=== PATIENT | male | born 1935 | race Caucasian/White ===

== ENCOUNTER 2017-04-09 22:53 | Inpatient (IN) | payer MEDICARE, OTHER ==
[~2017-04-09] VITALS: Ht 175.3 cm; Wt 108.0 kg
[~2017-04-09 22:53] MED LIST: ASPI81CH43 PO; ATOR10TA52 PO; CLOT1CRE56 TOP; DOCU-94 PO; FAMO-12 PO; FURO20TA3 PO; LACT10SO3 PO; MET25T PO; NYSTATIN CREAM TOP; POTA20TA53 PO
[2017-04-10] MEDS ORDERED: DILTIAZEM HCL 25 MG/5 ML VIAL IV ONE ×2 (00:45→01:00)
[2017-04-10 00:47] LABS: Hematocrit 36.4 % (41.0-53.0); Hemoglobin 12.2 g/dL (13.5-17.5); Mean Corpuscular Hemoglobin 27.4 pg (28.0-32.0); Mean Corpuscular Hgb Conc. 33.5 g/dL (32.0-36.0); Mean Corpuscular Volume 81.8 fL (80.0-100.0); Mean Platelet Volume 10.4 fL (7.4-10.4); Platelet Count (auto) 110 10^3/uL (140-450); Red Cell Distribution Width 16.5 % (11.6-16.0); SUSPECT VIEW TRANSMISSION; White Blood Cell 6.2 10^3/uL (4.4-10.8)
[2017-04-10 00:54] LABS: Metamyelocytes % 0; Myelocytes % 0; Promyelocytes % 0; Reactive Lymphocytes 0
[2017-04-10 00:56] LABS: Partial Thromboplastin Time 39.3 sec (22.64-33.71)
[2017-04-10 00:59] LABS: INR 1.9 (0.9-1.15); Prothrombin Time 20.8 sec (9.37-12.3)
[2017-04-10 01:13] LABS: Albumin 3.2 g/dL (3.4-5.0); BUN/Creatinine Ratio 12.1; Calcium 8.5 mg/dL (8.5-10.1); Magnesium 2.2 mg/dL (1.6-2.6); Platelet Estimate Decreased; Potassium 3.8 mmol/L (3.5-5.1)
[2017-04-10 01:14] LABS: RBC Morphology Normal
[2017-04-10 01:21] LABS: Bilirubin, Total 0.5 mg/dL (0.2-1.0)
[2017-04-10] MEDS ORDERED: MORPHINE SULF INJ 2 MG/ML SYRINGE 1ML IV PRN (02:15)
[2017-04-10] MEDS ORDERED: HYDROcodone-ACET 5/325MG TAB PO PRN (02:15)
[2017-04-10] MEDS ORDERED: METOPROLOL TARTRATE 25 MG TAB PO ONE (02:15)
[2017-04-10] MEDS ORDERED: NITROGLYCERIN 0.4 MG SL TAB SL PRN (02:15)
[2017-04-10] MEDS ORDERED: ACETAMINOPHEN 325 MG TAB PO PRN (02:15)
[2017-04-10] MEDS ORDERED: DOCUSATE SOD 100 MG CAP PO PRN (02:15)
[2017-04-10] MEDS ORDERED: ONDANSETRON HCL 4 MG/2 ML VIAL IV PRN (02:15)
[2017-04-10] MEDS ORDERED: ALBUTEROL SULF 2.5 MG/0.5ML(0.5%) NEB SOLN NEB PRN (02:15)
[2017-04-10] MEDS ORDERED: TEMAZEPAM 15 MG CAP PO PRN (02:15)
[2017-04-10 02:43] LABS: Temperature: 21.4 C (20.0-25.0)
[2017-04-10] MEDS ORDERED: METOPROLOL TARTRATE 50 MG TAB PO ONE (03:15)
[2017-04-10 04:11] VITALS: BP 148/77
[2017-04-10 08:31] LABS: Partial Thromboplastin Time 40.5 sec (22.64-33.71)
[2017-04-10 08:37] LABS: INR 1.84 (0.9-1.15); Prothrombin Time 20.2 sec (9.37-12.3)
[2017-04-10] MEDS ORDERED: DIGOXIN (250MCG/ML) 2 ML AMPULE IV ONE (08:45)
[2017-04-10] MEDS ORDERED: FUROSEMIDE 40 MG/4 ML VIAL IV ONE (08:45)
[2017-04-10 09:00] VITALS: BP 131/81
[2017-04-10] MEDS ORDERED: FUROSEMIDE 20 MG TAB PO SCH (10:00)
[2017-04-10] MEDS ORDERED: METOPROLOL TARTRATE 25 MG TAB PO SCH (10:00)
[2017-04-10] MEDS ORDERED: LEVOFLOXACIN 500 MG TAB PO ONE (11:00)
[2017-04-10] MEDS: FERROUS SULFATE 325 MG TAB PO SCH ×2 (11:24→17:40)
[2017-04-10] MEDS: predniSONE 20 MG TAB PO SCH (11:25)
[2017-04-10] MEDS: FAMOTIDINE 20 MG TAB PO SCH ×2 (11:25→21:25)
[2017-04-10] MEDS: ASPirin 81 mg TAB PO SCH (11:25)
[2017-04-10] MEDS: CLOPIDOGREL BISULFATE 75 MG TAB PO SCH (11:25)
[2017-04-10] MEDS ORDERED: DIGOXIN 0.25 MG TAB PO ONE (11:45)
[2017-04-10 12:43] VITALS: BP 126/77
[2017-04-10] MEDS ORDERED: SENN-58 PO (12:53)
[2017-04-10] MEDS ORDERED: LEVO500T21 PO (12:53)
[2017-04-10] MEDS ORDERED: METO-158 PO (12:53)
[2017-04-10 16:37] VITALS: BP 115/71
[2017-04-10] MEDS ORDERED: WARFARIN SODIUM 5 MG TAB PO ONE (17:00)
[2017-04-10 20:00] VITALS: BP 100/69
[2017-04-10 20:10] LABS: Urine Bilirubin Negative (Negative); Urine Blood Negative /uL (Negative); Urine Color Yellow (Yellow); Urine Glucose Normal (Normal); Urine Ketone Negative (Negative); Urine Mucus FEW (None Seen); Urine Nitrite Negative (Negative); Urine RBC <1 /hpf (0 - 3); Urine Urobilinogen Normal (Negative); Urine pH 5.5 (5.0-8.0)
[2017-04-10 21:39] VITALS: BP 100/69
[2017-04-10] MEDS ORDERED: ATORVASTATIN 20 MG TAB PO SCH (22:00)
[2017-04-10] MEDS ORDERED: PATIENTS OWN MEDICATION (simvastatin 40 MG) PO SCH ×2 (22:00)
[2017-04-11] MEDS ORDERED: METOPROLOL TARTRATE 25 MG TAB ONE (03:51)
[2017-04-11] MEDS ORDERED: METOPROLOL TARTRATE 25 MG TAB PO ONE (04:00)
[2017-04-11 04:39] VITALS: BP 128/79
[2017-04-11 07:41] LABS: Hematocrit 38.5 % (41.0-53.0); Hemoglobin 12.8 g/dL (13.5-17.5); Mean Corpuscular Hemoglobin 27.3 pg (28.0-32.0); Mean Corpuscular Hgb Conc. 33.3 g/dL (32.0-36.0); Mean Corpuscular Volume 82.1 fL (80.0-100.0); Platelet Count (auto) 120 10^3/uL (140-450); Red Cell Distribution Width 16.3 % (11.6-16.0); SUSPECT VIEW TRANSMISSION; White Blood Cell 7.7 10^3/uL (4.4-10.8)
[2017-04-11 07:47] LABS: Myelocytes % 0; Promyelocytes % 0; Reactive Lymphocytes 0
[2017-04-11 07:55] LABS: Partial Thromboplastin Time 38.5 sec (22.64-33.71)
[2017-04-11 07:57] LABS: INR 1.84 (0.9-1.15); Prothrombin Time 20.2 sec (9.37-12.3)
[2017-04-11 08:10] LABS: BUN/Creatinine Ratio 12.6; Calcium 8.7 mg/dL (8.5-10.1); Potassium 3.9 mmol/L (3.5-5.1)
[2017-04-11 08:22] LABS: Large Platelets FEW; Metamyelocytes % 1; Platelet Estimate Decrea; RBC Morphology Normal
[2017-04-11] MEDS: FERROUS SULFATE 325 MG TAB PO SCH (08:36)
[2017-04-11 09:00] VITALS: BP 126/75
[2017-04-11] MEDS ORDERED: DIGOXIN 0.25 MG TAB PO SCH (10:00)
[2017-04-11] MEDS ORDERED: FUROSEMIDE 20 MG TAB PO SCH (10:00)
[2017-04-11] MEDS ORDERED: LEVOFLOXACIN 500 MG TAB PO SCH (10:00)
[2017-04-11] MEDS ORDERED: METOPROLOL TARTRATE 50 MG TAB PO SCH (10:00)
[2017-04-11] MEDS ORDERED: METOPROLOL TARTRATE 25 MG TAB PO SCH (10:00)
[2017-04-11] MEDS: predniSONE 20 MG TAB PO SCH (10:11)
[2017-04-11] MEDS: CLOPIDOGREL BISULFATE 75 MG TAB PO SCH (10:11)
[2017-04-11] MEDS: ASPirin 81 mg TAB PO SCH (10:11)
[2017-04-11] MEDS: FAMOTIDINE 20 MG TAB PO SCH (10:11)
[2017-04-11 11:37] VITALS: BP 126/75
[2017-04-11 13:00] VITALS: BP 133/81
[2017-04-11] MEDS ORDERED: WARFARIN SODIUM 5 MG TAB PO ONE (17:00)
== END 2017-04-11 15:35 | disposition home health service (06) | DRG 308 ==
LOC: ER 22:54 → TELE 22:55 → TELE-WESTW 04-10 08:48
PROVIDERS: ADMIT Internal Medicine; ATTEND Family Medicine
DX: I48.91 Unspecified atrial fibrillation (principal); I50.33 Acute on chronic diastolic (congestive) heart failure; D68.59 Other primary thrombophilia; N39.0 Urinary tract infection, site not specified; E66.01 Morbid (severe) obesity due to excess calories; E83.51 Hypocalcemia; E83.52 Hypercalcemia; I11.0 Hypertensive heart disease with heart failure; I42.9 Cardiomyopathy, unspecified; J44.9 Chronic obstructive pulmonary disease, unspecified; Z86.73 Personal history of transient ischemic attack (TIA), and cerebral infarction without residual deficits; Z80.7 Family history of other malignant neoplasms of lymphoid, hematopoietic and related tissues; Z82.49 Family history of ischemic heart disease and other diseases of the circulatory system; Z83.3 Family history of diabetes mellitus; Z87.440 Personal history of urinary (tract) infections; Z95.5 Presence of coronary angioplasty implant and graft; Z90.89 Acquired absence of other organs; I25.2 Old myocardial infarction; Z88.6 Allergy status to analgesic agent; Z88.1 Allergy status to other antibiotic agents; Z88.8 Allergy status to other drugs, medicaments and biological substances; Z79.4 Long term (current) use of insulin; Z79.899 Other long term (current) drug therapy; Z86.711 Personal history of pulmonary embolism; Z68.35 Body mass index [BMI] 35.0-35.9, adult
CPT/HCPCS: 36415; 71010; 80048; 80053; 80162; 81001; 83735; 83880; 84484; 85007; 85027; 85610; 85730; 87086; 93005; 93306; 96374

== ENCOUNTER 2017-05-10 13:25 | Emergency (ER) | payer MEDICARE ==
[~2017-05-10] VITALS: Ht 175.3 cm; Wt 116.1 kg
[~2017-05-10 13:25] MED LIST changes: +LEVO500T21 PO; +METO-158 PO; +SENN-58 PO
[2017-05-10 14:16] LABS: Basophils # (auto) 0 uL; Basophils % (auto) 0.6 % (0.0-2.0); CONDITION Y; Eosinophils # (auto) 0 uL; Hematocrit 36.3 % (41.0-53.0); Hemoglobin 12.1 g/dL (13.5-17.5); Lymphocytes # (auto) 0.8 uL; Lymphocytes % (auto) 18.6 % (10.0-50.0); Mean Corpuscular Hemoglobin 27.4 pg (28.0-32.0); Mean Corpuscular Hgb Conc. 33.3 g/dL (32.0-36.0); Mean Corpuscular Volume 82.2 fL (80.0-100.0); Mean Platelet Volume 9.9 fL (7.4-10.4); Monocytes # (auto) 0.7 uL; Monocytes % (auto) 16.9 % (0.0-12.0); Neutrophils # (auto) 2.6 uL; Neutrophils % (auto) 62.9 % (37.0-80.0); Platelet Count (auto) 90 10^3/uL (140-450); Red Cell Distribution Width 16.7 % (11.6-16.0); SUSPECT SEE PRINTOUT; White Blood Cell 4.1 10^3/uL (4.4-10.8)
[2017-05-10 14:27] LABS: INR 2.72 (0.9-1.15)
[2017-05-10 14:37] LABS: Albumin 3.4 g/dL (3.4-5.0); BUN/Creatinine Ratio 6.5; Bilirubin, Total 0.4 mg/dL (0.2-1.0); Calcium 8.4 mg/dL (8.5-10.1); Potassium 4.1 mmol/L (3.5-5.1); Total Protein 6.6 g/dL (6.4-8.2)
[2017-05-10 16:13] VITALS: BP 124/78
== END 2017-05-10 17:35 | disposition home or self-care (01) ==
LOC: EDBD 13:25 → ER 13:25
DX: R04.0 Epistaxis (principal); I48.91 Unspecified atrial fibrillation; J44.9 Chronic obstructive pulmonary disease, unspecified; K21.9 Gastro-esophageal reflux disease without esophagitis; E78.5 Hyperlipidemia, unspecified; I25.2 Old myocardial infarction; I11.0 Hypertensive heart disease with heart failure; I50.9 Heart failure, unspecified; I25.119 Atherosclerotic heart disease of native coronary artery with unspecified angina pectoris; Z90.89 Acquired absence of other organs; Z79.899 Other long term (current) drug therapy; Z88.1 Allergy status to other antibiotic agents; Z88.6 Allergy status to analgesic agent
CPT/HCPCS: 36415; 80053; 85025; 85610

== ENCOUNTER 2017-09-29 07:26 | Inpatient (IN) | payer MEDICARE ==
[2017-09-29] VITALS (12 sets, daily range): BP systolic 94–121; BP diastolic 60–77
[~2017-09-29] VITALS: Ht 175.3 cm; Wt 94.5 kg
[2017-09-29] MEDS: ALBUTEROL SULF 2.5 MG/0.5ML(0.5%) NEB SOLN NEB SCH ×2 (00:02→11:53)
[2017-09-29] MEDS: IPRATROPIUM BROM 0.5 MG/2.5ML INH SOL NEB SCH ×2 (00:02→11:52)
[~2017-09-29 07:26] MED LIST changes: -ASPI81CH43 PO; -ATOR10TA52 PO; +ATOR20TA50 PO; +CHOL20007 PO; +CLOP75TA28 PO; +DIG0125T PO; -FAMO-12 PO; -LEVO500T21 PO; +LEVO750T64 PO; -METO-158 PO; -NYSTATIN CREAM TOP; +OMEP20CA74 PO; +SIMV40TA96 PO; +WARF6TAB21 PO
[2017-09-29] MEDS ORDERED: SODIUM CHLORIDE 0.9% 1,000 ML IV ONE (07:35)
[2017-09-29] MEDS ORDERED: SUCCINYLCHOLINE CHLORIDE 20 MG/ML 10ML VIAL IV ONE (07:43)
[2017-09-29] MEDS ORDERED: ETOMIDATE (2MG/ML) 20ML VIAL IV ONE ×2 (07:43→08:15)
[2017-09-29] MEDS ORDERED: MIDAZOLAM DRIP 50 mg/50mL 50 ML IV ONE (07:45)
[2017-09-29] MEDS ORDERED: cefTRIAXone 1GM/50ML D5W 50 ML IV ONE (07:45)
[2017-09-29] MEDS ORDERED: IPRATROPIUM BROM 0.5 MG/2.5ML INH SOL NEB ONE (07:45)
[2017-09-29] MEDS ORDERED: methylPREDNISolone SOD SUCC 125 MG/2 ML VL IV ONE (07:45)
[2017-09-29] MEDS ORDERED: LORazepam 2MG/ML-1ML VIAL IV ONE (07:45)
[2017-09-29] MEDS ORDERED: ALBUTEROL SULF 2.5 MG/0.5ML(0.5%) NEB SOLN NEB ONE (07:45)
[2017-09-29] MEDS ORDERED: PROPOFOL 100 ML IV ONE (08:00)
[2017-09-29 08:01] LABS: White Blood Cell 9.2 10^3/uL (4.4-10.8)
[2017-09-29 08:02] LABS: Hematocrit 38.4 % (41.0-53.0); Hemoglobin 12.5 g/dL (13.5-17.5); Mean Corpuscular Hemoglobin 26.5 pg (28.0-32.0); Mean Corpuscular Hgb Conc. 32.5 g/dL (32.0-36.0); Mean Corpuscular Volume 81.6 fL (80.0-100.0); Mean Platelet Volume 9.3 fL (6.9-10.8); Platelet Count (auto) 120 10^3/uL (140-450); Red Cell Distribution Width 15.9 % (11.8-14.3)
[2017-09-29 08:08] LABS: Metamyelocytes % 0; Myelocytes % 0; Promyelocytes % 0; Reactive Lymphocytes 0
[2017-09-29] MEDS: PROPOFOL 100 ML IV SCH ×2 (08:12→20:45)
[2017-09-29 08:25] LABS: Albumin 3.9 g/dL (3.4-5.0); BUN/Creatinine Ratio 8.4; Bilirubin, Total 0.7 mg/dL (0.2-1.0); Calcium 8.5 mg/dL (8.5-10.1); Potassium 3.9 mmol/L (3.5-5.1)
[2017-09-29 08:26] LABS: Platelet Estimate Decreased
[2017-09-29 08:30] LABS: Large Platelets FEW; Stomatocytes Few
[2017-09-29 08:38] LABS: Temperature: 21.4 C (20.0-25.0)
[2017-09-29] MEDS ORDERED: IOHEXOL 300 MG/ML 100ML BOTTLE IJ ONE (08:42)
[2017-09-29] MEDS ORDERED: IOHEXOL 350 MG/ML 100ML IJ ONE (08:43)
[2017-09-29] MEDS ORDERED: METOPROLOL TARTRATE 50 MG TAB PO ONE (08:45)
[2017-09-29] MEDS ORDERED: FUROSEMIDE 40 MG/4 ML VIAL IV ONE (08:45)
[2017-09-29 08:53] LABS: INR 1.57 (0.9-1.15); Partial Thromboplastin Time 33.4 sec (22.64-33.71); Prothrombin Time 17.2 sec (9.37-12.3)
[2017-09-29 08:53] LABS: Urine Bilirubin Negative (Negative); Urine Blood Negative /uL (Negative); Urine Color Yellow (Yellow); Urine Glucose Normal (Normal); Urine Ketone Negative (Negative); Urine Mucus FEW (None Seen); Urine Nitrite Negative (Negative); Urine RBC 1 /hpf (0 - 3); Urine Squamous Epithelial Cell FEW /hpf (<5); Urine Urobilinogen Normal (Negative); Urine pH 6.5 (5.0-8.0)
[2017-09-29] MEDS ORDERED: NITROGLYCERIN 0.4 MG SL TAB SL PRN (09:30)
[2017-09-29] MEDS ORDERED: LACTULOSE 20Gm/30ML SOLN NG PRN (09:30)
[2017-09-29] MEDS ORDERED: PROMETHAZINE HCL 25 MG/ML 1ML IV PRN (09:30)
[2017-09-29] MEDS ORDERED: MORPHINE SULF INJ 2 MG/ML SYRINGE 1ML IV PRN ×3 (09:30)
[2017-09-29] MEDS ORDERED: PATIENTS OWN MEDICATION (Lactulose 15 ML) PO PRN (09:30)
[2017-09-29] MEDS ORDERED: DEXTROSE (50%) 50ML SYRG IV PRN (09:30)
[2017-09-29] MEDS ORDERED: ENALAPRIL MALEATE 2.5 MG TAB NG SCH (10:00)
[2017-09-29] MEDS ORDERED: POTASSIUM CHL 20 Meq TABLET PO SCH (10:00)
[2017-09-29 11:10] LABS: Allen Test Yes; Base Excess 2.2 mmol/L (-2.0-2.0); Blood COHb 0.3 % (0.5-1.5); Blood MetHb 0.3 % (0.0-1.5); HCO3 27.5 mmol/L (22-26.0); MODE VENT - A/C; O2Hb 96.4 % (94.0-97.0); PCO2 45.9 mmHg (35.0-45.0); PCO2(T) 45.9 mmHg (35.0-45.0); PIP 17; PO2 99.9 mmHg (80.0-100.0); PO2(T) 99.9 mmHg (80.0-100.0); Room 1035-ERT; Sample Type Arterial; Spont Vt 497; pH 7.396 (7.350-7.450)
[2017-09-29] MEDS: SODIUM CHLOR 0.9% PF (SALINE LOCK) 10ML VIAL IV SCH ×2 (11:20→22:00)
[2017-09-29] MEDS: FUROSEMIDE 40 MG/4 ML VIAL IV SCH ×2 (11:57→18:33)
[2017-09-29] MEDS: LEVOFLOXACIN 500MG 100 ML IV SCH (11:57)
[2017-09-29] MEDS: CARVEDILOL 3.125 MG TAB NG SCH ×2 (11:57→22:00)
[2017-09-29] MEDS: CLOPIDOGREL BISULFATE 75 MG TAB PO SCH (11:58)
[2017-09-29] MEDS: methylPREDNISolone SOD SUCC 40 MG/ML VL IV SCH ×2 (11:58→17:45)
[2017-09-29] MEDS: NITROGLYCERIN 0.2MG/HR TOPICAL PATCH TD SCH (11:58)
[2017-09-29] MEDS: DIGOXIN 0.125 MG TAB PO SCH (11:58)
[2017-09-29] MEDS: InsuLIN REG 1unit/0.01ml Soln (100units/ml) SC SCH ×2 (12:00→18:55)
[2017-09-29] MEDS: ACCU-CHEK COMFORT CURVE STRIP VI SCH ×2 (12:39→18:34)
[2017-09-29] MEDS: CLINDAMYCIN 600MG IV 50 ML IV SCH ×2 (12:46→21:29)
[2017-09-29] MEDS ORDERED: WARFARIN SODIUM 2 MG TAB PO ONE (17:00)
[2017-09-29] MEDS ORDERED: NOREPINEPHRINE 8 MG/250ML KIT 250 ML IV SCH (17:00)
[2017-09-29] MEDS: ATORVASTATIN 20 MG TAB PO SCH (22:00)
[2017-09-30] VITALS (91 sets, daily range): BP systolic 89–146; BP diastolic 38–100
[2017-09-30] MEDS: ALBUTEROL SULF 2.5 MG/0.5ML(0.5%) NEB SOLN NEB SCH ×4 (00:02→18:25)
[2017-09-30] MEDS: IPRATROPIUM BROM 0.5 MG/2.5ML INH SOL NEB SCH ×4 (00:02→18:25)
[2017-09-30] MEDS ORDERED: AMIODARONE HCL 150 MG in D5W 5% 100 ML IV ONE (03:45)
[2017-09-30] MEDS ORDERED: AMIODARONE HCL 900 MG in DEXTROSE 500 ML IV SCH ×2 (03:48→09:48)
[2017-09-30] MEDS ORDERED: AMIODARONE HCL (50 MG/ ML) 3 ML VIAL IV ONE (03:54)
[2017-09-30] MEDS ORDERED: AMIODARONE HCL 900 MG IV ONE (03:55)
[2017-09-30] MEDS: CLINDAMYCIN 600MG IV 50 ML IV SCH ×2 (04:13→11:46)
[2017-09-30 04:50] LABS: Basophils # (auto) 0 uL; Eosinophils # (auto) 0 uL; Hemoglobin 11.3 g/dL (13.5-17.5); Lymphocytes # (auto) 0.5 uL; Mean Corpuscular Hgb Conc. 33.7 g/dL (32.0-36.0); Monocytes # (auto) 0.6 uL; Nucleated Red Blood Cells % 0.1 %; Red Cell Distribution Width 16.5 % (11.8-14.3); White Blood Cell 10.9 10^3/uL (4.4-10.8)
[2017-09-30 04:53] LABS: Basophils % (auto) 0.1 % (0.0-2.0); Hematocrit 33.6 % (41.0-53.0); Lymphocytes % (auto) 4.7 % (10.0-50.0); Mean Corpuscular Hemoglobin 26.6 pg (28.0-32.0); Mean Platelet Volume 9.2 fL (6.9-10.8); Monocytes % (auto) 5.1 % (0.0-12.0); Neutrophils # (auto) 9.9 uL; Neutrophils % (auto) 90.1 % (37.0-80.0); Platelet Count (auto) 143 10^3/uL (140-450)
[2017-09-30 05:05] LABS: INR 1.8 (0.9-1.15); Partial Thromboplastin Time 37.6 sec (22.64-33.71); Prothrombin Time 19.7 sec (9.37-12.3)
[2017-09-30 05:23] LABS: Albumin 3.4 g/dL (3.4-5.0); BUN/Creatinine Ratio 11.3; Bilirubin, Total 0.6 mg/dL (0.2-1.0); Calcium 8.7 mg/dL (8.5-10.1); Potassium 3.8 mmol/L (3.5-5.1)
[2017-09-30 05:25] LABS: B-Type Natriuretic Peptide 1159.09 pg/mL (0-100)
[2017-09-30] MEDS: methylPREDNISolone SOD SUCC 40 MG/ML VL IV SCH ×3 (05:26→11:46)
[2017-09-30] MEDS: FUROSEMIDE 40 MG/4 ML VIAL IV SCH ×2 (05:26→17:43)
[2017-09-30] MEDS: PROPOFOL 100 ML IV SCH (05:26)
[2017-09-30] MEDS: SODIUM CHLOR 0.9% PF (SALINE LOCK) 10ML VIAL IV SCH ×3 (05:27→22:00)
[2017-09-30 05:31] LABS: Temperature: 22.8 C (20.0-25.0)
[2017-09-30] MEDS: ACCU-CHEK COMFORT CURVE STRIP VI SCH ×5 (06:00→23:55)
[2017-09-30] MEDS: InsuLIN REG 1unit/0.01ml Soln (100units/ml) SC SCH ×5 (06:00→23:55)
[2017-09-30] MEDS ORDERED: PHENYLEPHRINE IV 250 ML IV ONE (09:06)
[2017-09-30] MEDS: PHENYLEPHRINE INJ 20 MG in SODIUM CHL 0.9% 250 ML IV SCH ×2 (09:15→16:41)
[2017-09-30 09:21] LABS: Allen Test Yes; Blood 02Sat 96.5 % (96-100); Blood COHb 0.4 % (0.5-1.5); Blood MetHb 0.3 % (0.0-1.5); HHb 3.5 % (0.0-5.0); MODE MASK - BIPAP; O2Hb 95.8 % (94.0-97.0); PCO2 69.5 mmHg (35.0-45.0); PCO2(T) 69.5 mmHg (35.0-45.0); PIP 14; PO2 102.7 mmHg (80.0-100.0); PO2(T) 102.7 mmHg (80.0-100.0); Sample Type Arterial; pH 7.238 (7.350-7.450)
[2017-09-30 09:36] LABS: Allen Test Modified; Base Excess 5.7 mmol/L (-2.0-2.0); Blood 02Sat 97.6 % (96-100); Blood COHb 0.6 % (0.5-1.5); Blood MetHb 0.2 % (0.0-1.5); HCO3 28.7 mmol/L (22-26.0); HHb 2.4 % (0.0-5.0); MODE VENT - A/C; O2Hb 96.8 % (94.0-97.0); PCO2 36.1 mmHg (35.0-45.0); PCO2(T) 36.1 mmHg (35.0-45.0); PIP 17; PO2 106.5 mmHg (80.0-100.0); PO2(T) 106.5 mmHg (80.0-100.0); Sample Type Arterial; Spont Vt 516; pH 7.518 (7.350-7.450)
[2017-09-30] MEDS: LEVOFLOXACIN 500MG 100 ML IV SCH (09:57)
[2017-09-30] MEDS: DIGOXIN 0.125 MG TAB PO SCH (09:57)
[2017-09-30] MEDS: CLOPIDOGREL BISULFATE 75 MG TAB PO SCH (09:57)
[2017-09-30] MEDS: NITROGLYCERIN 0.2MG/HR TOPICAL PATCH TD SCH (09:58)
[2017-09-30] MEDS: POTASSIUM CHL 10% (20 MEQ/15ML) 15ml ORAL SOLN PO SCH (09:58)
[2017-09-30] MEDS ORDERED: Fibersource Hn 1 Liter GT SCH (12:00)
[2017-09-30] MEDS ORDERED: VANCOMYCIN PER PHARMACY 0 MG IV SCH (12:15)
[2017-09-30] MEDS ORDERED: PANTOPRAZOLE 40 MG/10 ML VIAL IV ONE (12:15)
[2017-09-30] MEDS ORDERED: DIGOXIN (250MCG/ML) 2 ML AMPULE IV ONE (12:45)
[2017-09-30 13:40] LABS: Albumin 3.2 g/dL (3.4-5.0); BUN/Creatinine Ratio 13.7; Bilirubin, Total 0.6 mg/dL (0.2-1.0); Calcium 8.6 mg/dL (8.5-10.1); Potassium 3.7 mmol/L (3.5-5.1); Total Protein 6.7 g/dL (6.4-8.2)
[2017-09-30] MEDS: ENOXAPARIN SOD 100 MG/1 ML SYRINGE SC SCH ×2 (13:41→22:00)
[2017-09-30] MEDS ORDERED: VANCOMYCIN 1,250 MG in SODIUM CHL 0.9% 250 ML IV ONE (14:00)
[2017-09-30 16:25] LABS: Allen Test Modified; Base Excess 5.7 mmol/L (-2.0-2.0); Blood 02Sat 96.4 % (96-100); Blood COHb 0.3 % (0.5-1.5); Blood MetHb 0.2 % (0.0-1.5); HCO3 29.7 mmol/L (22-26.0); HHb 3.6 % (0.0-5.0); MODE VENT - A/C; O2Hb 95.9 % (94.0-97.0); PCO2 41.3 mmHg (35.0-45.0); PCO2(T) 41.3 mmHg (35.0-45.0); PIP 16; PO2 98.2 mmHg (80.0-100.0); PO2(T) 98.2 mmHg (80.0-100.0); Sample Type Arterial; Spont Vt 462; pH 7.475 (7.350-7.450)
[2017-09-30] MEDS ORDERED: WARFARIN SODIUM 2 MG TAB PO ONE (17:00)
[2017-09-30] MEDS ORDERED: SODIUM CHLORIDE IV NR ×9 (20:00)
[2017-09-30] MEDS ORDERED: [UNRECOGNIZED DRUG - OTHER] IV NR ×9 (20:00)
[2017-09-30] MEDS ORDERED: SODIUM ACETATE IV NR ×9 (20:00)
[2017-09-30] MEDS ORDERED: POTASSIUM ACETATE IV NR ×9 (20:00)
[2017-09-30] MEDS: CARVEDILOL 3.125 MG TAB NG SCH (22:00)
[2017-09-30] MEDS: AMIODARONE HCL 200 MG TAB NG SCH (22:00)
[2017-09-30] MEDS: ATORVASTATIN 20 MG TAB PO SCH (22:00)
[2017-10-01] VITALS (103 sets, daily range): BP systolic 85–142; BP diastolic 48–91
[2017-10-01] MEDS: PROPOFOL 100 ML IV SCH ×5 (00:13→20:05)
[2017-10-01] MEDS: IPRATROPIUM BROM 0.5 MG/2.5ML INH SOL NEB SCH ×4 (00:26→18:56)
[2017-10-01] MEDS: ALBUTEROL SULF 2.5 MG/0.5ML(0.5%) NEB SOLN NEB SCH ×4 (00:26→18:56)
[2017-10-01] MEDS: PHENYLEPHRINE INJ 20 MG in SODIUM CHL 0.9% 250 ML IV SCH ×3 (01:55→18:35)
[2017-10-01 03:58] LABS: Basophils # (auto) 0 uL; Eosinophils # (auto) 0 uL; Hematocrit 28.7 % (41.0-53.0); Lymphocytes # (auto) 0.5 uL; Monocytes # (auto) 1.2 uL
[2017-10-01 04:01] LABS: Basophils % (auto) 0.1 % (0.0-2.0); Hemoglobin 9.7 g/dL (13.5-17.5); Lymphocytes % (auto) 5.1 % (10.0-50.0); Mean Corpuscular Hemoglobin 26.6 pg (28.0-32.0); Mean Corpuscular Hgb Conc. 33.7 g/dL (32.0-36.0); Mean Corpuscular Volume 78.8 fL (80.0-100.0); Mean Platelet Volume 9.5 fL (6.9-10.8); Neutrophils # (auto) 7.8 uL; Neutrophils % (auto) 81.8 % (37.0-80.0); Nucleated Red Blood Cells % 0.1 %; Red Cell Distribution Width 16.4 % (11.8-14.3); White Blood Cell 9.5 10^3/uL (4.4-10.8)
[2017-10-01 04:06] LABS: Calcium 8.7 mg/dL (8.5-10.1); Magnesium 2.3 mg/dL (1.6-2.6); Potassium 3.6 mmol/L (3.5-5.1)
[2017-10-01 04:08] LABS: BUN/Creatinine Ratio 15.7; INR 3.63 (0.9-1.15); Prothrombin Time 40.1 sec (9.37-12.3)
[2017-10-01 04:25] LABS: Bilirubin, Total 0.5 mg/dL (0.2-1.0); Total Protein 5.9 g/dL (6.4-8.2)
[2017-10-01 05:01] LABS: Platelet Count (auto) 92 10^3/uL (140-450)
[2017-10-01] MEDS: InsuLIN REG 1unit/0.01ml Soln (100units/ml) SC SCH ×3 (06:00→18:00)
[2017-10-01] MEDS: SODIUM CHLOR 0.9% PF (SALINE LOCK) 10ML VIAL IV SCH ×3 (06:00→22:00)
[2017-10-01] MEDS: ACCU-CHEK COMFORT CURVE STRIP VI SCH ×3 (06:00→18:00)
[2017-10-01] MEDS: FUROSEMIDE 40 MG/4 ML VIAL IV SCH ×2 (06:00→18:00)
[2017-10-01 07:07] LABS: Allen Test Modified; Base Excess 7.4 mmol/L (-2.0-2.0); Blood 02Sat 97.5 % (96-100); Blood COHb 0.4 % (0.5-1.5); Blood MetHb 0.3 % (0.0-1.5); HCO3 31.2 mmol/L (22-26.0); HHb 2.5 % (0.0-5.0); MODE VENT - A/C; O2Hb 96.8 % (94.0-97.0); PCO2 40.7 mmHg (35.0-45.0); PCO2(T) 40.7 mmHg (35.0-45.0); PO2 108.7 mmHg (80.0-100.0); PO2(T) 108.7 mmHg (80.0-100.0); Sample Type Arterial; pH 7.502 (7.350-7.450)
[2017-10-01] MEDS: POTASSIUM CHL 10% (20 MEQ/15ML) 15ml ORAL SOLN PO SCH (10:00)
[2017-10-01] MEDS: CLOPIDOGREL BISULFATE 75 MG TAB PO SCH (10:47)
[2017-10-01] MEDS: ENOXAPARIN SOD 100 MG/1 ML SYRINGE SC SCH (10:47)
[2017-10-01] MEDS: AMIODARONE HCL 200 MG TAB NG SCH ×2 (10:47→22:50)
[2017-10-01] MEDS: PANTOPRAZOLE 40 MG/10 ML VIAL IV SCH (10:47)
[2017-10-01] MEDS: LEVOFLOXACIN 500MG 100 ML IV SCH (10:48)
[2017-10-01] MEDS: CARVEDILOL 3.125 MG TAB NG SCH ×2 (10:49→22:30)
[2017-10-01] MEDS ORDERED: VANCOMYCIN 1GM/250ML 250 ML IV ONE (11:00)
[2017-10-01] MEDS ORDERED: LINEZOLID 600MG/300ML 300 ML IV ONE (11:15)
[2017-10-01 11:53] LABS: Allen Test Modified; Base Excess 6.2 mmol/L (-2.0-2.0); Blood 02Sat 97.4 % (96-100); Blood COHb 0.3 % (0.5-1.5); Blood MetHb 0.3 % (0.0-1.5); HCO3 30.7 mmol/L (22-26.0); HHb 2.6 % (0.0-5.0); MODE VENT - A/C; O2Hb 96.8 % (94.0-97.0); PCO2 43.9 mmHg (35.0-45.0); PCO2(T) 43.9 mmHg (35.0-45.0); PO2 113.5 mmHg (80.0-100.0); PO2(T) 113.5 mmHg (80.0-100.0); Sample Type Arterial; pH 7.462 (7.350-7.450)
[2017-10-01] MEDS: ATORVASTATIN 20 MG TAB PO SCH (22:37)
[2017-10-01] MEDS: LINEZOLID 600MG/300ML 300 ML IV SCH (22:50)
[2017-10-02] VITALS (103 sets, daily range): BP systolic 99–151; BP diastolic 40–99
[2017-10-02] MEDS: PROPOFOL 100 ML IV SCH ×4 (00:05→19:17)
[2017-10-02] MEDS: IPRATROPIUM BROM 0.5 MG/2.5ML INH SOL NEB SCH ×4 (00:19→18:25)
[2017-10-02] MEDS: ALBUTEROL SULF 2.5 MG/0.5ML(0.5%) NEB SOLN NEB SCH ×4 (00:19→18:26)
[2017-10-02] MEDS: ACCU-CHEK COMFORT CURVE STRIP VI SCH ×4 (00:20→17:50)
[2017-10-02] MEDS: InsuLIN REG 1unit/0.01ml Soln (100units/ml) SC SCH ×4 (00:25→18:21)
[2017-10-02] MEDS: PHENYLEPHRINE INJ 20 MG in SODIUM CHL 0.9% 250 ML IV SCH (02:55)
[2017-10-02 04:08] LABS: Basophils # (auto) 0 uL; Eosinophils # (auto) 0 uL; Eosinophils % (auto) 0.1 % (0.0-7.0); Monocytes # (auto) 1.1 uL; Nucleated Red Blood Cells % 0.1 %; Red Cell Distribution Width 16.5 % (11.8-14.3)
[2017-10-02 04:10] LABS: Basophils % (auto) 0.2 % (0.0-2.0); Hematocrit 30.1 % (41.0-53.0); Hemoglobin 10.1 g/dL (13.5-17.5); Lymphocytes # (auto) 1.1 uL; Lymphocytes % (auto) 16.1 % (10.0-50.0); Mean Corpuscular Hemoglobin 26.5 pg (28.0-32.0); Mean Corpuscular Hgb Conc. 33.5 g/dL (32.0-36.0); Mean Corpuscular Volume 79.1 fL (80.0-100.0); Mean Platelet Volume 9.4 fL (6.9-10.8); Monocytes % (auto) 16.3 % (0.0-12.0); Neutrophils # (auto) 4.7 uL; Neutrophils % (auto) 67.3 % (37.0-80.0); Platelet Count (auto) 101 10^3/uL (140-450)
[2017-10-02 04:25] LABS: Albumin 3.1 g/dL (3.4-5.0); Calcium 8.4 mg/dL (8.5-10.1); Potassium 3.2 mmol/L (3.5-5.1)
[2017-10-02 04:32] LABS: INR 3.72 (0.9-1.15); Prothrombin Time 41.1 sec (9.37-12.3)
[2017-10-02 04:49] LABS: B-Type Natriuretic Peptide 269.89 pg/mL (0-100)
[2017-10-02 04:50] LABS: Temperature: 21.9 C (20.0-25.0)
[2017-10-02 05:05] LABS: BUN/Creatinine Ratio 17.8; Bilirubin, Total 0.5 mg/dL (0.2-1.0); Total Protein 6.5 g/dL (6.4-8.2)
[2017-10-02] MEDS ORDERED: POTASSIUM CHL 10% (20 MEQ/15ML) 15ml ORAL SOLN PO ONE (05:30)
[2017-10-02] MEDS: FUROSEMIDE 40 MG/4 ML VIAL IV SCH ×2 (06:09→17:50)
[2017-10-02] MEDS: SODIUM CHLOR 0.9% PF (SALINE LOCK) 10ML VIAL IV SCH ×3 (06:09→22:00)
[2017-10-02 08:30] LABS: Allen Test Yes; Base Excess 5.6 mmol/L (-2.0-2.0); Blood 02Sat 96.3 % (96-100); Blood COHb 0.3 % (0.5-1.5); Blood MetHb 0.5 % (0.0-1.5); HCO3 30.4 mmol/L (22-26.0); HHb 3.7 % (0.0-5.0); MODE VENT - A/C; O2Hb 95.5 % (94.0-97.0); PCO2 44.9 mmHg (35.0-45.0); PCO2(T) 44.9 mmHg (35.0-45.0); PO2 90.1 mmHg (80.0-100.0); PO2(T) 90.1 mmHg (80.0-100.0); Sample Type Arterial; pH 7.448 (7.350-7.450)
[2017-10-02] MEDS: AMIODARONE HCL 200 MG TAB NG SCH ×2 (10:00→22:00)
[2017-10-02] MEDS: LEVOFLOXACIN 500MG 100 ML IV SCH (10:00)
[2017-10-02] MEDS: CLOPIDOGREL BISULFATE 75 MG TAB PO SCH (10:00)
[2017-10-02] MEDS: CARVEDILOL 3.125 MG TAB NG SCH ×2 (10:00→22:00)
[2017-10-02] MEDS: PANTOPRAZOLE 40 MG/10 ML VIAL IV SCH (10:00)
[2017-10-02] MEDS: LINEZOLID 600MG/300ML 300 ML IV SCH ×2 (11:00→22:44)
[2017-10-02] MEDS: ATORVASTATIN 20 MG TAB PO SCH (22:00)
[2017-10-03] VITALS (86 sets, daily range): BP systolic 108–163; BP diastolic 68–97
[2017-10-03] MEDS: IPRATROPIUM BROM 0.5 MG/2.5ML INH SOL NEB SCH ×4 (00:38→18:42)
[2017-10-03] MEDS: ALBUTEROL SULF 2.5 MG/0.5ML(0.5%) NEB SOLN NEB SCH ×4 (00:38→18:41)
[2017-10-03 03:53] LABS: Hematocrit 31.4 % (41.0-53.0); Hemoglobin 10.3 g/dL (13.5-17.5); Mean Corpuscular Hemoglobin 25.8 pg (28.0-32.0); Mean Corpuscular Hgb Conc. 32.6 g/dL (32.0-36.0); Mean Corpuscular Volume 79.2 fL (80.0-100.0); Mean Platelet Volume 9.5 fL (6.9-10.8); Platelet Count (auto) 103 10^3/uL (140-450); Red Cell Distribution Width 16.3 % (11.8-14.3)
[2017-10-03 03:58] LABS: Metamyelocytes % 0; Myelocytes % 0; Promyelocytes % 0; Reactive Lymphocytes 0
[2017-10-03 04:09] LABS: INR 2.2 (0.9-1.15); Prothrombin Time 24.2 sec (9.37-12.3)
[2017-10-03 04:42] LABS: Albumin 3.2 g/dL (3.4-5.0); BUN/Creatinine Ratio 17.9; Bilirubin, Total 0.5 mg/dL (0.2-1.0); Calcium 8.2 mg/dL (8.5-10.1); Potassium 3.4 mmol/L (3.5-5.1); Total Protein 6.6 g/dL (6.4-8.2)
[2017-10-03] MEDS: SODIUM CHLOR 0.9% PF (SALINE LOCK) 10ML VIAL IV SCH ×3 (05:54→22:15)
[2017-10-03] MEDS: FUROSEMIDE 40 MG/4 ML VIAL IV SCH ×2 (05:54→17:59)
[2017-10-03] MEDS: InsuLIN REG 1unit/0.01ml Soln (100units/ml) SC SCH ×4 (05:55→17:58)
[2017-10-03] MEDS: ACCU-CHEK COMFORT CURVE STRIP VI SCH ×4 (05:55→17:57)
[2017-10-03 07:11] LABS: Allen Test Modified; Base Excess 9.3 mmol/L (-2.0-2.0); Blood 02Sat 97.1 % (96-100); Blood COHb 0.4 % (0.5-1.5); Blood MetHb 0.2 % (0.0-1.5); HCO3 34.4 mmol/L (22-26.0); HHb 2.9 % (0.0-5.0); MODE VENT - A/C; O2Hb 96.5 % (94.0-97.0); PCO2 49.1 mmHg (35.0-45.0); PCO2(T) 49.1 mmHg (35.0-45.0); Sample Type Arterial; pH 7.463 (7.350-7.450)
[2017-10-03 08:49] LABS: Anisocytosis Slight; Hypochromia Slight; Microcytosis Slight; Platelet Estimate Decreased; Stomatocytes Few
[2017-10-03] MEDS: PANTOPRAZOLE 40 MG/10 ML VIAL IV SCH (09:27)
[2017-10-03] MEDS: LEVOFLOXACIN 500MG 100 ML IV SCH (09:27)
[2017-10-03] MEDS: POTASSIUM CHL 10% (20 MEQ/15ML) 15ml ORAL SOLN PO SCH (09:28)
[2017-10-03] MEDS: AMIODARONE HCL 200 MG TAB NG SCH ×2 (09:28→22:00)
[2017-10-03] MEDS: CARVEDILOL 3.125 MG TAB NG SCH ×2 (09:28→22:00)
[2017-10-03] MEDS: CLOPIDOGREL BISULFATE 75 MG TAB PO SCH (09:29)
[2017-10-03] MEDS: LINEZOLID 600MG/300ML 300 ML IV SCH ×2 (11:07→22:38)
[2017-10-03] MEDS ORDERED: HYDROmorphone HCL 2 MG/ML VL IV PRN (15:00)
[2017-10-03] MEDS ORDERED: POTASSIUM CHL 10% (20 MEQ/15ML) 15ml ORAL SOLN PO ONE (15:00)
[2017-10-03] MEDS ORDERED: WARFARIN SODIUM 2 MG TAB PO ONE (17:00)
[2017-10-03] MEDS: PROPOFOL 100 ML IV SCH (18:57)
[2017-10-03] MEDS: ATORVASTATIN 20 MG TAB PO SCH (22:00)
[2017-10-04] VITALS (73 sets, daily range): BP systolic 94–172; BP diastolic 52–96
[2017-10-04] MEDS: IPRATROPIUM BROM 0.5 MG/2.5ML INH SOL NEB SCH ×4 (00:14→20:14)
[2017-10-04] MEDS: ALBUTEROL SULF 2.5 MG/0.5ML(0.5%) NEB SOLN NEB SCH ×4 (00:14→20:14)
[2017-10-04 04:23] LABS: Hemoglobin 10.8 g/dL (13.5-17.5); Mean Corpuscular Hemoglobin 26.1 pg (28.0-32.0); White Blood Cell 8.1 10^3/uL (4.4-10.8)
[2017-10-04 04:25] LABS: Hematocrit 32.6 % (41.0-53.0); Mean Platelet Volume 9.7 fL (6.9-10.8); Platelet Count (auto) 104 10^3/uL (140-450); Red Cell Distribution Width 16.3 % (11.8-14.3)
[2017-10-04 04:32] LABS: INR 1.24 (0.9-1.15); Partial Thromboplastin Time 34.9 sec (22.64-33.71); Prothrombin Time 13.5 sec (9.37-12.3)
[2017-10-04 04:33] LABS: Metamyelocytes % 0; Myelocytes % 0; Promyelocytes % 0; Reactive Lymphocytes 0
[2017-10-04 04:37] LABS: Albumin 3.1 g/dL (3.4-5.0); BUN/Creatinine Ratio 20.7; Calcium 8.4 mg/dL (8.5-10.1); Magnesium 2.6 mg/dL (1.6-2.6)
[2017-10-04 04:54] LABS: Bilirubin, Total 0.7 mg/dL (0.2-1.0); Total Protein 6.9 g/dL (6.4-8.2)
[2017-10-04] MEDS: SODIUM CHLOR 0.9% PF (SALINE LOCK) 10ML VIAL IV SCH ×3 (06:00→22:00)
[2017-10-04] MEDS: InsuLIN REG 1unit/0.01ml Soln (100units/ml) SC SCH ×4 (06:00→18:00)
[2017-10-04] MEDS: FUROSEMIDE 40 MG/4 ML VIAL IV SCH ×2 (06:00→19:23)
[2017-10-04] MEDS: ACCU-CHEK COMFORT CURVE STRIP VI SCH ×4 (06:00→18:00)
[2017-10-04 06:02] LABS: Hypochromia Slight; Microcytosis Slight; Platelet Estimate Decreased
[2017-10-04 06:03] LABS: Large Platelets FEW; Stomatocytes Few
[2017-10-04 08:15] LABS: Base Excess 8.3 mmol/L (-2.0-2.0); Blood 02Sat 98.4 % (96-100); Blood COHb 1.4 % (0.5-1.5); Blood MetHb 0.2 % (0.0-1.5); HCO3 32.8 mmol/L (22-26.0); HHb 1.6 % (0.0-5.0); MODE VENT - A/C; O2Hb 96.8 % (94.0-97.0); PCO2 44.7 mmHg (35.0-45.0); PCO2(T) 44.7 mmHg (35.0-45.0); PO2 130.8 mmHg (80.0-100.0); PO2(T) 130.8 mmHg (80.0-100.0); Sample Type Arterial; pH 7.483 (7.350-7.450)
[2017-10-04] MEDS: PANTOPRAZOLE 40 MG/10 ML VIAL IV SCH (10:46)
[2017-10-04] MEDS: CLOPIDOGREL BISULFATE 75 MG TAB PO SCH (10:47)
[2017-10-04] MEDS: LINEZOLID 600MG/300ML 300 ML IV SCH ×2 (10:47→23:13)
[2017-10-04] MEDS: CARVEDILOL 3.125 MG TAB NG SCH ×2 (10:47→22:00)
[2017-10-04] MEDS: POTASSIUM CHL 10% (20 MEQ/15ML) 15ml ORAL SOLN PO SCH (10:48)
[2017-10-04] MEDS: AMIODARONE HCL 200 MG TAB NG SCH ×2 (10:48→22:00)
[2017-10-04 11:35] LABS: Blood 02Sat 97.7 % (96-100); Blood COHb 0.4 % (0.5-1.5); Blood MetHb 0.2 % (0.0-1.5); HCO3 30.6 mmol/L (22-26.0); HHb 2.3 % (0.0-5.0); MODE VENT - CPAP; O2Hb 97.1 % (94.0-97.0); PCO2 35.8 mmHg (35.0-45.0); PCO2(T) 35.8 mmHg (35.0-45.0); PIP 17; PO2 106.2 mmHg (80.0-100.0); PO2(T) 106.2 mmHg (80.0-100.0); Pressure Support 8; Sample Type Arterial; Spont Vt 505
[2017-10-04] MEDS ORDERED: acetaZOLAMIDE SODIUM 500 MG VL IV ONE (12:15)
[2017-10-04] MEDS: LEVOFLOXACIN 500MG 100 ML IV SCH (13:09)
[2017-10-04] MEDS ORDERED: WARFARIN SODIUM 2.5 MG TAB PO ONE (17:00)
[2017-10-04] MEDS: ATORVASTATIN 20 MG TAB PO SCH (22:00)
[2017-10-05] VITALS (33 sets, daily range): BP systolic 120–157; BP diastolic 64–84
[2017-10-05] MEDS: ALBUTEROL SULF 2.5 MG/0.5ML(0.5%) NEB SOLN NEB SCH ×4 (00:41→19:26)
[2017-10-05] MEDS: IPRATROPIUM BROM 0.5 MG/2.5ML INH SOL NEB SCH ×6 (00:41→23:21)
[2017-10-05 04:11] LABS: Hemoglobin 10.8 g/dL (13.5-17.5); Mean Platelet Volume 9.8 fL (6.9-10.8); Platelet Count (auto) 112 10^3/uL (140-450)
[2017-10-05 04:14] LABS: Mean Corpuscular Hemoglobin 26.1 pg (28.0-32.0); Mean Corpuscular Hgb Conc. 32.7 g/dL (32.0-36.0); Mean Corpuscular Volume 79.8 fL (80.0-100.0); White Blood Cell 9.2 10^3/uL (4.4-10.8)
[2017-10-05 04:15] LABS: Metamyelocytes % 0; Myelocytes % 0; Promyelocytes % 0; Reactive Lymphocytes 0
[2017-10-05 04:25] LABS: INR 1.17 (0.9-1.15); Prothrombin Time 12.8 sec (9.37-12.3)
[2017-10-05 04:30] LABS: BUN/Creatinine Ratio 25.8; Calcium 8.6 mg/dL (8.5-10.1); Potassium 3.3 mmol/L (3.5-5.1)
[2017-10-05] MEDS: ACCU-CHEK COMFORT CURVE STRIP VI SCH ×5 (06:00→23:59)
[2017-10-05] MEDS: InsuLIN REG 1unit/0.01ml Soln (100units/ml) SC SCH ×5 (06:00→23:59)
[2017-10-05] MEDS: FUROSEMIDE 40 MG/4 ML VIAL IV SCH ×2 (06:00→18:23)
[2017-10-05] MEDS: SODIUM CHLOR 0.9% PF (SALINE LOCK) 10ML VIAL IV SCH ×3 (06:00→22:00)
[2017-10-05 06:48] LABS: Hypochromia Slight; Large Platelets FEW; Platelet Estimate Decreased
[2017-10-05] MEDS: LEVOFLOXACIN 500MG 100 ML IV SCH (09:37)
[2017-10-05] MEDS: PANTOPRAZOLE 40 MG/10 ML VIAL IV SCH (09:37)
[2017-10-05] MEDS: CLOPIDOGREL BISULFATE 75 MG TAB PO SCH (09:42)
[2017-10-05] MEDS: POTASSIUM CHL 10% (20 MEQ/15ML) 15ml ORAL SOLN PO SCH (09:42)
[2017-10-05] MEDS: CARVEDILOL 3.125 MG TAB NG SCH ×2 (10:00→22:03)
[2017-10-05] MEDS: AMIODARONE HCL 200 MG TAB NG SCH ×2 (10:00→22:03)
[2017-10-05] MEDS: LINEZOLID 600MG/300ML 300 ML IV SCH ×2 (11:04→23:50)
[2017-10-05] MEDS: POTASSIUM CHL 20MEQ/50ML 50 ML IV SCH ×2 (11:51→13:04)
[2017-10-05] MEDS: ACETYLCYSTEINE 10 %(100MG/ML) SOL 4ML IN SCH ×2 (15:13→19:27)
[2017-10-05] MEDS: HYDROcodone-ACET 5/325MG TAB PO PRN (18:47)
[2017-10-05] MEDS: ATORVASTATIN 20 MG TAB PO SCH (22:03)
[2017-10-05] MEDS: ALBUTEROL SULF 2.5 MG/0.5ML(0.5%) NEB SOLN NEB PRN (23:18)
[2017-10-05] MEDS: BUDESONIDE (INHALATION) 0.5 MG/2 ML NEB NEB SCH (23:19)
[2017-10-05] MEDS: ACETYLCYSTEINE 10 %(100MG/ML) SOL 4ML NEB SCH (23:19)
[2017-10-06] VITALS (74 sets, daily range): BP systolic 126–166; BP diastolic 68–122
[2017-10-06] MEDS: ACETYLCYSTEINE 10 %(100MG/ML) SOL 4ML NEB SCH ×6 (02:08→22:00)
[2017-10-06] MEDS: ALBUTEROL SULF 2.5 MG/0.5ML(0.5%) NEB SOLN NEB PRN (02:08)
[2017-10-06 03:59] LABS: White Blood Cell 11.6 10^3/uL (4.4-10.8)
[2017-10-06 04:01] LABS: Hematocrit 34.4 % (41.0-53.0); Mean Corpuscular Hemoglobin 25.5 pg (28.0-32.0); Mean Corpuscular Volume 79.8 fL (80.0-100.0); Mean Platelet Volume 9.4 fL (6.9-10.8); Platelet Count (auto) 115 10^3/uL (140-450); Red Cell Distribution Width 15.8 % (11.8-14.3)
[2017-10-06 04:13] LABS: INR 1.12 (0.9-1.15); Prothrombin Time 12.2 sec (9.37-12.3)
[2017-10-06 04:15] LABS: Myelocytes % 0; Promyelocytes % 0; Reactive Lymphocytes 0
[2017-10-06 04:16] LABS: BUN/Creatinine Ratio 28.4; Calcium 8.9 mg/dL (8.5-10.1); Potassium 3.2 mmol/L (3.5-5.1)
[2017-10-06 05:11] LABS: Hypersegmented Neutrophils Present; Metamyelocytes % 5
[2017-10-06 05:12] LABS: Platelet Estimate Decreased; RBC Morphology Normal
[2017-10-06] MEDS: HYDROcodone-ACET 5/325MG TAB PO PRN (05:30)
[2017-10-06] MEDS: ALBUTEROL SULF 2.5 MG/0.5ML(0.5%) NEB SOLN NEB SCH ×4 (06:24→19:20)
[2017-10-06] MEDS: IPRATROPIUM BROM 0.5 MG/2.5ML INH SOL NEB SCH ×4 (06:24→19:20)
[2017-10-06] MEDS: SODIUM CHLOR 0.9% PF (SALINE LOCK) 10ML VIAL IV SCH ×3 (06:33→22:22)
[2017-10-06] MEDS: ACCU-CHEK COMFORT CURVE STRIP VI SCH ×3 (06:33→18:00)
[2017-10-06] MEDS: FUROSEMIDE 40 MG/4 ML VIAL IV SCH ×2 (06:33→18:01)
[2017-10-06] MEDS: InsuLIN REG 1unit/0.01ml Soln (100units/ml) SC SCH ×4 (06:33→23:56)
[2017-10-06] MEDS: BUDESONIDE (INHALATION) 0.5 MG/2 ML NEB NEB SCH ×2 (10:06→19:20)
[2017-10-06] MEDS: CLOPIDOGREL BISULFATE 75 MG TAB PO SCH (10:29)
[2017-10-06] MEDS: AMIODARONE HCL 200 MG TAB NG SCH ×2 (10:29→22:23)
[2017-10-06] MEDS: PANTOPRAZOLE 40 MG/10 ML VIAL IV SCH (10:29)
[2017-10-06] MEDS: LEVOFLOXACIN 500MG 100 ML IV SCH (10:32)
[2017-10-06] MEDS: CARVEDILOL 3.125 MG TAB NG SCH ×2 (10:36→22:23)
[2017-10-06] MEDS: POTASSIUM CHL 10% (20 MEQ/15ML) 15ml ORAL SOLN PO SCH (10:37)
[2017-10-06] MEDS: LINEZOLID 600MG/300ML 300 ML IV SCH ×2 (12:04→23:14)
[2017-10-06] MEDS ORDERED: WARFARIN SODIUM 10 MG TAB PO ONE (13:30)
[2017-10-06] MEDS: ATORVASTATIN 20 MG TAB PO SCH (22:23)
[2017-10-07] VITALS (59 sets, daily range): BP systolic 123–148; BP diastolic 53–86
[2017-10-07] MEDS: ACCU-CHEK COMFORT CURVE STRIP VI SCH ×2 (00:15→06:04)
[2017-10-07] MEDS: ACETYLCYSTEINE 10 %(100MG/ML) SOL 4ML NEB SCH ×6 (02:29→22:25)
[2017-10-07] MEDS: ALBUTEROL SULF 2.5 MG/0.5ML(0.5%) NEB SOLN NEB PRN ×2 (02:29→22:24)
[2017-10-07 04:07] LABS: White Blood Cell 9.9 10^3/uL (4.4-10.8)
[2017-10-07 04:09] LABS: Hematocrit 33.4 % (41.0-53.0); Hemoglobin 10.9 g/dL (13.5-17.5); Mean Corpuscular Hgb Conc. 32.6 g/dL (32.0-36.0); Mean Corpuscular Volume 79.7 fL (80.0-100.0); Mean Platelet Volume 9.4 fL (6.9-10.8); Platelet Count (auto) 116 10^3/uL (140-450)
[2017-10-07 04:18] LABS: INR 1.09 (0.9-1.15); Partial Thromboplastin Time 33.6 sec (22.64-33.71); Prothrombin Time 11.9 sec (9.37-12.3)
[2017-10-07 04:21] LABS: Metamyelocytes % 0; Myelocytes % 0; Promyelocytes % 0; Reactive Lymphocytes 0
[2017-10-07 04:40] LABS: BUN/Creatinine Ratio 30.3; Calcium 8.8 mg/dL (8.5-10.1); Potassium 3.1 mmol/L (3.5-5.1)
[2017-10-07 05:01] LABS: Hypersegmented Neutrophils Present; Platelet Estimate Decreased
[2017-10-07 05:02] LABS: Anisocytosis Slight; Microcytosis Slight
[2017-10-07] MEDS: InsuLIN REG 1unit/0.01ml Soln (100units/ml) SC SCH (06:00)
[2017-10-07] MEDS: FUROSEMIDE 40 MG/4 ML VIAL IV SCH (06:04)
[2017-10-07] MEDS: SODIUM CHLOR 0.9% PF (SALINE LOCK) 10ML VIAL IV SCH ×3 (06:04→22:00)
[2017-10-07] MEDS: ALBUTEROL SULF 2.5 MG/0.5ML(0.5%) NEB SOLN NEB SCH ×4 (06:35→18:49)
[2017-10-07] MEDS: IPRATROPIUM BROM 0.5 MG/2.5ML INH SOL NEB SCH ×4 (06:35→18:49)
[2017-10-07] MEDS: CARVEDILOL 3.125 MG TAB NG SCH ×2 (09:15→22:00)
[2017-10-07] MEDS: PANTOPRAZOLE 40 MG/10 ML VIAL IV SCH (09:15)
[2017-10-07] MEDS: LEVOFLOXACIN 500MG 100 ML IV SCH (09:15)
[2017-10-07] MEDS: POTASSIUM CHL 10% (20 MEQ/15ML) 15ml ORAL SOLN PO SCH (09:16)
[2017-10-07] MEDS: CLOPIDOGREL BISULFATE 75 MG TAB PO SCH (09:16)
[2017-10-07] MEDS: AMIODARONE HCL 200 MG TAB NG SCH ×2 (09:16→22:00)
[2017-10-07] MEDS: BUDESONIDE (INHALATION) 0.5 MG/2 ML NEB NEB SCH ×2 (10:24→18:48)
[2017-10-07] MEDS ORDERED: POTASSIUM CHL 20 Meq TABLET PO ONE (10:30)
[2017-10-07] MEDS: LINEZOLID 600MG/300ML 300 ML IV SCH ×2 (11:38→23:22)
[2017-10-07] MEDS ORDERED: WARFARIN SODIUM 2.5 MG TAB PO ONE (17:00)
[2017-10-07] MEDS: ATORVASTATIN 20 MG TAB PO SCH (22:00)
[2017-10-08] VITALS (11 sets, daily range): BP systolic 106–145; BP diastolic 61–75
[2017-10-08] MEDS: ALBUTEROL SULF 2.5 MG/0.5ML(0.5%) NEB SOLN NEB PRN (02:24)
[2017-10-08] MEDS: ACETYLCYSTEINE 10 %(100MG/ML) SOL 4ML NEB SCH ×5 (02:24→19:57)
[2017-10-08 05:04] LABS: Hemoglobin 10.6 g/dL (13.5-17.5); Mean Corpuscular Volume 79.6 fL (80.0-100.0)
[2017-10-08 05:06] LABS: Hematocrit 32.2 % (41.0-53.0); Mean Corpuscular Hemoglobin 26.2 pg (28.0-32.0); Mean Corpuscular Hgb Conc. 32.9 g/dL (32.0-36.0); Mean Platelet Volume 8.9 fL (6.9-10.8); Platelet Count (auto) 106 10^3/uL (140-450); Red Cell Distribution Width 15.9 % (11.8-14.3); White Blood Cell 8.6 10^3/uL (4.4-10.8)
[2017-10-08 05:16] LABS: INR 1.1 (0.9-1.15)
[2017-10-08 05:30] LABS: BUN/Creatinine Ratio 34.1; Calcium 8.9 mg/dL (8.5-10.1); Potassium 3.6 mmol/L (3.5-5.1)
[2017-10-08 06:07] LABS: Promyelocytes % 0; Reactive Lymphocytes 0
[2017-10-08] MEDS: IPRATROPIUM BROM 0.5 MG/2.5ML INH SOL NEB SCH ×4 (06:30→19:56)
[2017-10-08] MEDS: ALBUTEROL SULF 2.5 MG/0.5ML(0.5%) NEB SOLN NEB SCH ×4 (06:30→19:57)
[2017-10-08] MEDS: SODIUM CHLOR 0.9% PF (SALINE LOCK) 10ML VIAL IV SCH ×3 (06:34→23:16)
[2017-10-08] MEDS: LEVOFLOXACIN 500MG 100 ML IV SCH (09:31)
[2017-10-08] MEDS: PANTOPRAZOLE 40 MG/10 ML VIAL IV SCH (09:31)
[2017-10-08] MEDS: FUROSEMIDE 20 MG TAB PO SCH (09:32)
[2017-10-08] MEDS: CLOPIDOGREL BISULFATE 75 MG TAB PO SCH (09:32)
[2017-10-08] MEDS: CARVEDILOL 3.125 MG TAB NG SCH ×2 (09:33→23:18)
[2017-10-08] MEDS: AMIODARONE HCL 200 MG TAB NG SCH ×2 (09:33→23:16)
[2017-10-08] MEDS: POTASSIUM CHL 10% (20 MEQ/15ML) 15ml ORAL SOLN PO SCH (09:34)
[2017-10-08 09:53] LABS: Metamyelocytes % 1; Myelocytes % 2
[2017-10-08 09:54] LABS: Platelet Estimate Decreased
[2017-10-08 09:56] LABS: Anisocytosis Slight; Microcytosis Slight
[2017-10-08] MEDS: BUDESONIDE (INHALATION) 0.5 MG/2 ML NEB NEB SCH ×2 (10:38→19:57)
[2017-10-08] MEDS: LINEZOLID 600MG/300ML 300 ML IV SCH ×2 (10:39→23:19)
[2017-10-08] MEDS: DOXYCYCLINE HYC 100MG/250ML 250 ML IV SCH (11:59)
[2017-10-08] MEDS ORDERED: WARFARIN SODIUM 10 MG TAB PO ONE (17:00)
[2017-10-08] MEDS: ATORVASTATIN 20 MG TAB PO SCH (23:18)
[2017-10-08] MEDS: HYDROcodone-ACET 5/325MG TAB PO PRN (23:35)
[2017-10-09] MEDS: DOXYCYCLINE HYC 100MG/250ML 250 ML IV SCH ×2 (01:17→11:07)
[2017-10-09] MEDS: HYDROcodone-ACET 5/325MG TAB PO PRN (04:24)
[2017-10-09 04:52] LABS: Mean Corpuscular Volume 79.2 fL (80.0-100.0); Red Cell Distribution Width 16.1 % (11.8-14.3)
[2017-10-09 04:54] LABS: Hematocrit 30.2 % (41.0-53.0); Mean Corpuscular Hemoglobin 26.3 pg (28.0-32.0); Mean Corpuscular Hgb Conc. 33.2 g/dL (32.0-36.0); Mean Platelet Volume 9.2 fL (6.9-10.8); Platelet Count (auto) 98 10^3/uL (140-450); White Blood Cell 7.3 10^3/uL (4.4-10.8)
[2017-10-09 04:56] VITALS: BP 112/59
[2017-10-09 04:59] LABS: Metamyelocytes % 0; Myelocytes % 0; Promyelocytes % 0; Reactive Lymphocytes 0
[2017-10-09 05:05] LABS: INR 1.31 (0.9-1.15); Prothrombin Time 14.3 sec (9.37-12.3)
[2017-10-09 05:11] LABS: BUN/Creatinine Ratio 31.3; Calcium 8.7 mg/dL (8.5-10.1); Magnesium 2.5 mg/dL (1.6-2.6); Potassium 3.6 mmol/L (3.5-5.1)
[2017-10-09 05:44] LABS: Anisocytosis Slight; Hypersegmented Neutrophils Present
[2017-10-09 05:45] LABS: Large Platelets FEW; Microcytosis Slight; Platelet Estimate Decrea
[2017-10-09] MEDS: ACETYLCYSTEINE 10 %(100MG/ML) SOL 4ML NEB SCH ×3 (06:33→11:04)
[2017-10-09] MEDS: ALBUTEROL SULF 2.5 MG/0.5ML(0.5%) NEB SOLN NEB SCH ×2 (06:33→11:04)
[2017-10-09] MEDS: IPRATROPIUM BROM 0.5 MG/2.5ML INH SOL NEB SCH ×2 (06:33→11:04)
[2017-10-09] MEDS: SODIUM CHLOR 0.9% PF (SALINE LOCK) 10ML VIAL IV SCH ×2 (06:41→13:52)
[2017-10-09 09:00] VITALS: BP_SYST 113; BP_SYST 137; BP_DIAS 62; BP_DIAS 81
[2017-10-09] MEDS: AMIODARONE HCL 200 MG TAB NG SCH (10:00)
[2017-10-09] MEDS: CARVEDILOL 3.125 MG TAB NG SCH (10:00)
[2017-10-09] MEDS: CLOPIDOGREL BISULFATE 75 MG TAB PO SCH (10:46)
[2017-10-09] MEDS: PANTOPRAZOLE 40 MG/10 ML VIAL IV SCH (10:46)
[2017-10-09] MEDS: FUROSEMIDE 20 MG TAB PO SCH (10:49)
[2017-10-09] MEDS: LINEZOLID 600MG/300ML 300 ML IV SCH (10:49)
[2017-10-09] MEDS: POTASSIUM CHL 10% (20 MEQ/15ML) 15ml ORAL SOLN PO SCH (10:49)
[2017-10-09] MEDS: BUDESONIDE (INHALATION) 0.5 MG/2 ML NEB NEB SCH (11:04)
[2017-10-09] MEDS ORDERED: DOXY-216 PO (12:33)
[2017-10-09] MEDS ORDERED: SACC250C PO (12:33)
[2017-10-09] MEDS ORDERED: CAR3125T NG (12:33)
[2017-10-09] MEDS ORDERED: FUR20T PO (12:33)
[2017-10-09] MEDS ORDERED: AMI200T NG (12:33)
[2017-10-09] MEDS ORDERED: ALBUAER3 IN (12:34)
[2017-10-09 13:00] VITALS: BP 125/71
[2017-10-09] MEDS ORDERED: WARFARIN SODIUM 10 MG TAB PO ONE ×2 (15:00→17:00)
[2017-10-09 16:39] VITALS: BP 125/71
[2017-10-09 17:00] VITALS: BP 113/67
== END 2017-10-09 18:10 | disposition home health service (06) | DRG 870 ==
LOC: EDBD 07:26 → ER 07:26 → TELE 07:27 → ICU WEST 20:32 → TELE-CENTR 10-07 23:45
PROVIDERS: ADMIT Internal Medicine; ATTEND Internal Medicine
PROC: 5A1955Z Respiratory Ventilation, Greater than 96 Consecutive Hours (ICD-10-PCS; principal; 2017-09-29)
PROC: 0BH17EZ Insertion of Endotracheal Airway into Trachea, Via Natural or Artificial Opening (ICD-10-PCS; 2017-09-29)
DX: A41.02 Sepsis due to Methicillin resistant Staphylococcus aureus (principal); I21.4 Non-ST elevation (NSTEMI) myocardial infarction; J96.21 Acute and chronic respiratory failure with hypoxia; N17.0 Acute kidney failure with tubular necrosis; I50.43 Acute on chronic combined systolic (congestive) and diastolic (congestive) heart failure; J15.212 Pneumonia due to Methicillin resistant Staphylococcus aureus; I13.0 Hypertensive heart and chronic kidney disease with heart failure and stage 1 through stage 4 chronic kidney disease, or unspecified chronic kidney disease; M48.02 Spinal stenosis, cervical region; R47.01 Aphasia; I82.411 Acute embolism and thrombosis of right femoral vein; J44.1 Chronic obstructive pulmonary disease with (acute) exacerbation; J44.0 Chronic obstructive pulmonary disease with (acute) lower respiratory infection; J98.11 Atelectasis; I82.431 Acute embolism and thrombosis of right popliteal vein; I27.20 Pulmonary hypertension, unspecified; N18.3 Chronic kidney disease, stage 3 (moderate); D64.9 Anemia, unspecified; E03.9 Hypothyroidism, unspecified; E66.9 Obesity, unspecified; E78.5 Hyperlipidemia, unspecified; G47.33 Obstructive sleep apnea (adult) (pediatric); I25.10 Atherosclerotic heart disease of native coronary artery without angina pectoris; I35.0 Nonrheumatic aortic (valve) stenosis; I48.0 Paroxysmal atrial fibrillation; K21.9 Gastro-esophageal reflux disease without esophagitis; K57.30 Diverticulosis of large intestine without perforation or abscess without bleeding; K76.89 Other specified diseases of liver; M43.12 Spondylolisthesis, cervical region; M47.812 Spondylosis without myelopathy or radiculopathy, cervical region; N40.0 Benign prostatic hyperplasia without lower urinary tract symptoms; I71.4 Abdominal aortic aneurysm, without rupture; K57.90 Diverticulosis of intestine, part unspecified, without perforation or abscess without bleeding; Z79.01 Long term (current) use of anticoagulants; Z68.33 Body mass index [BMI] 33.0-33.9, adult; Z79.02 Long term (current) use of antithrombotics/antiplatelets; Z80.7 Family history of other malignant neoplasms of lymphoid, hematopoietic and related tissues; Z81.8 Family history of other mental and behavioral disorders; Z82.0 Family history of epilepsy and other diseases of the nervous system; Z82.49 Family history of ischemic heart disease and other diseases of the circulatory system; Z83.3 Family history of diabetes mellitus; Z86.14 Personal history of Methicillin resistant Staphylococcus aureus infection; Z86.711 Personal history of pulmonary embolism; Z86.718 Personal history of other venous thrombosis and embolism; Z86.73 Personal history of transient ischemic attack (TIA), and cerebral infarction without residual deficits; I25.2 Old myocardial infarction; Z95.5 Presence of coronary angioplasty implant and graft; Z99.81 Dependence on supplemental oxygen
CPT/HCPCS: 31500; 36415; 36556; 36600; 51702; 70450; 71010; 71260; 72125; 74177; 80048; 80053; 80061; 80162; 80202; 81001; 82550; 82805; 82962; 83036; 83605; 83735; 83880; 84443; 84484; 85007; 85025; 85027; 85379; 85610; 85652; 85730; 86141; 87040; 87070; 87077; 87081; 87086; 87186; 87205; 87400; 92610; 93005; 93306; 93970; 94002; 94003; 94640; 96361; 96375; 97116; 97163; 97530; 99291; C9113; J0330; J0696; J1815; J1956; J2250; J2704; J3490; J7060

== ENCOUNTER 2017-10-20 14:33 | Inpatient (IN) | payer MEDICARE ==
[~2017-10-20] VITALS: Ht 165.1 cm; Wt 173.0 kg
[~2017-10-20 14:33] MED LIST changes: +ALBUAER3 IN; +AMI200T NG; +CAR3125T NG; -DIG0125T PO; +DOXY-216 PO; +FUR20T PO; -FURO20TA3 PO; -LEVO750T64 PO; -MET25T PO; +SACC250C PO; -SIMV40TA96 PO
[2017-10-20 15:17] LABS: Basophils # (auto) 0 uL; Eosinophils # (auto) 0.1 uL; Lymphocytes # (auto) 0.7 uL; Mean Corpuscular Hemoglobin 25.9 pg (28.0-32.0); Mean Corpuscular Volume 78.9 fL (80.0-100.0)
[2017-10-20 15:19] LABS: Basophils % (auto) 0.6 % (0.0-2.0); Eosinophils % (auto) 1.8 % (0.0-7.0); Hematocrit 28.4 % (41.0-53.0); Hemoglobin 9.3 g/dL (13.5-17.5); Mean Corpuscular Hgb Conc. 32.8 g/dL (32.0-36.0); Mean Platelet Volume 9.9 fL (6.9-10.8); Neutrophils # (auto) 2.4 uL; Neutrophils % (auto) 57.2 % (37.0-80.0); Nucleated Red Blood Cells % 0.7 %; Platelet Count (auto) 80 10^3/uL (140-450); Red Cell Distribution Width 16.5 % (11.8-14.3); White Blood Cell 4.1 10^3/uL (4.4-10.8)
[2017-10-20 15:23] LABS: Monocytes % (auto) 23.4 % (0.0-12.0)
[2017-10-20 15:39] LABS: Partial Thromboplastin Time 53.2 sec (22.64-33.71); Prothrombin Time 55.5 sec (9.37-12.3)
[2017-10-20 15:44] LABS: Albumin 2.9 g/dL (3.4-5.0); BUN/Creatinine Ratio 13.1; Bilirubin, Total 0.5 mg/dL (0.2-1.0); Calcium 8.2 mg/dL (8.5-10.1); Potassium 3.2 mmol/L (3.5-5.1)
[2017-10-20 16:13] LABS: INR 5.01 (0.9-1.15)
[2017-10-20] MEDS ORDERED: POTASSIUM CHLORIDE 8 MEQ TAB PO ONE (17:15)
[2017-10-20] MEDS ORDERED: DOCUSATE SOD 100 MG CAP PO PRN (17:15)
[2017-10-20] MEDS ORDERED: PHYTONADIONE (VIT K)10 MG/ML 1ML VIAL SUBCUT ONE (17:15)
[2017-10-20] MEDS ORDERED: MORPHINE SULF INJ 2 MG/ML SYRINGE 1ML IV PRN ×2 (17:15)
[2017-10-20] MEDS ORDERED: NITROGLYCERIN 0.4 MG SL TAB SL PRN (17:15)
[2017-10-20] MEDS ORDERED: ACETAMINOPHEN 325 MG TAB PO PRN (17:15)
[2017-10-20] MEDS ORDERED: LACTULOSE 20Gm/30ML SOLN PO PRN (17:30)
[2017-10-20] MEDS ORDERED: FUROSEMIDE 40 MG TAB PO ONE (17:30)
[2017-10-20] MEDS: BOOST PLUS 8 ounce PO SCH (18:04)
[2017-10-20 18:11] LABS: Urine Bilirubin Negative (Negative); Urine Blood Negative /uL (Negative); Urine Color Yellow (Yellow); Urine Glucose Normal (Normal); Urine Ketone Negative (Negative); Urine Nitrite Negative (Negative); Urine RBC <1 /hpf (0 - 3); Urine Urobilinogen Normal (Negative); Urine pH 6.5 (5.0-8.0)
[2017-10-20] MEDS: IPRATROPIUM BROM 0.5 MG/2.5ML INH SOL NEB SCH (18:30)
[2017-10-20] MEDS: ALBUTEROL SULF 2.5 MG/0.5ML(0.5%) NEB SOLN NEB SCH (18:30)
[2017-10-20 22:00] VITALS: BP 105/64
[2017-10-20] MEDS: SODIUM CHLOR 0.9% PF (SALINE LOCK) 10ML VIAL IV SCH (22:00)
[2017-10-20] MEDS: CARVEDILOL 3.125 MG TAB PO SCH (23:38)
[2017-10-20] MEDS: AMIODARONE HCL 200 MG TAB PO SCH (23:39)
[2017-10-20] MEDS: FAMOTIDINE 20 MG TAB PO SCH (23:39)
[2017-10-20] MEDS: SENNA 8.6 MG TAB PO SCH (23:39)
[2017-10-20] MEDS: ATORVASTATIN 20 MG TAB PO SCH (23:39)
[2017-10-20] MEDS: HYDROcodone-ACET 5/325MG TAB PO PRN (23:40)
[2017-10-21] VITALS (7 sets, daily range): BP systolic 98–114; BP diastolic 57–69
[2017-10-21] MEDS: IPRATROPIUM BROM 0.5 MG/2.5ML INH SOL NEB SCH ×5 (00:05→23:22)
[2017-10-21] MEDS: ALBUTEROL SULF 2.5 MG/0.5ML(0.5%) NEB SOLN NEB SCH ×5 (00:05→23:22)
[2017-10-21] MEDS: SENNA 8.6 MG TAB PO SCH ×3 (06:12→22:27)
[2017-10-21] MEDS: SODIUM CHLOR 0.9% PF (SALINE LOCK) 10ML VIAL IV SCH ×3 (06:13→22:21)
[2017-10-21 06:17] LABS: Hemoglobin 9.2 g/dL (13.5-17.5); White Blood Cell 3.8 10^3/uL (4.4-10.8)
[2017-10-21 06:19] LABS: Hematocrit 28.1 % (41.0-53.0); Mean Corpuscular Hemoglobin 25.7 pg (28.0-32.0); Mean Corpuscular Hgb Conc. 32.7 g/dL (32.0-36.0); Mean Corpuscular Volume 78.6 fL (80.0-100.0); Mean Platelet Volume 9.2 fL (6.9-10.8); Platelet Count (auto) 76 10^3/uL (140-450); Red Cell Distribution Width 16.7 % (11.8-14.3)
[2017-10-21 06:23] LABS: INR 3.82 (0.9-1.15); Prothrombin Time 42.2 sec (9.37-12.3)
[2017-10-21 06:37] LABS: Metamyelocytes % 0; Myelocytes % 0; Promyelocytes % 0; Reactive Lymphocytes 0
[2017-10-21 06:40] LABS: Potassium 3.4 mmol/L (3.5-5.1)
[2017-10-21 06:45] LABS: Albumin 2.9 g/dL (3.4-5.0); BUN/Creatinine Ratio 13.9; Bilirubin, Total 0.6 mg/dL (0.2-1.0); Calcium 8.5 mg/dL (8.5-10.1); Total Protein 5.8 g/dL (6.4-8.2)
[2017-10-21] MEDS: BOOST PLUS 8 ounce PO SCH ×3 (08:03→18:00)
[2017-10-21] MEDS: CARVEDILOL 3.125 MG TAB PO SCH ×2 (08:09→22:00)
[2017-10-21] MEDS: FUROSEMIDE 40 MG TAB PO SCH (08:09)
[2017-10-21] MEDS: AMIODARONE HCL 200 MG TAB PO SCH ×2 (08:10→22:27)
[2017-10-21] MEDS: PANTOPRAZOLE 40 MG TAB PO SCH (09:02)
[2017-10-21] MEDS: POTASSIUM CHL 20 Meq TABLET PO SCH (09:02)
[2017-10-21] MEDS: MULTIPLE VITAMIN TAB PO SCH (09:03)
[2017-10-21] MEDS: FLORASTOR (S. BOULARDII) 250 MG CAP PO SCH (09:03)
[2017-10-21] MEDS: CHOLECALCIFEROL (VITD3) 1,000 UNIT TAB PO SCH (09:03)
[2017-10-21] MEDS: FAMOTIDINE 20 MG TAB PO SCH ×2 (09:03→22:27)
[2017-10-21 13:44] LABS: Platelet Estimate Decreased
[2017-10-21 13:45] LABS: Hypochromia Slight; Microcytosis Slight; Stomatocytes Few
[2017-10-21 13:46] LABS: Tear Drop Cells FEW
[2017-10-21] MEDS: ONDANSETRON HCL 4 MG/2 ML VIAL IV PRN (15:40)
[2017-10-21] MEDS: ATORVASTATIN 20 MG TAB PO SCH (22:26)
[2017-10-21] MEDS: HYDROcodone-ACET 5/325MG TAB PO PRN (22:27)
[2017-10-22] MEDS: HYDROcodone-ACET 5/325MG TAB PO PRN ×2 (04:40→14:27)
[2017-10-22 05:34] VITALS: BP 112/70
[2017-10-22] MEDS: SODIUM CHLOR 0.9% PF (SALINE LOCK) 10ML VIAL IV SCH ×2 (06:06→14:00)
[2017-10-22] MEDS: SENNA 8.6 MG TAB PO SCH ×2 (06:06→14:00)
[2017-10-22] MEDS: ONDANSETRON HCL 4 MG/2 ML VIAL IV PRN (07:47)
[2017-10-22] MEDS: BOOST PLUS 8 ounce PO SCH ×2 (08:02→11:49)
[2017-10-22] MEDS: ALBUTEROL SULF 2.5 MG/0.5ML(0.5%) NEB SOLN NEB SCH ×2 (08:59→13:11)
[2017-10-22] MEDS: IPRATROPIUM BROM 0.5 MG/2.5ML INH SOL NEB SCH ×2 (08:59→13:11)
[2017-10-22 09:00] VITALS: BP 127/73
[2017-10-22] MEDS: FUROSEMIDE 40 MG TAB PO SCH (09:22)
[2017-10-22] MEDS: PANTOPRAZOLE 40 MG TAB PO SCH (09:23)
[2017-10-22] MEDS: POTASSIUM CHL 20 Meq TABLET PO SCH (09:23)
[2017-10-22] MEDS: FAMOTIDINE 20 MG TAB PO SCH (09:23)
[2017-10-22] MEDS: MULTIPLE VITAMIN TAB PO SCH (09:24)
[2017-10-22] MEDS: FLORASTOR (S. BOULARDII) 250 MG CAP PO SCH (09:24)
[2017-10-22] MEDS: CHOLECALCIFEROL (VITD3) 1,000 UNIT TAB PO SCH (09:24)
[2017-10-22] MEDS: AMIODARONE HCL 200 MG TAB PO SCH (09:27)
[2017-10-22] MEDS: CARVEDILOL 3.125 MG TAB PO SCH (09:27)
[2017-10-22 11:16] LABS: INR 1.35 (0.9-1.15); Prothrombin Time 14.8 sec (9.37-12.3)
[2017-10-22 13:00] VITALS: BP 115/60
[2017-10-22 15:59] VITALS: BP 115/60
== END 2017-10-22 17:53 | disposition home or self-care (01) | DRG 917 ==
LOC: EDBD 14:33 → ER 14:33 → TELE 14:34 → TELE-CENTR 20:17
PROVIDERS: ADMIT Internal Medicine; ATTEND Internal Medicine
DX: T45.511A Poisoning by anticoagulants, accidental (unintentional), initial encounter (principal); E43 Unspecified severe protein-calorie malnutrition; D68.69 Other thrombophilia; D69.6 Thrombocytopenia, unspecified; I48.91 Unspecified atrial fibrillation; I13.0 Hypertensive heart and chronic kidney disease with heart failure and stage 1 through stage 4 chronic kidney disease, or unspecified chronic kidney disease; E83.51 Hypocalcemia; E66.01 Morbid (severe) obesity due to excess calories; I50.9 Heart failure, unspecified; Z68.44 Body mass index [BMI] 60.0-69.9, adult; I48.92 Unspecified atrial flutter; D63.8 Anemia in other chronic diseases classified elsewhere; T45.515A Adverse effect of anticoagulants, initial encounter; J44.9 Chronic obstructive pulmonary disease, unspecified; I25.10 Atherosclerotic heart disease of native coronary artery without angina pectoris; E87.6 Hypokalemia; N18.2 Chronic kidney disease, stage 2 (mild); R04.0 Epistaxis; E78.5 Hyperlipidemia, unspecified; I25.2 Old myocardial infarction; Z82.49 Family history of ischemic heart disease and other diseases of the circulatory system; Z95.5 Presence of coronary angioplasty implant and graft; Z90.89 Acquired absence of other organs; Z86.73 Personal history of transient ischemic attack (TIA), and cerebral infarction without residual deficits
CPT/HCPCS: 36415; 80053; 81001; 85007; 85025; 85027; 85610; 85730; 87081; 87086; 87088; 87186; 94640; 94761; J2405; J3430

== ENCOUNTER 2017-11-14 03:50 | Inpatient (IN) | payer MEDICARE ==
[2017-11-14] VITALS (10 sets, daily range): BP systolic 85–128; BP diastolic 60–78
[~2017-11-14] VITALS: Ht 177.8 cm; Wt 100.1 kg
[2017-11-14] MEDS ORDERED: ETOMIDATE (2MG/ML) 20ML VIAL IV ONE ×2 (04:06→04:15)
[2017-11-14] MEDS ORDERED: SUCCINYLCHOLINE CHLORIDE 20 MG/ML 10ML VIAL IV ONE ×2 (04:06→04:15)
[2017-11-14 04:18] LABS: Eosinophils # (auto) 0.2 uL; Hemoglobin 11.9 g/dL (13.5-17.5); Lymphocytes # (auto) 1.2 uL
[2017-11-14 04:20] LABS: Basophils # (auto) 0 uL; Basophils % (auto) 0.6 % (0.0-2.0); Eosinophils % (auto) 2.4 % (0.0-7.0); Hematocrit 36.2 % (41.0-53.0); Lymphocytes % (auto) 16.8 % (10.0-50.0); Mean Corpuscular Hemoglobin 26.4 pg (28.0-32.0); Mean Corpuscular Hgb Conc. 32.9 g/dL (32.0-36.0); Mean Corpuscular Volume 80.2 fL (80.0-100.0); Monocytes # (auto) 1.2 uL; Monocytes % (auto) 16.5 % (0.0-12.0); Neutrophils # (auto) 4.6 uL; Neutrophils % (auto) 63.7 % (37.0-80.0); Nucleated Red Blood Cells % 0.1 %; Platelet Count (auto) 131 10^3/uL (140-450); Red Blood Cells 4.52 10^6/uL (4.5-5.90); White Blood Cell 7.3 10^3/uL (4.4-10.8)
[2017-11-14 04:35] LABS: Albumin 3.3 g/dL (3.4-5.0); BUN/Creatinine Ratio 9.1; Calcium 8.5 mg/dL (8.5-10.1); Magnesium 2.4 mg/dL (1.6-2.6); Potassium 4.1 mmol/L (3.5-5.1)
[2017-11-14 04:36] LABS: INR 1.77 (0.9-1.15); Prothrombin Time 19.4 sec (9.37-12.3)
[2017-11-14 04:40] LABS: Bilirubin, Total 0.3 mg/dL (0.2-1.0); Total Protein 7.2 g/dL (6.4-8.2)
[2017-11-14] MEDS ORDERED: MIDAZOLAM DRIP 50 mg/50mL 50 ML IV SCH (04:45)
[2017-11-14] MEDS ORDERED: MIDAZOLAM DRIP 50 mg/50mL 50 ML IV ONE (04:46)
[2017-11-14] MEDS ORDERED: FUROSEMIDE 20 MG/2 ML VIAL IV ONE (05:15)
[2017-11-14 05:31] LABS: Urine Bacteria NONE SEEN /hpf (None Seen); Urine Blood 1+ /uL (Negative); Urine Hyaline Cast MANY /lpf (0 - 2); Urine Mucus FEW (None Seen); Urine Specific Gravity 1.021 (1.001-1.035); Urine WBC 3 /hpf (0 - 3)
[2017-11-14] MEDS: PROPOFOL 100 ML IV SCH ×2 (05:59→19:30)
[2017-11-14] MEDS ORDERED: NITROGLYCERIN 0.4 MG SL TAB SL PRN (08:30)
[2017-11-14] MEDS ORDERED: MORPHINE SULFATE 4 MG/ML SYR/VIAL IV PRN ×2 (08:30)
[2017-11-14] MEDS ORDERED: MORPHINE SULF INJ 2 MG/ML SYRINGE 1ML IV PRN (08:30)
[2017-11-14] MEDS ORDERED: IODIXANOL 320MG/ML 100ML BTL IV ONE (09:35)
[2017-11-14] MEDS ORDERED: MIDAZOLAM DRIP 100 mg/100mL NS 100 ML IV ONE ×2 (09:44→14:01)
[2017-11-14] MEDS ORDERED: SODIUM CHLORIDE 0.9% 1,000 ML IV ONE ×2 (09:45→11:15)
[2017-11-14] MEDS: OSELTAMIVIR 75MG/5ML ORAL SUSP GT SCH ×2 (10:00→22:27)
[2017-11-14] MEDS: FUROSEMIDE 40 MG/4 ML VIAL IV SCH (10:00)
[2017-11-14] MEDS: PANTOPRAZOLE 40 MG/10 ML VIAL IV SCH (10:00)
[2017-11-14] MEDS ORDERED: NOREPINEPHRINE 8 MG/250ML KIT 250 ML IV ONE (10:34)
[2017-11-14] MEDS: LEVOFLOXACIN 500MG 100 ML IV SCH (11:00)
[2017-11-14] MEDS: NOREPINEPHRINE 8 MG/250ML KIT 250 ML IV SCH (11:00)
[2017-11-14] MEDS: MIDAZOLAM DRIP 100 mg/100mL NS 100 ML IV SCH ×2 (13:45→23:06)
[2017-11-14] MEDS: DOPamine 1600MCG/ML D5W 250 ML IV SCH (13:45)
[2017-11-14] MEDS ORDERED: WARFARIN SODIUM 5 MG TAB PO ONE ×2 (17:00)
[2017-11-14] MEDS: ALBUTEROL SULF 2.5 MG/0.5ML(0.5%) NEB SOLN NEB SCH (19:35)
[2017-11-14] MEDS: IPRATROPIUM BROM 0.5 MG/2.5ML INH SOL NEB SCH (19:35)
[2017-11-15] VITALS (12 sets, daily range): BP systolic 86–114; BP diastolic 62–74
[2017-11-15] MEDS: ALBUTEROL SULF 2.5 MG/0.5ML(0.5%) NEB SOLN NEB SCH ×4 (01:13→18:16)
[2017-11-15] MEDS: IPRATROPIUM BROM 0.5 MG/2.5ML INH SOL NEB SCH ×4 (01:13→18:16)
[2017-11-15] MEDS: DOPamine 1600MCG/ML D5W 250 ML IV SCH ×2 (02:13→16:29)
[2017-11-15] MEDS: MIDAZOLAM DRIP 100 mg/100mL NS 100 ML IV SCH (05:12)
[2017-11-15] MEDS: PROPOFOL 100 ML IV SCH (07:15)
[2017-11-15 07:55] LABS: Hemoglobin 9.8 g/dL (13.5-17.5)
[2017-11-15 07:59] LABS: Hematocrit 29.3 % (41.0-53.0); Mean Corpuscular Hemoglobin 26.4 pg (28.0-32.0); Mean Corpuscular Hgb Conc. 33.4 g/dL (32.0-36.0); Platelet Count (auto) 99 10^3/uL (140-450); Red Cell Distribution Width 18.2 % (11.8-14.3); White Blood Cell 6.3 10^3/uL (4.4-10.8)
[2017-11-15 08:10] LABS: INR 2.33 (0.9-1.15); Partial Thromboplastin Time 44.6 sec (22.64-33.71); Prothrombin Time 25.6 sec (9.37-12.3)
[2017-11-15 08:14] LABS: Band Neutrophils % (manual) 0; Basophils % (manual) 0 (0.0-2.0); Blast Cells 0; Metamyelocytes % 0; Myelocytes % 0; Promyelocytes % 0; Reactive Lymphocytes 0
[2017-11-15 08:24] LABS: Albumin 2.7 g/dL (3.4-5.0); BUN/Creatinine Ratio 9.2; Bilirubin, Total 0.9 mg/dL (0.2-1.0); Potassium 3.7 mmol/L (3.5-5.1); Total Protein 5.9 g/dL (6.4-8.2)
[2017-11-15] MEDS: LEVOFLOXACIN 500MG 100 ML IV SCH (10:04)
[2017-11-15] MEDS: FUROSEMIDE 40 MG/4 ML VIAL IV SCH (10:04)
[2017-11-15] MEDS: PANTOPRAZOLE 40 MG/10 ML VIAL IV SCH (10:04)
[2017-11-15] MEDS: NOREPINEPHRINE 8 MG/250ML KIT 250 ML IV SCH (11:00)
[2017-11-15] MEDS ORDERED: VANCOMYCIN PER PHARMACY 0 MG IV SCH (12:15)
[2017-11-15 12:32] LABS: Eosinophils % (manual) 3 (0-7); Lymphocytes % (manual) 13 (10.0-50.0); Monocytes % (manual) 18 (0-12)
[2017-11-15] MEDS: VANCOMYCIN 1GM/250ML 250 ML IV SCH (15:20)
[2017-11-15] MEDS ORDERED: ACETAMINOPHEN 650 mg PER 20 mL UD GT ONE (16:00)
[2017-11-15] MEDS ORDERED: WARFARIN SODIUM 2 MG TAB PO ONE (17:00)
[2017-11-16] VITALS (12 sets, daily range): BP systolic 101–124; BP diastolic 54–75
[2017-11-16] MEDS: ALBUTEROL SULF 2.5 MG/0.5ML(0.5%) NEB SOLN NEB SCH ×4 (00:17→18:19)
[2017-11-16] MEDS: IPRATROPIUM BROM 0.5 MG/2.5ML INH SOL NEB SCH ×4 (00:17→18:19)
[2017-11-16] MEDS: VANCOMYCIN 1GM/250ML 250 ML IV SCH ×2 (03:00→15:00)
[2017-11-16] MEDS: PROPOFOL 100 ML IV SCH (05:15)
[2017-11-16] MEDS: DOPamine 1600MCG/ML D5W 250 ML IV SCH ×2 (05:16→19:18)
[2017-11-16 06:23] LABS: Hemoglobin 10.3 g/dL (13.5-17.5); Platelet Count (auto) 99 10^3/uL (140-450)
[2017-11-16 06:26] LABS: Hematocrit 30.8 % (41.0-53.0); Mean Corpuscular Hemoglobin 26.4 pg (28.0-32.0); Mean Corpuscular Hgb Conc. 33.3 g/dL (32.0-36.0); Mean Corpuscular Volume 79.2 fL (80.0-100.0); Red Blood Cells 3.89 10^6/uL (4.5-5.90); Red Cell Distribution Width 18.6 % (11.8-14.3); White Blood Cell 6.4 10^3/uL (4.4-10.8)
[2017-11-16 06:39] LABS: INR 2.1 (0.9-1.15); Partial Thromboplastin Time 48.1 sec (22.64-33.71); Prothrombin Time 23.1 sec (9.37-12.3)
[2017-11-16 06:41] LABS: Potassium 3.3 mmol/L (3.5-5.1)
[2017-11-16 06:46] LABS: Albumin 2.7 g/dL (3.4-5.0); BUN/Creatinine Ratio 11.7; Calcium 8.3 mg/dL (8.5-10.1)
[2017-11-16 06:53] LABS: Band Neutrophils % (manual) 0; Basophils % (manual) 0 (0.0-2.0); Blast Cells 0; Eosinophils % (manual) 0 (0-7); Metamyelocytes % 0; Myelocytes % 0; Promyelocytes % 0; Reactive Lymphocytes 0
[2017-11-16 06:58] LABS: Bilirubin, Total 0.7 mg/dL (0.2-1.0); Total Protein 6.2 g/dL (6.4-8.2)
[2017-11-16 07:03] LABS: Lymphocytes % (manual) 4 (10.0-50.0); Monocytes % (manual) 19 (0-12)
[2017-11-16] MEDS ORDERED: SODIUM CHLORIDE 0.9% 1,000 ML IV ONE (09:30)
[2017-11-16] MEDS ORDERED: AMIODARONE HCL 150 MG in D5W 5% 100 ML IV ONE (09:30)
[2017-11-16] MEDS ORDERED: AMIODARONE HCL 900 MG in DEXTROSE 500 ML IV SCH (09:45)
[2017-11-16] MEDS: FUROSEMIDE 40 MG/4 ML VIAL IV SCH (09:55)
[2017-11-16] MEDS: LEVOFLOXACIN 500MG 100 ML IV SCH (10:00)
[2017-11-16] MEDS: PANTOPRAZOLE 40 MG/10 ML VIAL IV SCH (10:00)
[2017-11-16] MEDS: NOREPINEPHRINE 8 MG/250ML KIT 250 ML IV SCH (10:58)
[2017-11-16] MEDS ORDERED: DIGOXIN (250MCG/ML) 2 ML AMPULE IV ONE ×3 (12:00→14:00)
[2017-11-16] MEDS ORDERED: POTASSIUM CHL 20MEQ/50ML 50 ML IV ONE (12:30)
[2017-11-16] MEDS: MIDAZOLAM DRIP 100 mg/100mL NS 100 ML IV SCH (13:34)
[2017-11-16] MEDS: AMIODARONE HCL 900 MG in DEXTROSE 500 ML IV SCH (16:45)
[2017-11-16] MEDS ORDERED: WARFARIN SODIUM 5 MG TAB PO ONE (17:00)
[2017-11-17] VITALS (13 sets, daily range): BP systolic 90–138; BP diastolic 51–77
[2017-11-17] MEDS: IPRATROPIUM BROM 0.5 MG/2.5ML INH SOL NEB SCH ×4 (00:16→18:41)
[2017-11-17] MEDS: ALBUTEROL SULF 2.5 MG/0.5ML(0.5%) NEB SOLN NEB SCH ×4 (00:16→18:41)
[2017-11-17 02:27] LABS: White Blood Cell 4.4 10^3/uL (4.4-10.8)
[2017-11-17 02:29] LABS: Hemoglobin 8.4 g/dL (13.5-17.5); Mean Corpuscular Hgb Conc. 32.4 g/dL (32.0-36.0); Mean Corpuscular Volume 80.1 fL (80.0-100.0); Platelet Count (auto) 74 10^3/uL (140-450); Red Blood Cells 3.25 10^6/uL (4.5-5.90); Red Cell Distribution Width 19.2 % (11.8-14.3)
[2017-11-17 02:37] LABS: Basophils % (manual) 0 (0.0-2.0); Blast Cells 0; Metamyelocytes % 0; Myelocytes % 0; Promyelocytes % 0; Reactive Lymphocytes 0
[2017-11-17 02:40] LABS: INR 2.69 (0.9-1.15); Partial Thromboplastin Time 52.5 sec (22.64-33.71); Prothrombin Time 29.6 sec (9.37-12.3)
[2017-11-17 02:44] LABS: BUN/Creatinine Ratio 11.7; Calcium 7.8 mg/dL (8.5-10.1); Potassium 3.5 mmol/L (3.5-5.1)
[2017-11-17] MEDS: VANCOMYCIN 1GM/250ML 250 ML IV SCH ×2 (03:00→15:20)
[2017-11-17 03:06] LABS: Band Neutrophils % (manual) 3; Eosinophils % (manual) 2 (0-7); Lymphocytes % (manual) 14 (10.0-50.0); Monocytes % (manual) 25 (0-12)
[2017-11-17] MEDS: DOPamine 1600MCG/ML D5W 250 ML IV SCH ×2 (08:35→21:57)
[2017-11-17] MEDS: LEVOFLOXACIN 500MG 100 ML IV SCH (10:00)
[2017-11-17] MEDS: FUROSEMIDE 40 MG/4 ML VIAL IV SCH (10:00)
[2017-11-17] MEDS: NOREPINEPHRINE 8 MG/250ML KIT 250 ML IV SCH (10:00)
[2017-11-17] MEDS: PANTOPRAZOLE 40 MG/10 ML VIAL IV SCH (10:00)
[2017-11-17] MEDS: AMIODARONE HCL 900 MG in DEXTROSE 500 ML IV SCH (11:09)
[2017-11-17] MEDS: MIDAZOLAM DRIP 100 mg/100mL NS 100 ML IV SCH (13:53)
[2017-11-17] MEDS ORDERED: WARFARIN SODIUM 2.5 MG TAB PO ONE (17:00)
[2017-11-17] MEDS: ACETAMINOPHEN 650 mg PER 20 mL UD GT PRN (21:27)
[2017-11-18] VITALS (12 sets, daily range): BP systolic 96–133; BP diastolic 54–73
[2017-11-18] MEDS: ACETAMINOPHEN 650 mg PER 20 mL UD GT PRN (00:11)
[2017-11-18] MEDS: ALBUTEROL SULF 2.5 MG/0.5ML(0.5%) NEB SOLN NEB SCH ×4 (00:33→18:00)
[2017-11-18] MEDS: IPRATROPIUM BROM 0.5 MG/2.5ML INH SOL NEB SCH ×4 (00:33→18:00)
[2017-11-18] MEDS: VANCOMYCIN 1GM/250ML 250 ML IV SCH ×2 (04:22→15:10)
[2017-11-18 05:07] LABS: Hemoglobin 8.8 g/dL (13.5-17.5); White Blood Cell 4.7 10^3/uL (4.4-10.8)
[2017-11-18 05:09] LABS: Hematocrit 26.8 % (41.0-53.0); Mean Corpuscular Volume 78.7 fL (80.0-100.0); Platelet Count (auto) 81 10^3/uL (140-450); Red Cell Distribution Width 18.7 % (11.8-14.3)
[2017-11-18 05:12] LABS: Band Neutrophils % (manual) 0; Basophils % (manual) 0 (0.0-2.0); Metamyelocytes % 0; Myelocytes % 0
[2017-11-18 05:13] LABS: Blast Cells 0; Promyelocytes % 0; Reactive Lymphocytes 0
[2017-11-18 05:29] LABS: INR 3.21 (0.9-1.15); Partial Thromboplastin Time 56.3 sec (22.64-33.71); Prothrombin Time 35.4 sec (9.37-12.3)
[2017-11-18 05:31] LABS: Albumin 2.4 g/dL (3.4-5.0); BUN/Creatinine Ratio 13.3; Calcium 8.2 mg/dL (8.5-10.1); Potassium 3.1 mmol/L (3.5-5.1)
[2017-11-18 05:33] LABS: Bilirubin, Total 0.6 mg/dL (0.2-1.0); Total Protein 5.8 g/dL (6.4-8.2)
[2017-11-18 08:00] LABS: Eosinophils % (manual) 2 (0-7); Lymphocytes % (manual) 18 (10.0-50.0); Monocytes % (manual) 15 (0-12)
[2017-11-18] MEDS: FUROSEMIDE 40 MG/4 ML VIAL IV SCH (10:45)
[2017-11-18] MEDS: PANTOPRAZOLE 40 MG/10 ML VIAL IV SCH (10:45)
[2017-11-18] MEDS: LEVOFLOXACIN 500MG 100 ML IV SCH (10:49)
[2017-11-18] MEDS: NOREPINEPHRINE 8 MG/250ML KIT 250 ML IV SCH (11:00)
[2017-11-18] MEDS: DOPamine 1600MCG/ML D5W 250 ML IV SCH (11:19)
[2017-11-18] MEDS ORDERED: POTASSIUM CHLORIDE 40 MEQ, LIDOCAINE 1% (LOCAL ANESTH.) 4 ML in SODIUM CHL 0.9% 100 ML IV ONE (11:30)
[2017-11-18] MEDS: MIDAZOLAM DRIP 100 mg/100mL NS 100 ML IV SCH (13:49)
[2017-11-18] MEDS: AMIODARONE HCL 900 MG in DEXTROSE 500 ML IV SCH (17:22)
[2017-11-18] MEDS: PIPERACILLIN-TAZOB 3.375GM 50 ML IV SCH (18:16)
[2017-11-18] MEDS: POTASSIUM CHL 10% (20 MEQ/15ML) 15ml ORAL SOLN GT SCH (21:38)
[2017-11-19] VITALS (12 sets, daily range): BP systolic 69–134; BP diastolic 60–73
[2017-11-19] MEDS: IPRATROPIUM BROM 0.5 MG/2.5ML INH SOL NEB SCH ×4 (00:14→18:40)
[2017-11-19] MEDS: ALBUTEROL SULF 2.5 MG/0.5ML(0.5%) NEB SOLN NEB SCH ×4 (00:14→18:40)
[2017-11-19] MEDS: PIPERACILLIN-TAZOB 3.375GM 50 ML IV SCH ×4 (00:28→20:04)
[2017-11-19] MEDS: DOPamine 1600MCG/ML D5W 250 ML IV SCH ×2 (01:16→19:41)
[2017-11-19] MEDS ORDERED: VANCOMYCIN 1GM/250ML 250 ML IV SCH (03:00)
[2017-11-19] MEDS: VANCOMYCIN 1GM/250ML 250 ML IV SCH ×2 (03:18→16:00)
[2017-11-19 07:29] LABS: Hemoglobin 8.7 g/dL (13.5-17.5); White Blood Cell 5.7 10^3/uL (4.4-10.8)
[2017-11-19 07:31] LABS: Hematocrit 26.1 % (41.0-53.0); Mean Corpuscular Hemoglobin 26.4 pg (28.0-32.0); Mean Corpuscular Hgb Conc. 33.2 g/dL (32.0-36.0); Mean Corpuscular Volume 79.4 fL (80.0-100.0); Platelet Count (auto) 91 10^3/uL (140-450); Red Blood Cells 3.29 10^6/uL (4.5-5.90); Red Cell Distribution Width 19.1 % (11.8-14.3)
[2017-11-19 07:59] LABS: Band Neutrophils % (manual) 0; Basophils % (manual) 0 (0.0-2.0); Blast Cells 0; Metamyelocytes % 0; Monocytes % (manual) 0 (0-12); Myelocytes % 0; Promyelocytes % 0; Reactive Lymphocytes 0
[2017-11-19 08:01] LABS: INR 3.26 (0.9-1.15); Partial Thromboplastin Time 58.8 sec (22.64-33.71)
[2017-11-19 08:05] LABS: Potassium 3.6 mmol/L (3.5-5.1)
[2017-11-19 08:06] LABS: BUN/Creatinine Ratio 15.2; Bilirubin, Total 0.7 mg/dL (0.2-1.0); Calcium 8.1 mg/dL (8.5-10.1); Total Protein 5.9 g/dL (6.4-8.2)
[2017-11-19 08:07] LABS: Albumin 2.4 g/dL (3.4-5.0)
[2017-11-19] MEDS ORDERED: TPN PER PHARMACY 0 ML IV SCH (09:30)
[2017-11-19 10:17] LABS: Magnesium 2.3 mg/dL (1.6-2.6); Phosphorus 3.5 mg/dL (2.5-4.90); Pre Albumin 16.4 mg/dL (20.0-40.0)
[2017-11-19] MEDS: PANTOPRAZOLE 40 MG/10 ML VIAL IV SCH (10:18)
[2017-11-19] MEDS: FUROSEMIDE 40 MG/4 ML VIAL IV SCH (10:18)
[2017-11-19] MEDS: LEVOFLOXACIN 500MG 100 ML IV SCH (10:30)
[2017-11-19] MEDS: POTASSIUM CHL 10% (20 MEQ/15ML) 15ml ORAL SOLN GT SCH ×2 (10:30→21:52)
[2017-11-19 15:19] LABS: Eosinophils % (manual) 4 (0-7); Lymphocytes % (manual) 19 (10.0-50.0)
[2017-11-19] MEDS ORDERED: DEXTROSE (50%) 50ML SYRG IV SCH (18:00)
[2017-11-19] MEDS: ACCU-CHEK COMFORT CURVE STRIP VI SCH (18:30)
[2017-11-19] MEDS: InsuLIN REG 1unit/0.01ml Soln (100units/ml) SC SCH (18:54)
[2017-11-19] MEDS: NOREPINEPHRINE 8 MG/250ML KIT 250 ML IV SCH (19:40)
[2017-11-19] MEDS ORDERED: TPN PER PHARMACY IV NR ×11 (20:00)
[2017-11-19] MEDS: MIDAZOLAM DRIP 100 mg/100mL NS 100 ML IV SCH (20:04)
[2017-11-19] MEDS: AMIODARONE HCL 900 MG in DEXTROSE 500 ML IV SCH (22:09)
[2017-11-20] VITALS (13 sets, daily range): BP systolic 120–147; BP diastolic 53–83
[2017-11-20] MEDS: ALBUTEROL SULF 2.5 MG/0.5ML(0.5%) NEB SOLN NEB SCH ×4 (00:26→18:24)
[2017-11-20] MEDS: IPRATROPIUM BROM 0.5 MG/2.5ML INH SOL NEB SCH ×4 (00:26→18:24)
[2017-11-20] MEDS: ACCU-CHEK COMFORT CURVE STRIP VI SCH ×4 (01:04→17:29)
[2017-11-20] MEDS: PIPERACILLIN-TAZOB 3.375GM 50 ML IV SCH ×4 (01:04→17:32)
[2017-11-20] MEDS: InsuLIN REG 1unit/0.01ml Soln (100units/ml) SC SCH ×4 (01:08→17:29)
[2017-11-20] MEDS: VANCOMYCIN 1GM/250ML 250 ML IV SCH ×2 (02:34→14:28)
[2017-11-20] MEDS: DOPamine 1600MCG/ML D5W 250 ML IV SCH (03:25)
[2017-11-20 07:01] LABS: Hematocrit 25.5 % (41.0-53.0); Hemoglobin 8.4 g/dL (13.5-17.5); Mean Corpuscular Hemoglobin 26.4 pg (28.0-32.0); Mean Corpuscular Hgb Conc. 32.7 g/dL (32.0-36.0); Mean Corpuscular Volume 80.6 fL (80.0-100.0); Platelet Count (auto) 99 10^3/uL (140-450); Red Blood Cells 3.17 10^6/uL (4.5-5.90); Red Cell Distribution Width 18.7 % (11.8-14.3); White Blood Cell 4.8 10^3/uL (4.4-10.8)
[2017-11-20 07:03] LABS: Basophils % (manual) 0 (0.0-2.0); Blast Cells 0; Metamyelocytes % 0; Myelocytes % 0; Promyelocytes % 0; Reactive Lymphocytes 0
[2017-11-20 07:09] LABS: Albumin 2.3 g/dL (3.4-5.0); Calcium 8.4 mg/dL (8.5-10.1); Potassium 3.7 mmol/L (3.5-5.1)
[2017-11-20 07:11] LABS: BUN/Creatinine Ratio 16.9
[2017-11-20 07:13] LABS: Bilirubin, Total 0.6 mg/dL (0.2-1.0); Total Protein 5.9 g/dL (6.4-8.2)
[2017-11-20 07:27] LABS: INR 2.47 (0.9-1.15); Partial Thromboplastin Time 49.7 sec (22.64-33.71); Prothrombin Time 27.2 sec (9.37-12.3)
[2017-11-20 07:29] LABS: Magnesium 2.4 mg/dL (1.6-2.6); Phosphorus 2.7 mg/dL (2.5-4.90)
[2017-11-20] MEDS: POTASSIUM CHL 10% (20 MEQ/15ML) 15ml ORAL SOLN GT SCH (09:49)
[2017-11-20] MEDS: PANTOPRAZOLE 40 MG/10 ML VIAL IV SCH (09:49)
[2017-11-20] MEDS: LEVOFLOXACIN 500MG 100 ML IV SCH (09:49)
[2017-11-20] MEDS: FUROSEMIDE 40 MG/4 ML VIAL IV SCH (09:49)
[2017-11-20 11:08] LABS: Band Neutrophils % (manual) 2; Eosinophils % (manual) 2 (0-7); Lymphocytes % (manual) 8 (10.0-50.0); Monocytes % (manual) 19 (0-12)
[2017-11-20 14:36] LABS: BUN/Creatinine Ratio 16.8; Calcium 8.4 mg/dL (8.5-10.1); Potassium 3.7 mmol/L (3.5-5.1)
[2017-11-20] MEDS ORDERED: WARFARIN SODIUM 2.5 MG TAB PO ONE (17:00)
[2017-11-20] MEDS ORDERED: TPN PER PHARMACY IV NR ×12 (20:00)
[2017-11-20] MEDS ORDERED: LORazepam 2MG/ML-1ML VIAL IV PRN (20:00)
[2017-11-20] MEDS ORDERED: MORPHINE SULF INJ 2 MG/ML SYRINGE 1ML ONE (21:46)
[2017-11-20] MEDS ORDERED: MORPHINE SULF INJ 2 MG/ML SYRINGE 1ML IV ONE (23:15)
[2017-11-21] VITALS (58 sets, daily range): BP systolic 101–172; BP diastolic 47–88
[2017-11-21] MEDS: AMIODARONE HCL 900 MG in DEXTROSE 500 ML IV SCH ×2 (00:09→09:00)
[2017-11-21] MEDS: ACCU-CHEK COMFORT CURVE STRIP VI SCH ×4 (00:20→17:53)
[2017-11-21] MEDS: PIPERACILLIN-TAZOB 3.375GM 50 ML IV SCH ×2 (00:20→06:00)
[2017-11-21] MEDS: InsuLIN REG 1unit/0.01ml Soln (100units/ml) SC SCH ×4 (00:24→17:54)
[2017-11-21] MEDS: ALBUTEROL SULF 2.5 MG/0.5ML(0.5%) NEB SOLN NEB SCH ×4 (00:25→18:26)
[2017-11-21] MEDS: IPRATROPIUM BROM 0.5 MG/2.5ML INH SOL NEB SCH ×4 (00:25→18:26)
[2017-11-21] MEDS: POTASSIUM CHL 10% (20 MEQ/15ML) 15ml ORAL SOLN GT SCH ×3 (00:35→22:00)
[2017-11-21 02:44] LABS: Hematocrit 25.6 % (41.0-53.0); Hemoglobin 8.3 g/dL (13.5-17.5); Mean Corpuscular Hemoglobin 26.1 pg (28.0-32.0); Mean Corpuscular Hgb Conc. 32.6 g/dL (32.0-36.0); Mean Corpuscular Volume 80.1 fL (80.0-100.0); Platelet Count (auto) 104 10^3/uL (140-450); Red Blood Cells 3.19 10^6/uL (4.5-5.90)
[2017-11-21 02:53] LABS: INR 1.31 (0.9-1.15); Partial Thromboplastin Time 37.8 sec (22.64-33.71); Prothrombin Time 14.3 sec (9.37-12.3)
[2017-11-21 02:58] LABS: Blast Cells 0; Metamyelocytes % 0; Myelocytes % 0; Promyelocytes % 0; Reactive Lymphocytes 0
[2017-11-21] MEDS: VANCOMYCIN 1GM/250ML 250 ML IV SCH (03:00)
[2017-11-21 03:09] LABS: Albumin 2.3 g/dL (3.4-5.0); BUN/Creatinine Ratio 15.5; Bilirubin, Total 0.7 mg/dL (0.2-1.0); Magnesium 2.4 mg/dL (1.6-2.6); Phosphorus 2.2 mg/dL (2.5-4.90); Pre Albumin 16.5 mg/dL (20.0-40.0); Total Protein 5.8 g/dL (6.4-8.2)
[2017-11-21 04:59] LABS: Band Neutrophils % (manual) 3; Basophils % (manual) 1 (0.0-2.0); Eosinophils % (manual) 1 (0-7); Lymphocytes % (manual) 14 (10.0-50.0); Monocytes % (manual) 19 (0-12)
[2017-11-21] MEDS ORDERED: POTASSIUM CHL 20 Meq TABLET PO ONE (07:30)
[2017-11-21] MEDS ORDERED: POTASSIUM PHOSP 22MEQ(15MMOLE) in NS 100 ML IV ONE (09:00)
[2017-11-21] MEDS: PANTOPRAZOLE 40 MG/10 ML VIAL IV SCH (09:53)
[2017-11-21] MEDS: LEVOFLOXACIN 500MG 100 ML IV SCH (09:54)
[2017-11-21] MEDS: FUROSEMIDE 40 MG/4 ML VIAL IV SCH (09:54)
[2017-11-21] MEDS ORDERED: POTASSIUM CHL 10% (20 MEQ/15ML) 15ml ORAL SOLN GT ONE (10:00)
[2017-11-21] MEDS ORDERED: MORPHINE SULFATE 4 MG/ML SYR/VIAL IV PRN (10:45)
[2017-11-21] MEDS ORDERED: MORPHINE SULF INJ 2 MG/ML SYRINGE 1ML IV PRN (10:45)
[2017-11-21] MEDS ORDERED: MORPHINE SULFATE 10 MG/ML INJ 1ML SDV IV PRN (11:00)
[2017-11-21] MEDS ORDERED: LORazepam 2MG/ML-1ML VIAL IV ONE (11:15)
[2017-11-21] MEDS ORDERED: WARFARIN SODIUM 5 MG TAB PO ONE (17:00)
[2017-11-21] MEDS: LORazepam 2MG/ML-1ML VIAL IV PRN ×2 (17:20→21:49)
[2017-11-21] MEDS ORDERED: POTASSIUM CHLORIDE IV NR ×11 (20:00)
[2017-11-21] MEDS ORDERED: FAT EMULSION IV NR ×11 (20:00)
[2017-11-21] MEDS ORDERED: [UNRECOGNIZED DRUG - OTHER] IV NR ×11 (20:00)
[2017-11-21] MEDS ORDERED: SODIUM CHLORIDE IV NR ×11 (20:00)
[2017-11-21] MEDS: MORPHINE SULFATE 10 MG/ML INJ 1ML SDV IV PRN (21:14)
[2017-11-22] VITALS (82 sets, daily range): BP systolic 111–180; BP diastolic 9–94
[2017-11-22] MEDS: IPRATROPIUM BROM 0.5 MG/2.5ML INH SOL NEB SCH ×4 (00:19→18:51)
[2017-11-22] MEDS: ALBUTEROL SULF 2.5 MG/0.5ML(0.5%) NEB SOLN NEB SCH ×4 (00:19→18:51)
[2017-11-22 05:53] LABS: Albumin 2.3 g/dL (3.4-5.0); BUN/Creatinine Ratio 16.7; Bilirubin, Total 0.7 mg/dL (0.2-1.0); Calcium 8.2 mg/dL (8.5-10.1); INR 1.22 (0.9-1.15); Magnesium 2.4 mg/dL (1.6-2.6); Partial Thromboplastin Time 38.3 sec (22.64-33.71); Phosphorus 3.4 mg/dL (2.5-4.90); Potassium 3.8 mmol/L (3.5-5.1); Prothrombin Time 13.3 sec (9.37-12.3)
[2017-11-22] MEDS: ACCU-CHEK COMFORT CURVE STRIP VI SCH ×4 (05:55→18:00)
[2017-11-22] MEDS: InsuLIN REG 1unit/0.01ml Soln (100units/ml) SC SCH ×4 (06:00→18:00)
[2017-11-22] MEDS: MORPHINE SULFATE 10 MG/ML INJ 1ML SDV IV PRN ×2 (08:44→19:48)
[2017-11-22] MEDS: FUROSEMIDE 40 MG/4 ML VIAL IV SCH (09:56)
[2017-11-22] MEDS: LEVOFLOXACIN 500MG 100 ML IV SCH (09:57)
[2017-11-22] MEDS: PANTOPRAZOLE 40 MG/10 ML VIAL IV SCH (09:57)
[2017-11-22] MEDS: POTASSIUM CHL 10% (20 MEQ/15ML) 15ml ORAL SOLN GT SCH ×2 (09:57→22:13)
[2017-11-22] MEDS: AMIODARONE HCL 900 MG in DEXTROSE 500 ML IV SCH (16:00)
[2017-11-22] MEDS ORDERED: WARFARIN SODIUM 5 MG TAB PO ONE (17:00)
[2017-11-22] MEDS ORDERED: TPN PER PHARMACY IV NR ×10 (20:00)
[2017-11-23] VITALS (37 sets, daily range): BP systolic 100–150; BP diastolic 45–92
[2017-11-23] MEDS: IPRATROPIUM BROM 0.5 MG/2.5ML INH SOL NEB SCH ×4 (00:45→18:53)
[2017-11-23] MEDS: ALBUTEROL SULF 2.5 MG/0.5ML(0.5%) NEB SOLN NEB SCH ×4 (00:45→18:53)
[2017-11-23] MEDS: PROMETHAZINE HCL 25 MG/ML 1ML IV PRN (01:40)
[2017-11-23 04:48] LABS: INR 1.12 (0.9-1.15); Partial Thromboplastin Time 35.7 sec (22.64-33.71); Prothrombin Time 12.2 sec (9.37-12.3)
[2017-11-23 05:30] LABS: Albumin 2.5 g/dL (3.4-5.0); BUN/Creatinine Ratio 22.5; Calcium 8.7 mg/dL (8.5-10.1); Magnesium 2.2 mg/dL (1.6-2.6); Phosphorus 3.1 mg/dL (2.5-4.90); Total Protein 6.4 g/dL (6.4-8.2)
[2017-11-23] MEDS: ACCU-CHEK COMFORT CURVE STRIP VI SCH ×4 (06:13→18:35)
[2017-11-23] MEDS: InsuLIN REG 1unit/0.01ml Soln (100units/ml) SC SCH ×4 (06:13→18:00)
[2017-11-23] MEDS: HYDROcodone-ACET 5/325MG TAB PO PRN ×2 (08:07→13:35)
[2017-11-23] MEDS: PANTOPRAZOLE 40 MG/10 ML VIAL IV SCH (09:39)
[2017-11-23] MEDS: LEVOFLOXACIN 500MG 100 ML IV SCH (09:39)
[2017-11-23] MEDS: POTASSIUM CHL 10% (20 MEQ/15ML) 15ml ORAL SOLN GT SCH ×2 (09:39→22:26)
[2017-11-23] MEDS: FUROSEMIDE 40 MG/4 ML VIAL IV SCH (09:39)
[2017-11-23] MEDS: LACTULOSE 20Gm/30ML SOLN PO PRN (16:55)
[2017-11-23] MEDS ORDERED: WARFARIN SODIUM 2 MG TAB PO ONE (17:00)
[2017-11-23] MEDS: KETOROLAC TROMETH 30 MG/ML 1ML VIAL IV SCH (18:40)
[2017-11-23 18:49] LABS: Phosphorus 3.3 mg/dL (2.5-4.90)
[2017-11-23] MEDS ORDERED: TPN PER PHARMACY IV NR ×10 (20:00)
[2017-11-24] MEDS: KETOROLAC TROMETH 30 MG/ML 1ML VIAL IV SCH ×4 (00:09→17:56)
[2017-11-24] MEDS: ACCU-CHEK COMFORT CURVE STRIP VI SCH ×4 (00:09→18:23)
[2017-11-24] MEDS: IPRATROPIUM BROM 0.5 MG/2.5ML INH SOL NEB SCH ×4 (00:22→19:46)
[2017-11-24] MEDS: ALBUTEROL SULF 2.5 MG/0.5ML(0.5%) NEB SOLN NEB SCH ×4 (00:22→19:46)
[2017-11-24 05:14] VITALS: BP 110/58
[2017-11-24] MEDS: InsuLIN REG 1unit/0.01ml Soln (100units/ml) SC SCH ×4 (06:00→18:00)
[2017-11-24 06:15] LABS: Hematocrit 29.9 % (41.0-53.0); Hemoglobin 9.7 g/dL (13.5-17.5); Mean Corpuscular Hemoglobin 25.9 pg (28.0-32.0); Mean Corpuscular Hgb Conc. 32.6 g/dL (32.0-36.0); Mean Corpuscular Volume 79.4 fL (80.0-100.0); Platelet Count (auto) 135 10^3/uL (140-450); Red Blood Cells 3.77 10^6/uL (4.5-5.90); Red Cell Distribution Width 18.7 % (11.8-14.3); White Blood Cell 4.4 10^3/uL (4.4-10.8)
[2017-11-24 06:22] LABS: Basophils % (manual) 0 (0.0-2.0); Blast Cells 0; Metamyelocytes % 0; Myelocytes % 0; Promyelocytes % 0; Reactive Lymphocytes 0
[2017-11-24 06:24] LABS: INR 1.05 (0.9-1.15); Partial Thromboplastin Time 33.4 sec (22.64-33.71); Prothrombin Time 11.4 sec (9.37-12.3)
[2017-11-24 06:33] LABS: Albumin 2.7 g/dL (3.4-5.0); Bilirubin, Total 0.8 mg/dL (0.2-1.0); Calcium 8.9 mg/dL (8.5-10.1); Magnesium 2.4 mg/dL (1.6-2.6); Phosphorus 4.5 mg/dL (2.5-4.90); Potassium 4.1 mmol/L (3.5-5.1); Total Protein 6.8 g/dL (6.4-8.2)
[2017-11-24 06:45] LABS: Band Neutrophils % (manual) 1; Eosinophils % (manual) 5 (0-7); Lymphocytes % (manual) 20 (10.0-50.0); Monocytes % (manual) 19 (0-12)
[2017-11-24 09:00] VITALS: BP 116/68
[2017-11-24] MEDS: PROMETHAZINE HCL 25 MG/ML 1ML IV PRN (09:06)
[2017-11-24] MEDS: AMIODARONE HCL 200 MG TAB PO SCH (09:52)
[2017-11-24] MEDS: PANTOPRAZOLE 40 MG/10 ML VIAL IV SCH (09:52)
[2017-11-24] MEDS: FUROSEMIDE 40 MG/4 ML VIAL IV SCH (09:54)
[2017-11-24] MEDS: LEVOFLOXACIN 500MG 100 ML IV SCH (09:54)
[2017-11-24] MEDS: POTASSIUM CHL 10% (20 MEQ/15ML) 15ml ORAL SOLN GT SCH (09:56)
[2017-11-24 13:00] VITALS: BP 105/60
[2017-11-24 17:00] VITALS: BP 124/67
[2017-11-24] MEDS ORDERED: WARFARIN SODIUM 2.5 MG TAB PO ONE (17:00)
[2017-11-24] MEDS: HYDROcodone-ACET 5/325MG TAB PO PRN (21:24)
[2017-11-24 22:00] VITALS: BP 123/64
[2017-11-25] MEDS: ACCU-CHEK COMFORT CURVE STRIP VI SCH ×4 (00:16→18:03)
[2017-11-25] MEDS: KETOROLAC TROMETH 30 MG/ML 1ML VIAL IV SCH ×5 (00:16→18:02)
[2017-11-25] MEDS: IPRATROPIUM BROM 0.5 MG/2.5ML INH SOL NEB SCH ×4 (00:34→19:19)
[2017-11-25] MEDS: ALBUTEROL SULF 2.5 MG/0.5ML(0.5%) NEB SOLN NEB SCH ×4 (00:34→19:20)
[2017-11-25] MEDS: PROMETHAZINE HCL 25 MG/ML 1ML IV PRN (03:37)
[2017-11-25 05:00] VITALS: BP 120/56
[2017-11-25 05:39] LABS: Basophils # (auto) 0 uL; Eosinophils # (auto) 0.1 uL; Lymphocytes # (auto) 0.4 uL; Monocytes # (auto) 1.2 uL; Neutrophils # (auto) 5.1 uL; White Blood Cell 6.8 10^3/uL (4.4-10.8)
[2017-11-25] MEDS: HYDROcodone-ACET 5/325MG TAB PO PRN ×2 (05:40→09:56)
[2017-11-25 05:41] LABS: Basophils % (auto) 0.3 % (0.0-2.0); Eosinophils % (auto) 1.4 % (0.0-7.0); Hemoglobin 8.9 g/dL (13.5-17.5); Lymphocytes % (auto) 5.4 % (10.0-50.0); Mean Corpuscular Hemoglobin 26.1 pg (28.0-32.0); Mean Corpuscular Hgb Conc. 32.9 g/dL (32.0-36.0); Mean Corpuscular Volume 79.4 fL (80.0-100.0); Monocytes % (auto) 17.1 % (0.0-12.0); Neutrophils % (auto) 75.8 % (37.0-80.0); Platelet Count (auto) 119 10^3/uL (140-450); Red Cell Distribution Width 18.4 % (11.8-14.3)
[2017-11-25] MEDS: InsuLIN REG 1unit/0.01ml Soln (100units/ml) SC SCH ×4 (05:41→18:00)
[2017-11-25 05:48] LABS: INR 1.24 (0.9-1.15); Partial Thromboplastin Time 31.9 sec (22.64-33.71); Prothrombin Time 13.5 sec (9.37-12.3)
[2017-11-25 09:00] VITALS: BP 105/55
[2017-11-25] MEDS: LEVOFLOXACIN 500MG 100 ML IV SCH (10:46)
[2017-11-25] MEDS: PANTOPRAZOLE 40 MG/10 ML VIAL IV SCH (10:47)
[2017-11-25] MEDS: AMIODARONE HCL 200 MG TAB PO SCH (10:47)
[2017-11-25 13:00] VITALS: BP 91/61
[2017-11-25 13:59] VITALS: BP 99/46
[2017-11-25 17:00] VITALS: BP 116/48
[2017-11-25] MEDS ORDERED: WARFARIN SODIUM 2.5 MG TAB PO ONE (17:00)
[2017-11-25 18:42] LABS: BUN/Creatinine Ratio 20.8; Calcium 8.9 mg/dL (8.5-10.1); Potassium 4.2 mmol/L (3.5-5.1)
[2017-11-25 19:36] LABS: INR 1.34 (0.9-1.15); Partial Thromboplastin Time 37.8 sec (22.64-33.71); Prothrombin Time 14.6 sec (9.37-12.3)
[2017-11-26] VITALS (7 sets, daily range): BP systolic 104–141; BP diastolic 43–89
[2017-11-26] MEDS: ACCU-CHEK COMFORT CURVE STRIP VI SCH ×5 (00:24→23:50)
[2017-11-26] MEDS: KETOROLAC TROMETH 30 MG/ML 1ML VIAL IV SCH ×5 (00:24→23:50)
[2017-11-26] MEDS: IPRATROPIUM BROM 0.5 MG/2.5ML INH SOL NEB SCH ×4 (01:00→20:09)
[2017-11-26] MEDS: ALBUTEROL SULF 2.5 MG/0.5ML(0.5%) NEB SOLN NEB SCH ×4 (01:01→20:09)
[2017-11-26] MEDS: InsuLIN REG 1unit/0.01ml Soln (100units/ml) SC SCH ×5 (06:00→23:50)
[2017-11-26 06:45] LABS: INR 1.34 (0.9-1.15); Prothrombin Time 14.7 sec (9.37-12.3)
[2017-11-26 08:29] LABS: Hematocrit 27.4 % (41.0-53.0); Mean Corpuscular Hgb Conc. 32.8 g/dL (32.0-36.0); Mean Corpuscular Volume 79.2 fL (80.0-100.0); Platelet Count (auto) 114 10^3/uL (140-450); Red Blood Cells 3.46 10^6/uL (4.5-5.90); Red Cell Distribution Width 18.5 % (11.8-14.3); White Blood Cell 5.2 10^3/uL (4.4-10.8)
[2017-11-26 08:38] LABS: Band Neutrophils % (manual) 0; Basophils % (manual) 0 (0.0-2.0); Blast Cells 0; Metamyelocytes % 0; Myelocytes % 0; Promyelocytes % 0; Reactive Lymphocytes 0
[2017-11-26 08:50] LABS: Albumin 2.8 g/dL (3.4-5.0); BUN/Creatinine Ratio 19.3; Bilirubin, Total 0.6 mg/dL (0.2-1.0); Calcium 8.8 mg/dL (8.5-10.1); Potassium 4.4 mmol/L (3.5-5.1); Total Protein 6.5 g/dL (6.4-8.2)
[2017-11-26 09:26] LABS: Eosinophils % (manual) 2 (0-7); Lymphocytes % (manual) 13 (10.0-50.0); Monocytes % (manual) 27 (0-12)
[2017-11-26] MEDS ORDERED: IOHEXOL 350 MG/ML 100ML IJ ONE (09:45)
[2017-11-26] MEDS ORDERED: LIDOCAINE 2%HCL (LOCAL ANESTH.) INJ 20ML MDV ONE (09:45)
[2017-11-26] MEDS ORDERED: SODIUM BICARBONATE 50ML VIAL 100 ML in SOD CHL 0.45% 1,000 ML IV ONE (10:00)
[2017-11-26] MEDS: PANTOPRAZOLE 40 MG/10 ML VIAL IV SCH (10:00)
[2017-11-26] MEDS: AMIODARONE HCL 200 MG TAB PO SCH (10:00)
[2017-11-26] MEDS ORDERED: MIDAZOLAM HCL 1MG/1ML-2 ML VIAL ONE ×2 (10:07→11:11)
[2017-11-26] MEDS ORDERED: ANGIOMAX 250 MG VIAL IV ONE (10:07)
[2017-11-26] MEDS ORDERED: fentaNYL CITRATE 100 MCG/2 ML VL ONE ×2 (10:07→11:10)
[2017-11-26] MEDS ORDERED: SODIUM CHL 0.9% 50 ML ONE ×2 (10:07→11:01)
[2017-11-26] MEDS ORDERED: ADENOSINE 90 MG/30 ML INJ IV ONE ×2 (10:53→11:03)
[2017-11-26] MEDS ORDERED: CLOPIDOGREL 300 MG TAB ONE (11:43)
[2017-11-26] MEDS ORDERED: ASPirin 325 MG TAB ONE (11:43)
[2017-11-26] MEDS ORDERED: ASPirin-EC 325mg tab PO ONE (12:00)
[2017-11-26] MEDS ORDERED: ENOXAPARIN SOD 100 MG/1 ML SYRINGE SC ONE (12:00)
[2017-11-26] MEDS ORDERED: CLOPIDOGREL 300 MG TAB PO ONE (12:00)
[2017-11-26] MEDS ORDERED: LEVOFLOXACIN 500MG 100 ML IV SCH (14:00)
[2017-11-26] MEDS ORDERED: WARFARIN SODIUM 2.5 MG TAB PO ONE (17:00)
[2017-11-27] MEDS: ALBUTEROL SULF 2.5 MG/0.5ML(0.5%) NEB SOLN NEB SCH ×4 (00:28→18:41)
[2017-11-27] MEDS: IPRATROPIUM BROM 0.5 MG/2.5ML INH SOL NEB SCH ×4 (00:28→18:41)
[2017-11-27 05:00] VITALS: BP 120/68
[2017-11-27] MEDS: KETOROLAC TROMETH 30 MG/ML 1ML VIAL IV SCH ×3 (05:51→18:44)
[2017-11-27] MEDS: ACCU-CHEK COMFORT CURVE STRIP VI SCH ×3 (05:51→18:09)
[2017-11-27] MEDS: InsuLIN REG 1unit/0.01ml Soln (100units/ml) SC SCH ×3 (06:00→18:00)
[2017-11-27 06:25] LABS: Mean Corpuscular Volume 78.5 fL (80.0-100.0); Platelet Count (auto) 110 10^3/uL (140-450); Red Blood Cells 3.19 10^6/uL (4.5-5.90); Red Cell Distribution Width 18.4 % (11.8-14.3)
[2017-11-27 06:32] LABS: Hemoglobin 8.3 g/dL (13.5-17.5); Mean Corpuscular Hemoglobin 26.1 pg (28.0-32.0); Mean Corpuscular Hgb Conc. 33.3 g/dL (32.0-36.0); White Blood Cell 6.4 10^3/uL (4.4-10.8)
[2017-11-27 06:36] LABS: Band Neutrophils % (manual) 0; Basophils % (manual) 0 (0.0-2.0); Blast Cells 0; Metamyelocytes % 0; Myelocytes % 0; Promyelocytes % 0; Reactive Lymphocytes 0
[2017-11-27 06:38] LABS: INR 1.51 (0.9-1.15); Partial Thromboplastin Time 39.8 sec (22.64-33.71); Prothrombin Time 16.5 sec (9.37-12.3)
[2017-11-27 06:53] LABS: Albumin 2.7 g/dL (3.4-5.0); BUN/Creatinine Ratio 18.6; Bilirubin, Total 0.7 mg/dL (0.2-1.0); Calcium 8.4 mg/dL (8.5-10.1); Potassium 4.5 mmol/L (3.5-5.1); Total Protein 6.3 g/dL (6.4-8.2)
[2017-11-27 07:55] LABS: Eosinophils % (manual) 2 (0-7); Lymphocytes % (manual) 10 (10.0-50.0); Monocytes % (manual) 15 (0-12)
[2017-11-27 09:30] VITALS: BP_SYST 134; BP_SYST 93; BP_DIAS 53; BP_DIAS 73
[2017-11-27] MEDS: ENOXAPARIN SOD 100 MG/1 ML SYRINGE SC SCH (10:24)
[2017-11-27] MEDS: AMIODARONE HCL 200 MG TAB PO SCH (10:24)
[2017-11-27] MEDS: PANTOPRAZOLE 40 MG/10 ML VIAL IV SCH (10:24)
[2017-11-27] MEDS: CLOPIDOGREL BISULFATE 75 MG TAB PO SCH (10:24)
[2017-11-27 13:00] VITALS: BP 84/53
[2017-11-27] MEDS ORDERED: PHENYLEPHRINE HCL 1 % NASAL SPRAY 15ML PRN (13:15)
[2017-11-27] MEDS: LACTULOSE 20Gm/30ML SOLN PO PRN (13:50)
[2017-11-27 17:00] VITALS: BP 95/51
[2017-11-27] MEDS ORDERED: WARFARIN SODIUM 5 MG TAB PO ONE (17:00)
[2017-11-27] MEDS: ALBUTEROL SULF 2.5 MG/0.5ML(0.5%) NEB SOLN NEB PRN (21:30)
[2017-11-27 22:00] VITALS: BP 103/57
[2017-11-27] MEDS: HYDROcodone-ACET 5/325MG TAB PO PRN (22:22)
[2017-11-28] VITALS (11 sets, daily range): BP systolic 79–111; BP diastolic 41–64
[2017-11-28] MEDS: KETOROLAC TROMETH 30 MG/ML 1ML VIAL IV SCH ×3 (01:03→12:00)
[2017-11-28] MEDS: ACCU-CHEK COMFORT CURVE STRIP VI SCH ×4 (01:04→18:00)
[2017-11-28] MEDS: PROMETHAZINE HCL 25 MG/ML 1ML IV PRN (01:05)
[2017-11-28] MEDS: ALBUTEROL SULF 2.5 MG/0.5ML(0.5%) NEB SOLN NEB SCH ×4 (01:51→18:00)
[2017-11-28] MEDS: IPRATROPIUM BROM 0.5 MG/2.5ML INH SOL NEB SCH ×4 (01:51→18:00)
[2017-11-28] MEDS: InsuLIN REG 1unit/0.01ml Soln (100units/ml) SC SCH ×4 (06:00→18:00)
[2017-11-28 06:52] LABS: Hematocrit 22.1 % (41.0-53.0); Hemoglobin 7.3 g/dL (13.5-17.5); Platelet Count (auto) 96 10^3/uL (140-450)
[2017-11-28 06:56] LABS: Mean Corpuscular Hgb Conc. 33.1 g/dL (32.0-36.0); Mean Corpuscular Volume 78.5 fL (80.0-100.0); Red Blood Cells 2.82 10^6/uL (4.5-5.90); Red Cell Distribution Width 18.3 % (11.8-14.3)
[2017-11-28 06:59] LABS: Band Neutrophils % (manual) 0; Basophils % (manual) 0 (0.0-2.0); Blast Cells 0; Metamyelocytes % 0; Myelocytes % 0; Promyelocytes % 0; Reactive Lymphocytes 0
[2017-11-28 07:03] LABS: INR 1.51 (0.9-1.15); Partial Thromboplastin Time 37.7 sec (22.64-33.71); Prothrombin Time 16.5 sec (9.37-12.3)
[2017-11-28] MEDS: PANTOPRAZOLE 40 MG/10 ML VIAL IV SCH (10:03)
[2017-11-28] MEDS: AMIODARONE HCL 200 MG TAB PO SCH (10:04)
[2017-11-28] MEDS: CLOPIDOGREL BISULFATE 75 MG TAB PO SCH (10:04)
[2017-11-28] MEDS: ENOXAPARIN SOD 100 MG/1 ML SYRINGE SC SCH (10:11)
[2017-11-28 11:59] LABS: Eosinophils % (manual) 5 (0-7); Lymphocytes % (manual) 10 (10.0-50.0); Monocytes % (manual) 17 (0-12)
[2017-11-28] MEDS: SOD CHL 0.45% 1,000 ML IV SCH (14:15)
[2017-11-28] MEDS ORDERED: WARFARIN SODIUM 5 MG TAB PO ONE (17:00)
[2017-11-28] MEDS ORDERED: WARFARIN SODIUM 5 MG TAB PO SCH (17:00)
[2017-11-28 23:27] LABS: Hemoglobin 8.8 g/dL (13.5-17.5)
[2017-11-28 23:29] LABS: Hematocrit 27.1 % (41.0-53.0)
[2017-11-28 23:41] LABS: Albumin 2.6 g/dL (3.4-5.0); BUN/Creatinine Ratio 14.4; Potassium 3.9 mmol/L (3.5-5.1)
[2017-11-28 23:44] LABS: Bilirubin, Total 0.8 mg/dL (0.2-1.0)
[2017-11-29] VITALS (13 sets, daily range): BP systolic 112–139; BP diastolic 56–67
[2017-11-29] MEDS: ACCU-CHEK COMFORT CURVE STRIP VI SCH ×5 (00:17→23:49)
[2017-11-29] MEDS: SOD CHL 0.45% 1,000 ML IV SCH ×2 (03:35→16:08)
[2017-11-29] MEDS: InsuLIN REG 1unit/0.01ml Soln (100units/ml) SC SCH ×5 (06:00→23:49)
[2017-11-29 06:45] LABS: Hematocrit 31.3 % (41.0-53.0); Hemoglobin 10.3 g/dL (13.5-17.5); Mean Corpuscular Volume 81.7 fL (80.0-100.0); Platelet Count (auto) 97 10^3/uL (140-450); Red Blood Cells 3.83 10^6/uL (4.5-5.90); Red Cell Distribution Width 19.2 % (11.8-14.3); White Blood Cell 4.2 10^3/uL (4.4-10.8)
[2017-11-29 06:52] LABS: Basophils % (manual) 0 (0.0-2.0); Blast Cells 0; Metamyelocytes % 0; Myelocytes % 0; Promyelocytes % 0; Reactive Lymphocytes 0
[2017-11-29 07:06] LABS: Albumin 2.7 g/dL (3.4-5.0); Calcium 8.3 mg/dL (8.5-10.1); INR 1.53 (0.9-1.15); Partial Thromboplastin Time 41.1 sec (22.64-33.71); Potassium 3.7 mmol/L (3.5-5.1); Prothrombin Time 16.7 sec (9.37-12.3)
[2017-11-29 07:07] LABS: BUN/Creatinine Ratio 14.6
[2017-11-29 07:10] LABS: Bilirubin, Total 0.9 mg/dL (0.2-1.0); Total Protein 6.3 g/dL (6.4-8.2)
[2017-11-29] MEDS: IPRATROPIUM BROM 0.5 MG/2.5ML INH SOL NEB SCH ×4 (07:19→18:00)
[2017-11-29] MEDS: ALBUTEROL SULF 2.5 MG/0.5ML(0.5%) NEB SOLN NEB SCH ×4 (07:19→18:00)
[2017-11-29 10:12] LABS: Band Neutrophils % (manual) 2; Eosinophils % (manual) 4 (0-7); Lymphocytes % (manual) 19 (10.0-50.0); Monocytes % (manual) 17 (0-12)
[2017-11-29] MEDS: ENOXAPARIN SOD 100 MG/1 ML SYRINGE SC SCH (10:20)
[2017-11-29] MEDS: PANTOPRAZOLE 40 MG/10 ML VIAL IV SCH (10:20)
[2017-11-29] MEDS: CLOPIDOGREL BISULFATE 75 MG TAB PO SCH (10:21)
[2017-11-29] MEDS: AMIODARONE HCL 200 MG TAB PO SCH (12:30)
[2017-11-29] MEDS ORDERED: WARFARIN SODIUM 2.5 MG TAB PO ONE (17:00)
[2017-11-29] MEDS: HYDROcodone-ACET 5/325MG TAB PO PRN (20:41)
[2017-11-30] MEDS: IPRATROPIUM BROM 0.5 MG/2.5ML INH SOL NEB SCH ×4 (01:23→18:03)
[2017-11-30] MEDS: ALBUTEROL SULF 2.5 MG/0.5ML(0.5%) NEB SOLN NEB SCH ×4 (01:23→18:03)
[2017-11-30] MEDS: PROMETHAZINE HCL 25 MG/ML 1ML IV PRN ×2 (03:02→11:54)
[2017-11-30 05:00] VITALS: BP 132/71
[2017-11-30] MEDS: ACCU-CHEK COMFORT CURVE STRIP VI SCH ×4 (05:52→23:34)
[2017-11-30] MEDS: InsuLIN REG 1unit/0.01ml Soln (100units/ml) SC SCH ×4 (05:52→23:34)
[2017-11-30] MEDS: SOD CHL 0.45% 1,000 ML IV SCH ×2 (05:53→20:37)
[2017-11-30 09:00] VITALS: BP 110/56
[2017-11-30] MEDS: ENOXAPARIN SOD 100 MG/1 ML SYRINGE SC SCH (10:00)
[2017-11-30] MEDS: PANTOPRAZOLE 40 MG/10 ML VIAL IV SCH (10:39)
[2017-11-30] MEDS: CLOPIDOGREL BISULFATE 75 MG TAB PO SCH (10:39)
[2017-11-30] MEDS: AMIODARONE HCL 200 MG TAB PO SCH (10:40)
[2017-11-30 11:39] LABS: Basophils # (auto) 0 uL; Eosinophils # (auto) 0.1 uL; Hemoglobin 9.4 g/dL (13.5-17.5)
[2017-11-30 11:41] LABS: Basophils % (auto) 1.1 % (0.0-2.0); Eosinophils % (auto) 2.5 % (0.0-7.0); Hematocrit 28.6 % (41.0-53.0); Lymphocytes # (auto) 0.7 uL; Lymphocytes % (auto) 15.8 % (10.0-50.0); Mean Corpuscular Hemoglobin 26.9 pg (28.0-32.0); Mean Corpuscular Hgb Conc. 33.1 g/dL (32.0-36.0); Mean Corpuscular Volume 81.3 fL (80.0-100.0); Monocytes # (auto) 0.7 uL; Monocytes % (auto) 16.9 % (0.0-12.0); Neutrophils # (auto) 2.6 uL; Neutrophils % (auto) 63.7 % (37.0-80.0); Nucleated Red Blood Cells % 0.1 %; Platelet Count (auto) 87 10^3/uL (140-450); Red Blood Cells 3.51 10^6/uL (4.5-5.90); Red Cell Distribution Width 19.4 % (11.8-14.3); White Blood Cell 4.1 10^3/uL (4.4-10.8)
[2017-11-30 11:59] LABS: Albumin 2.5 g/dL (3.4-5.0); BUN/Creatinine Ratio 13.5; Bilirubin, Total 0.6 mg/dL (0.2-1.0); Calcium 7.5 mg/dL (8.5-10.1); Potassium 3.9 mmol/L (3.5-5.1)
[2017-11-30 12:02] LABS: INR 1.83 (0.9-1.15); Partial Thromboplastin Time 40.9 sec (22.64-33.71); Prothrombin Time 20.1 sec (9.37-12.3)
[2017-11-30 13:00] VITALS: BP 129/64
[2017-11-30 17:00] VITALS: BP 133/70
[2017-11-30] MEDS ORDERED: WARFARIN SODIUM 1 MG TAB PO ONE (17:00)
[2017-11-30] MEDS: HYDROcodone-ACET 5/325MG TAB PO PRN ×2 (18:03→22:09)
[2017-11-30 22:00] VITALS: BP 128/54
[2017-12-01] MEDS: ALBUTEROL SULF 2.5 MG/0.5ML(0.5%) NEB SOLN NEB SCH ×3 (00:48→18:00)
[2017-12-01] MEDS: HYDROcodone-ACET 5/325MG TAB PO PRN ×2 (02:57→20:53)
[2017-12-01 05:00] VITALS: BP 137/60
[2017-12-01] MEDS: InsuLIN REG 1unit/0.01ml Soln (100units/ml) SC SCH ×3 (05:55→17:26)
[2017-12-01] MEDS: ACCU-CHEK COMFORT CURVE STRIP VI SCH ×3 (05:55→17:26)
[2017-12-01] MEDS: IPRATROPIUM BROM 0.5 MG/2.5ML INH SOL NEB SCH ×2 (06:00→18:00)
[2017-12-01 09:00] VITALS: BP 125/69
[2017-12-01] MEDS: ENOXAPARIN SOD 100 MG/1 ML SYRINGE SC SCH ×2 (10:00→16:18)
[2017-12-01] MEDS: SOD CHL 0.45% 1,000 ML IV SCH (10:50)
[2017-12-01] MEDS: AMIODARONE HCL 200 MG TAB PO SCH (10:50)
[2017-12-01] MEDS: PANTOPRAZOLE 40 MG/10 ML VIAL IV SCH (10:50)
[2017-12-01] MEDS: CLOPIDOGREL BISULFATE 75 MG TAB PO SCH (11:54)
[2017-12-01 12:45] LABS: White Blood Cell 4.3 10^3/uL (4.4-10.8)
[2017-12-01 12:48] LABS: Hematocrit 28.5 % (41.0-53.0); Hemoglobin 9.4 g/dL (13.5-17.5); Mean Corpuscular Hemoglobin 27.1 pg (28.0-32.0); Mean Corpuscular Hgb Conc. 32.9 g/dL (32.0-36.0); Mean Corpuscular Volume 82.3 fL (80.0-100.0); Platelet Count (auto) 86 10^3/uL (140-450); Red Blood Cells 3.46 10^6/uL (4.5-5.90); Red Cell Distribution Width 19.7 % (11.8-14.3)
[2017-12-01 13:00] VITALS: BP 143/70
[2017-12-01 13:00] LABS: Band Neutrophils % (manual) 0; Basophils % (manual) 0 (0.0-2.0); Blast Cells 0; Metamyelocytes % 0; Myelocytes % 0; Promyelocytes % 0; Reactive Lymphocytes 0
[2017-12-01 13:14] LABS: INR 2.12 (0.9-1.15); Partial Thromboplastin Time 44.3 sec (22.64-33.71); Prothrombin Time 23.3 sec (9.37-12.3)
[2017-12-01 13:16] LABS: Albumin 2.5 g/dL (3.4-5.0); BUN/Creatinine Ratio 12.3; Bilirubin, Total 0.6 mg/dL (0.2-1.0); Calcium 7.7 mg/dL (8.5-10.1); Total Protein 5.8 g/dL (6.4-8.2)
[2017-12-01 13:29] LABS: Eosinophils % (manual) 2 (0-7); Lymphocytes % (manual) 12 (10.0-50.0); Monocytes % (manual) 14 (0-12)
[2017-12-01 17:00] VITALS: BP 132/62
[2017-12-01] MEDS ORDERED: WARFARIN SODIUM 1 MG TAB PO ONE (17:00)
[2017-12-01] MEDS: LACTULOSE 20Gm/30ML SOLN PO PRN (17:20)
[2017-12-01] MEDS: PROMETHAZINE HCL 25 MG/ML 1ML IV PRN (18:46)
[2017-12-01 22:00] VITALS: BP 126/63
[2017-12-02] MEDS: IPRATROPIUM BROM 0.5 MG/2.5ML INH SOL NEB SCH ×3 (00:18→11:52)
[2017-12-02] MEDS: ALBUTEROL SULF 2.5 MG/0.5ML(0.5%) NEB SOLN NEB SCH ×3 (00:18→11:53)
[2017-12-02] MEDS: ALBUTEROL SULF 2.5 MG/0.5ML(0.5%) NEB SOLN NEB PRN (01:07)
[2017-12-02] MEDS: ACCU-CHEK COMFORT CURVE STRIP VI SCH ×4 (01:24→18:00)
[2017-12-02] MEDS: SOD CHL 0.45% 1,000 ML IV SCH (01:25)
[2017-12-02] MEDS: HYDROcodone-ACET 5/325MG TAB PO PRN ×3 (03:41→17:06)
[2017-12-02 05:00] VITALS: BP 119/68
[2017-12-02] MEDS: InsuLIN REG 1unit/0.01ml Soln (100units/ml) SC SCH ×4 (06:00→18:00)
[2017-12-02 08:27] VITALS: BP 119/68
[2017-12-02 09:00] VITALS: BP 107/56
[2017-12-02] MEDS: PANTOPRAZOLE 40 MG/10 ML VIAL IV SCH (10:09)
[2017-12-02] MEDS: ENOXAPARIN SOD 100 MG/1 ML SYRINGE SC SCH (10:09)
[2017-12-02] MEDS: CLOPIDOGREL BISULFATE 75 MG TAB PO SCH (10:09)
[2017-12-02] MEDS: AMIODARONE HCL 200 MG TAB PO SCH (10:09)
[2017-12-02 11:14] LABS: Hematocrit 30.7 % (41.0-53.0); Red Blood Cells 3.66 10^6/uL (4.5-5.90)
[2017-12-02 11:17] LABS: Hemoglobin 9.9 g/dL (13.5-17.5); Mean Corpuscular Hemoglobin 27.2 pg (28.0-32.0); Mean Corpuscular Hgb Conc. 32.4 g/dL (32.0-36.0); Mean Corpuscular Volume 83.9 fL (80.0-100.0); Platelet Count (auto) 92 10^3/uL (140-450); Red Cell Distribution Width 19.7 % (11.8-14.3)
[2017-12-02 11:19] LABS: INR 1.93 (0.9-1.15); Prothrombin Time 21.2 sec (9.37-12.3)
[2017-12-02 11:21] LABS: Albumin 2.6 g/dL (3.4-5.0); BUN/Creatinine Ratio 11.4; Bilirubin, Total 0.6 mg/dL (0.2-1.0); Calcium 7.8 mg/dL (8.5-10.1); Potassium 4.1 mmol/L (3.5-5.1); Total Protein 6.1 g/dL (6.4-8.2)
[2017-12-02] MEDS: HYDROmorphone HCL 2 MG/ML VL IV PRN ×3 (11:26→18:36)
[2017-12-02 11:39] LABS: Band Neutrophils % (manual) 0; Basophils % (manual) 0 (0.0-2.0); Blast Cells 0; Promyelocytes % 0; Reactive Lymphocytes 0
[2017-12-02 11:50] LABS: Eosinophils % (manual) 2 (0-7); Lymphocytes % (manual) 28 (10.0-50.0); Metamyelocytes % 2; Monocytes % (manual) 12 (0-12); Myelocytes % 1
[2017-12-02 13:00] VITALS: BP 132/67
[2017-12-02 14:52] VITALS: BP 116/68
[2017-12-02 17:00] VITALS: BP 115/54
[2017-12-02] MEDS ORDERED: WARFARIN SODIUM 2.5 MG TAB PO ONE (17:00)
[2017-12-02] MEDS ORDERED: WARFARIN SODIUM 1 MG TAB PO ONE (17:00)
== END 2017-12-02 19:00 | disposition home or self-care (01) | DRG 853 ==
LOC: EDBD 03:50 → ER 03:50 → EDUNIT# 03:51 → OVERFLOW 03:51 → ICU WEST 11-20 22:39 → TELE-WESTW 11-23 19:40
PROVIDERS: ADMIT Internal Medicine; ATTEND Internal Medicine Pulmonary Disease
PROC: 5A1955Z Respiratory Ventilation, Greater than 96 Consecutive Hours (ICD-10-PCS; principal; 2017-11-14)
PROC: 0BH17EZ Insertion of Endotracheal Airway into Trachea, Via Natural or Artificial Opening (ICD-10-PCS; 2017-11-14)
PROC: 02HV33Z Insertion of Infusion Device into Superior Vena Cava, Percutaneous Approach (ICD-10-PCS; 2017-11-14)
PROC: 5A2204Z Restoration of Cardiac Rhythm, Single (ICD-10-PCS; 2017-11-16)
PROC: 027034Z Dilation of Coronary Artery, One Artery with Drug-eluting Intraluminal Device, Percutaneous Approach (ICD-10-PCS; 2017-11-26)
PROC: 4A023N8 Measurement of Cardiac Sampling and Pressure, Bilateral, Percutaneous Approach (ICD-10-PCS; 2017-11-26)
PROC: 5A09357 Assistance with Respiratory Ventilation, Less than 24 Consecutive Hours, Continuous Positive Airway Pressure (ICD-10-PCS; 2017-11-26)
PROC: B2111ZZ Fluoroscopy of Multiple Coronary Arteries using Low Osmolar Contrast (ICD-10-PCS; 2017-11-26)
PROC: 4A033BC Measurement of Arterial Pressure, Coronary, Percutaneous Approach (ICD-10-PCS; 2017-11-26)
PROC: 30233N1 Transfusion of Nonautologous Red Blood Cells into Peripheral Vein, Percutaneous Approach (ICD-10-PCS; 2017-11-28)
DX: A41.9 Sepsis, unspecified organism (principal); I21.4 Non-ST elevation (NSTEMI) myocardial infarction; J96.20 Acute and chronic respiratory failure, unspecified whether with hypoxia or hypercapnia; G92 Toxic encephalopathy; J18.9 Pneumonia, unspecified organism; I50.43 Acute on chronic combined systolic (congestive) and diastolic (congestive) heart failure; N17.9 Acute kidney failure, unspecified; E44.0 Moderate protein-calorie malnutrition; J44.0 Chronic obstructive pulmonary disease with (acute) lower respiratory infection; T82.858A Stenosis of other vascular prosthetic devices, implants and grafts, initial encounter; I13.0 Hypertensive heart and chronic kidney disease with heart failure and stage 1 through stage 4 chronic kidney disease, or unspecified chronic kidney disease; I48.92 Unspecified atrial flutter; I69.354 Hemiplegia and hemiparesis following cerebral infarction affecting left non-dominant side; D68.9 Coagulation defect, unspecified; D68.69 Other thrombophilia; D69.6 Thrombocytopenia, unspecified; I95.9 Hypotension, unspecified; E11.22 Type 2 diabetes mellitus with diabetic chronic kidney disease; E83.39 Other disorders of phosphorus metabolism; D63.8 Anemia in other chronic diseases classified elsewhere; N18.3 Chronic kidney disease, stage 3 (moderate); E03.9 Hypothyroidism, unspecified; E78.00 Pure hypercholesterolemia, unspecified; E78.5 Hyperlipidemia, unspecified; E86.9 Volume depletion, unspecified; E87.6 Hypokalemia; K43.9 Ventral hernia without obstruction or gangrene; G98.8 Other disorders of nervous system; T45.515A Adverse effect of anticoagulants, initial encounter; I25.10 Atherosclerotic heart disease of native coronary artery without angina pectoris; I35.0 Nonrheumatic aortic (valve) stenosis; I48.0 Paroxysmal atrial fibrillation; I71.4 Abdominal aortic aneurysm, without rupture; E66.01 Morbid (severe) obesity due to excess calories; Y84.0 Cardiac catheterization as the cause of abnormal reaction of the patient, or of later complication, without mention of misadventure at the time of the procedure; G47.33 Obstructive sleep apnea (adult) (pediatric); K57.90 Diverticulosis of intestine, part unspecified, without perforation or abscess without bleeding; K74.60 Unspecified cirrhosis of liver; N40.0 Benign prostatic hyperplasia without lower urinary tract symptoms; Z79.01 Long term (current) use of anticoagulants; Z82.49 Family history of ischemic heart disease and other diseases of the circulatory system; Z86.14 Personal history of Methicillin resistant Staphylococcus aureus infection; Z95.2 Presence of prosthetic heart valve; Z95.5 Presence of coronary angioplasty implant and graft; Z68.31 Body mass index [BMI] 31.0-31.9, adult; Z90.89 Acquired absence of other organs; Y92.89 Other specified places as the place of occurrence of the external cause; Z88.8 Allergy status to other drugs, medicaments and biological substances; Z88.1 Allergy status to other antibiotic agents; Z87.891 Personal history of nicotine dependence; Z87.440 Personal history of urinary (tract) infections
CPT/HCPCS: 31500; 36415; 36600; 51702; 70450; 71045; 71275; 80048; 80053; 80061; 80202; 81001; 82040; 82270; 82550; 82805; 82962; 83605; 83735; 83880; 84100; 84132; 84439; 84443; 84478; 84484; 85007; 85014; 85018; 85025; 85027; 85379; 85610; 85730; 86850; 86900; 86901; 86920; 87040; 87070; 87081; 87086; 87205; 87400; 92928; 93005; 93306; 93460; 93571; 94002; 94003; 94640; 94660; 95819; 96374; 97116; 97163; 97530; 99152; 99291; C1769; C1874; C9113; G0378; J0153; J0330; J1815; J1885; J1956; J2001; J2250; J2543; J2704; J7060; J7131; Q9967

== ENCOUNTER 2017-12-06 23:25 | Inpatient (IN) | payer MEDICARE ==
[~2017-12-06] VITALS: Ht 175.3 cm; Wt 94.6 kg
[2017-12-07 03:41] LABS: Basophils # (auto) 0 uL; Basophils % (auto) 0.6 % (0.0-2.0); Eosinophils # (auto) 0.1 uL; Eosinophils % (auto) 1.1 % (0.0-7.0); Hematocrit 41.2 % (41.0-53.0); Hemoglobin 13.5 g/dL (13.5-17.5); Lymphocytes # (auto) 0.8 uL; Lymphocytes % (auto) 11.9 % (10.0-50.0); Mean Corpuscular Hgb Conc. 32.7 g/dL (32.0-36.0); Mean Corpuscular Volume 82.5 fL (80.0-100.0); Monocytes # (auto) 1.1 uL; Monocytes % (auto) 15.5 % (0.0-12.0); Neutrophils % (auto) 70.9 % (37.0-80.0); Nucleated Red Blood Cells % 0.1 %; Platelet Count (auto) 126 10^3/uL (140-450); White Blood Cell 7.1 10^3/uL (4.4-10.8)
[2017-12-07 03:56] LABS: Urine Bacteria FEW /hpf (None Seen); Urine Blood Negative /uL (Negative); Urine Mucus FEW (None Seen); Urine Specific Gravity 1.019 (1.001-1.035); Urine WBC 5 /hpf (0 - 3)
[2017-12-07 04:00] LABS: Red Cell Distribution Width 20.3 % (11.8-14.3)
[2017-12-07 04:09] LABS: Albumin 3.1 g/dL (3.4-5.0); BUN/Creatinine Ratio 12.5; Bilirubin, Total 0.6 mg/dL (0.2-1.0); Calcium 8.1 mg/dL (8.5-10.1); Magnesium 2.4 mg/dL (1.6-2.6); Potassium 4.2 mmol/L (3.5-5.1); Total Protein 7.1 g/dL (6.4-8.2)
[2017-12-07] MEDS ORDERED: FUROSEMIDE 20 MG/2 ML VIAL IV ONE (05:30)
[2017-12-07 07:14] LABS: INR 1.73 (0.9-1.15); Partial Thromboplastin Time 29.6 sec (22.64-33.71)
[2017-12-07] MEDS ORDERED: IOHEXOL 350 MG/ML 100ML IJ ONE (07:24)
[2017-12-07] MEDS ORDERED: FUROSEMIDE 40 MG/4 ML VIAL IV ONE ×2 (07:30→13:00)
[2017-12-07] MEDS ORDERED: cefTRIAXone 1GM/10ml IVPUSH 10 ML IV ONE (07:30)
[2017-12-07] MEDS ORDERED: DOCUSATE SOD 100 MG CAP PO PRN (12:15)
[2017-12-07] MEDS ORDERED: PROMETHAZINE HCL 25 MG/ML 1ML IV PRN (12:15)
[2017-12-07] MEDS ORDERED: ALBUTEROL SULF 2.5 MG/0.5ML(0.5%) NEB SOLN NEB PRN (12:15)
[2017-12-07] MEDS ORDERED: LACTULOSE 20Gm/30ML SOLN PO PRN (12:15)
[2017-12-07] MEDS ORDERED: ACETAMINOPHEN 500 MG TAB PO PRN (12:15)
[2017-12-07] MEDS ORDERED: NITROGLYCERIN 0.4 MG SL TAB SL PRN (12:15)
[2017-12-07] MEDS ORDERED: MORPHINE SULFATE 10 MG/ML INJ 1ML SDV IV PRN (12:15)
[2017-12-07] MEDS ORDERED: MORPHINE SULF INJ 2 MG/ML SYRINGE 1ML IV PRN (12:15)
[2017-12-07] MEDS ORDERED: LEVOFLOXACIN 500MG 100 ML IV ONE (12:15)
[2017-12-07] MEDS ORDERED: OSELTAMIVIR 75 MG CAP PO ONE ×2 (12:15→13:00)
[2017-12-07] MEDS ORDERED: CLOPIDOGREL BISULFATE 75 MG TAB PO ONE (13:00)
[2017-12-07] MEDS ORDERED: POTASSIUM CHL 20 Meq TABLET PO ONE (13:00)
[2017-12-07] MEDS ORDERED: ATORVASTATIN 20 MG TAB PO ONE (13:00)
[2017-12-07] MEDS ORDERED: AMIODARONE HCL 200 MG TAB PO ONE (13:00)
[2017-12-07] MEDS ORDERED: CARVEDILOL 3.125 MG TAB PO ONE (13:00)
[2017-12-07] MEDS ORDERED: ASPirin 81 mg TAB PO ONE (13:00)
[2017-12-07] MEDS: CHOLECALCIFEROL (VITD3) 1,000 UNIT TAB PO SCH (14:31)
[2017-12-07] MEDS: SODIUM CHLOR 0.9% PF (SALINE LOCK) 10ML VIAL IV SCH ×3 (14:32→23:30)
[2017-12-07] MEDS: SENNA 8.6 MG TAB PO SCH ×2 (15:00→23:10)
[2017-12-07] MEDS ORDERED: WARFARIN SODIUM 2 MG TAB PO ONE (18:15)
[2017-12-07] MEDS: ALBUTEROL SULF 2.5 MG/0.5ML(0.5%) NEB SOLN NEB SCH (18:29)
[2017-12-07] MEDS: IPRATROPIUM BROM 0.5 MG/2.5ML INH SOL NEB SCH (18:29)
[2017-12-07 19:29] VITALS: BP 102/64
[2017-12-07] MEDS: HYDROcodone-ACET 5/325MG TAB PO PRN (20:33)
[2017-12-07] MEDS ORDERED: OSELTAMIVIR 75 MG CAP PO SCH (22:00)
[2017-12-07] MEDS ORDERED: CARVEDILOL 3.125 MG TAB PO SCH (22:00)
[2017-12-07] MEDS ORDERED: AMIODARONE HCL 200 MG TAB PO SCH (22:00)
[2017-12-07] MEDS: POTASSIUM CHL 20 Meq TABLET PO SCH (23:10)
[2017-12-07] MEDS: ATORVASTATIN 20 MG TAB PO SCH (23:10)
[2017-12-07] MEDS: FUROSEMIDE 40 MG/4 ML VIAL IV SCH (23:10)
[2017-12-07] MEDS: CARVEDILOL 3.125 MG TAB PO SCH (23:10)
[2017-12-07] MEDS: AMIODARONE HCL 200 MG TAB PO SCH (23:10)
[2017-12-08] MEDS: ALBUTEROL SULF 2.5 MG/0.5ML(0.5%) NEB SOLN NEB SCH ×4 (00:15→18:10)
[2017-12-08] MEDS: IPRATROPIUM BROM 0.5 MG/2.5ML INH SOL NEB SCH ×4 (00:15→18:10)
[2017-12-08 05:40] LABS: Hematocrit 30.4 % (41.0-53.0); Hemoglobin 10.1 g/dL (13.5-17.5); Mean Corpuscular Hemoglobin 27.3 pg (28.0-32.0); Mean Corpuscular Hgb Conc. 33.4 g/dL (32.0-36.0); Mean Corpuscular Volume 81.9 fL (80.0-100.0); Platelet Count (auto) 116 10^3/uL (140-450); Red Blood Cells 3.71 10^6/uL (4.5-5.90); Red Cell Distribution Width 19.8 % (11.8-14.3)
[2017-12-08 05:41] LABS: Band Neutrophils % (manual) 0; Basophils % (manual) 0 (0.0-2.0); Blast Cells 0; Metamyelocytes % 0; Myelocytes % 0; Promyelocytes % 0; Reactive Lymphocytes 0
[2017-12-08 05:48] LABS: INR 1.95 (0.9-1.15); Partial Thromboplastin Time 44.6 sec (22.64-33.71); Prothrombin Time 21.4 sec (9.37-12.3)
[2017-12-08 05:56] LABS: Albumin 2.8 g/dL (3.4-5.0); Bilirubin, Total 0.8 mg/dL (0.2-1.0); Calcium 8.1 mg/dL (8.5-10.1); Potassium 3.5 mmol/L (3.5-5.1); Total Protein 6.2 g/dL (6.4-8.2)
[2017-12-08 06:39] LABS: Eosinophils % (manual) 2 (0-7); Lymphocytes % (manual) 29 (10.0-50.0); Monocytes % (manual) 17 (0-12)
[2017-12-08] MEDS: SENNA 8.6 MG TAB PO SCH ×3 (07:30→22:00)
[2017-12-08] MEDS: HYDROcodone-ACET 5/325MG TAB PO PRN (07:32)
[2017-12-08] MEDS: CARVEDILOL 3.125 MG TAB PO SCH ×2 (09:53→22:00)
[2017-12-08] MEDS: FUROSEMIDE 40 MG/4 ML VIAL IV SCH ×2 (09:53→22:00)
[2017-12-08] MEDS: ASPirin 81 mg TAB PO SCH (09:53)
[2017-12-08] MEDS: AMIODARONE HCL 200 MG TAB PO SCH ×2 (09:53→22:00)
[2017-12-08] MEDS: LEVOFLOXACIN 500MG 100 ML IV SCH (09:53)
[2017-12-08] MEDS: CLOPIDOGREL BISULFATE 75 MG TAB PO SCH (09:54)
[2017-12-08] MEDS: POTASSIUM CHL 20 Meq TABLET PO SCH ×2 (09:54→22:00)
[2017-12-08] MEDS: CHOLECALCIFEROL (VITD3) 1,000 UNIT TAB PO SCH (09:54)
[2017-12-08] MEDS ORDERED: ATORVASTATIN 20 MG TAB PO SCH ×2 (10:00)
[2017-12-08] MEDS ORDERED: CLOPIDOGREL BISULFATE 75 MG TAB PO SCH (10:00)
[2017-12-08] MEDS ORDERED: ASPirin 81 mg TAB PO SCH (10:00)
[2017-12-08] MEDS: NITROGLYCERIN 0.2MG/HR TOPICAL PATCH TD SCH (10:18)
[2017-12-08] MEDS: SODIUM CHLOR 0.9% PF (SALINE LOCK) 10ML VIAL IV SCH ×2 (14:22→22:00)
[2017-12-08] MEDS: WARFARIN SODIUM 5 MG TAB PO ONE ×2 (17:14→17:51)
[2017-12-08] MEDS ORDERED: PHYTONADIONE (VIT K)10 MG/ML 1ML VIAL SUBCUT ONE (17:30)
[2017-12-08 17:59] LABS: INR 1.87 (0.9-1.15); Partial Thromboplastin Time 44.6 sec (22.64-33.71); Prothrombin Time 20.5 sec (9.37-12.3)
[2017-12-08] MEDS ORDERED: VANCOMYCIN PER PHARMACY 0 MG IV SCH (20:00)
[2017-12-08 20:30] VITALS: BP 119/71
[2017-12-08 20:58] VITALS: BP 119/71
[2017-12-08 21:00] VITALS: BP 118/75
[2017-12-08] MEDS: VANCOMYCIN 1,500 MG in D5W 5% 250 ML IV SCH (21:00)
[2017-12-08 22:00] VITALS: BP 115/74
[2017-12-08] MEDS: ATORVASTATIN 20 MG TAB PO SCH (22:00)
[2017-12-08 23:00] VITALS: BP 119/70
[2017-12-09] VITALS (8 sets, daily range): BP systolic 87–120; BP diastolic 53–69
[2017-12-09] MEDS: HYDROcodone-ACET 5/325MG TAB PO PRN ×2 (00:12→07:57)
[2017-12-09] MEDS: IPRATROPIUM BROM 0.5 MG/2.5ML INH SOL NEB SCH ×5 (00:18→18:29)
[2017-12-09] MEDS: ALBUTEROL SULF 2.5 MG/0.5ML(0.5%) NEB SOLN NEB SCH ×5 (00:18→18:29)
[2017-12-09 05:58] LABS: Hematocrit 31.9 % (41.0-53.0); Hemoglobin 10.6 g/dL (13.5-17.5); Mean Corpuscular Hgb Conc. 33.2 g/dL (32.0-36.0); Mean Corpuscular Volume 81.4 fL (80.0-100.0); Platelet Count (auto) 118 10^3/uL (140-450); Red Blood Cells 3.92 10^6/uL (4.5-5.90); White Blood Cell 4.5 10^3/uL (4.4-10.8)
[2017-12-09] MEDS: SODIUM CHLOR 0.9% PF (SALINE LOCK) 10ML VIAL IV SCH ×3 (06:00→21:20)
[2017-12-09] MEDS: SENNA 8.6 MG TAB PO SCH ×3 (06:00→21:19)
[2017-12-09 06:01] LABS: Red Cell Distribution Width 20.3 % (11.8-14.3)
[2017-12-09 06:03] LABS: Band Neutrophils % (manual) 0; Basophils % (manual) 0 (0.0-2.0); Blast Cells 0; Metamyelocytes % 0; Myelocytes % 0; Promyelocytes % 0; Reactive Lymphocytes 0
[2017-12-09 06:06] LABS: INR 1.62 (0.9-1.15); Partial Thromboplastin Time 42.5 sec (22.64-33.71); Prothrombin Time 17.7 sec (9.37-12.3)
[2017-12-09 06:13] LABS: BUN/Creatinine Ratio 11.9; Calcium 8.3 mg/dL (8.5-10.1); Potassium 3.5 mmol/L (3.5-5.1)
[2017-12-09] MEDS: POTASSIUM CHL 20 Meq TABLET PO SCH ×2 (10:00→21:19)
[2017-12-09] MEDS: CARVEDILOL 3.125 MG TAB PO SCH ×2 (10:00→21:21)
[2017-12-09] MEDS: AMIODARONE HCL 200 MG TAB PO SCH ×2 (10:00→21:19)
[2017-12-09] MEDS: FUROSEMIDE 40 MG/4 ML VIAL IV SCH ×2 (10:00→21:20)
[2017-12-09] MEDS: ASPirin 81 mg TAB PO SCH (10:00)
[2017-12-09] MEDS: NITROGLYCERIN 0.2MG/HR TOPICAL PATCH TD SCH (10:00)
[2017-12-09] MEDS: LEVOFLOXACIN 500MG 100 ML IV SCH (10:00)
[2017-12-09] MEDS: CHOLECALCIFEROL (VITD3) 1,000 UNIT TAB PO SCH (10:00)
[2017-12-09] MEDS: CLOPIDOGREL BISULFATE 75 MG TAB PO SCH (10:00)
[2017-12-09 11:47] LABS: Eosinophils % (manual) 2 (0-7); Lymphocytes % (manual) 23 (10.0-50.0); Monocytes % (manual) 20 (0-12)
[2017-12-09] MEDS: ATORVASTATIN 20 MG TAB PO SCH (21:18)
[2017-12-09] MEDS: VANCOMYCIN 1,500 MG in D5W 5% 250 ML IV SCH (21:31)
[2017-12-10] MEDS: HYDROcodone-ACET 5/325MG TAB PO PRN ×2 (00:08→13:46)
[2017-12-10] MEDS: IPRATROPIUM BROM 0.5 MG/2.5ML INH SOL NEB SCH ×4 (00:24→19:54)
[2017-12-10] MEDS: ALBUTEROL SULF 2.5 MG/0.5ML(0.5%) NEB SOLN NEB SCH ×4 (00:24→19:54)
[2017-12-10 04:15] VITALS: BP 103/73
[2017-12-10] MEDS: SODIUM CHLOR 0.9% PF (SALINE LOCK) 10ML VIAL IV SCH ×3 (05:12→21:53)
[2017-12-10] MEDS: SENNA 8.6 MG TAB PO SCH ×3 (05:17→21:49)
[2017-12-10 06:08] LABS: Hematocrit 29.9 % (41.0-53.0); Hemoglobin 9.8 g/dL (13.5-17.5); Platelet Count (auto) 105 10^3/uL (140-450); Red Blood Cells 3.64 10^6/uL (4.5-5.90); Red Cell Distribution Width 19.1 % (11.8-14.3); White Blood Cell 4.4 10^3/uL (4.4-10.8)
[2017-12-10 06:19] LABS: Band Neutrophils % (manual) 0; Basophils % (manual) 0 (0.0-2.0); Blast Cells 0; Metamyelocytes % 0; Myelocytes % 0; Promyelocytes % 0; Reactive Lymphocytes 0
[2017-12-10 06:22] LABS: BUN/Creatinine Ratio 13.3; Calcium 8.3 mg/dL (8.5-10.1); Potassium 3.6 mmol/L (3.5-5.1)
[2017-12-10 06:38] LABS: INR 1.17 (0.9-1.15); Partial Thromboplastin Time 37.6 sec (22.64-33.71); Prothrombin Time 12.8 sec (9.37-12.3)
[2017-12-10 08:00] VITALS: BP 103/66
[2017-12-10 08:07] LABS: Eosinophils % (manual) 2 (0-7); Lymphocytes % (manual) 22 (10.0-50.0); Monocytes % (manual) 19 (0-12)
[2017-12-10] MEDS: CHOLECALCIFEROL (VITD3) 1,000 UNIT TAB PO SCH (09:53)
[2017-12-10] MEDS: AMIODARONE HCL 200 MG TAB PO SCH ×2 (09:53→21:49)
[2017-12-10] MEDS: ASPirin 81 mg TAB PO SCH (09:53)
[2017-12-10] MEDS: POTASSIUM CHL 20 Meq TABLET PO SCH (09:53)
[2017-12-10] MEDS: LEVOFLOXACIN 500MG 100 ML IV SCH (09:54)
[2017-12-10] MEDS: CLOPIDOGREL BISULFATE 75 MG TAB PO SCH (09:55)
[2017-12-10] MEDS: NITROGLYCERIN 0.2MG/HR TOPICAL PATCH TD SCH (09:55)
[2017-12-10] MEDS: CARVEDILOL 3.125 MG TAB PO SCH ×2 (09:55→21:53)
[2017-12-10] MEDS: FUROSEMIDE 40 MG/4 ML VIAL IV SCH (09:56)
[2017-12-10] MEDS ORDERED: cefTRIAXone 1GM/10ml IVPUSH 10 ML IV ONE (11:15)
[2017-12-10 11:50] VITALS: BP 105/68
[2017-12-10 11:53] VITALS: BP 92/55
[2017-12-10 15:50] VITALS: BP 98/62
[2017-12-10] MEDS ORDERED: WARFARIN SODIUM 5 MG TAB PO ONE (17:00)
[2017-12-10 21:30] VITALS: BP 94/57
[2017-12-10] MEDS: ATORVASTATIN 20 MG TAB PO SCH (21:49)
[2017-12-11] MEDS: IPRATROPIUM BROM 0.5 MG/2.5ML INH SOL NEB SCH ×4 (00:32→18:04)
[2017-12-11] MEDS: ALBUTEROL SULF 2.5 MG/0.5ML(0.5%) NEB SOLN NEB SCH ×4 (00:32→18:04)
[2017-12-11 05:00] VITALS: BP 98/61
[2017-12-11 05:31] LABS: Hematocrit 30.6 % (41.0-53.0); Hemoglobin 9.7 g/dL (13.5-17.5); Mean Corpuscular Hemoglobin 27.1 pg (28.0-32.0); Mean Corpuscular Hgb Conc. 31.8 g/dL (32.0-36.0); Mean Corpuscular Volume 85.2 fL (80.0-100.0); Platelet Count (auto) 100 10^3/uL (140-450); Red Blood Cells 3.59 10^6/uL (4.5-5.90); Red Cell Distribution Width 19.9 % (11.8-14.3); White Blood Cell 4.8 10^3/uL (4.4-10.8)
[2017-12-11 05:51] LABS: INR 1.05 (0.9-1.15); Partial Thromboplastin Time 33.1 sec (22.64-33.71); Prothrombin Time 11.4 sec (9.37-12.3)
[2017-12-11] MEDS: SODIUM CHLOR 0.9% PF (SALINE LOCK) 10ML VIAL IV SCH ×2 (05:51→14:00)
[2017-12-11] MEDS: SENNA 8.6 MG TAB PO SCH ×2 (05:51→14:00)
[2017-12-11 05:53] LABS: Basophils % (manual) 0 (0.0-2.0); Blast Cells 0; Metamyelocytes % 0; Myelocytes % 0; Promyelocytes % 0; Reactive Lymphocytes 0
[2017-12-11 06:09] LABS: Albumin 2.8 g/dL (3.4-5.0); BUN/Creatinine Ratio 12.9; Bilirubin, Total 0.8 mg/dL (0.2-1.0); Calcium 8.3 mg/dL (8.5-10.1); Potassium 4.1 mmol/L (3.5-5.1); Total Protein 6.5 g/dL (6.4-8.2)
[2017-12-11 06:56] LABS: Band Neutrophils % (manual) 1; Eosinophils % (manual) 2 (0-7); Lymphocytes % (manual) 8 (10.0-50.0); Monocytes % (manual) 18 (0-12)
[2017-12-11] MEDS ORDERED: cefTRIAXone 1GM/10ml IVPUSH 10 ML IV SCH (09:00)
[2017-12-11 09:01] VITALS: BP 110/68
[2017-12-11] MEDS ORDERED: FLEET ENEMA(ADULT) 135 ML PR ONE (09:45)
[2017-12-11] MEDS ORDERED: CLOPIDOGREL BISULFATE 75 MG TAB PO SCH ×2 (10:00)
[2017-12-11] MEDS ORDERED: POTASSIUM CHL 20 Meq TABLET PO SCH (10:00)
[2017-12-11] MEDS ORDERED: FUROSEMIDE 40 MG/4 ML VIAL IV SCH (10:00)
[2017-12-11] MEDS: CARVEDILOL 3.125 MG TAB PO SCH (11:55)
[2017-12-11] MEDS: AMIODARONE HCL 200 MG TAB PO SCH (11:55)
[2017-12-11] MEDS: CHOLECALCIFEROL (VITD3) 1,000 UNIT TAB PO SCH (11:56)
[2017-12-11 12:27] VITALS: BP 110/71
[2017-12-11 13:04] VITALS: BP 110/71
== END 2017-12-11 18:50 | disposition short-term general hospital (02) | DRG 291 ==
LOC: EDBD 23:25 → ER 23:30 → EDUNIT# 23:31 → OVERFLOW 23:31 → DOU IN ICU 12-08 20:01 → TELE-CENTR 12-10 17:45
PROVIDERS: ADMIT Internal Medicine; ATTEND Internal Medicine
PROC: 0W9B3ZZ Drainage of Left Pleural Cavity, Percutaneous Approach (ICD-10-PCS; principal; 2017-12-11)
DX: I13.0 Hypertensive heart and chronic kidney disease with heart failure and stage 1 through stage 4 chronic kidney disease, or unspecified chronic kidney disease (principal); I50.33 Acute on chronic diastolic (congestive) heart failure; J96.20 Acute and chronic respiratory failure, unspecified whether with hypoxia or hypercapnia; L89.311 Pressure ulcer of right buttock, stage 1; L89.321 Pressure ulcer of left buttock, stage 1; J18.9 Pneumonia, unspecified organism; E44.0 Moderate protein-calorie malnutrition; D68.9 Coagulation defect, unspecified; D69.6 Thrombocytopenia, unspecified; J44.0 Chronic obstructive pulmonary disease with (acute) lower respiratory infection; N39.0 Urinary tract infection, site not specified; E11.22 Type 2 diabetes mellitus with diabetic chronic kidney disease; I35.0 Nonrheumatic aortic (valve) stenosis; F03.90 Unspecified dementia, unspecified severity, without behavioral disturbance, psychotic disturbance, mood disturbance, and anxiety; T45.515A Adverse effect of anticoagulants, initial encounter; E78.5 Hyperlipidemia, unspecified; I25.10 Atherosclerotic heart disease of native coronary artery without angina pectoris; I48.91 Unspecified atrial fibrillation; K21.9 Gastro-esophageal reflux disease without esophagitis; K59.00 Constipation, unspecified; N18.9 Chronic kidney disease, unspecified; Z68.30 Body mass index [BMI] 30.0-30.9, adult; I25.2 Old myocardial infarction; Z82.49 Family history of ischemic heart disease and other diseases of the circulatory system; Z86.73 Personal history of transient ischemic attack (TIA), and cerebral infarction without residual deficits; Z88.1 Allergy status to other antibiotic agents; Z88.8 Allergy status to other drugs, medicaments and biological substances; Z79.899 Other long term (current) drug therapy; Z79.01 Long term (current) use of anticoagulants; Z90.89 Acquired absence of other organs; Y92.89 Other specified places as the place of occurrence of the external cause; Z95.5 Presence of coronary angioplasty implant and graft
CPT/HCPCS: 10030; 32555; 36415; 71045; 71275; 76604; 76942; 80048; 80053; 80061; 81001; 82550; 83735; 83880; 84443; 84484; 85007; 85025; 85027; 85379; 85610; 85730; 86141; 87040; 87081; 87086; 87088; 87186; 87400; 89051; 93005; 94640; 96365; 96375; 97163; G0378; J1956; J3430; J7060

== ENCOUNTER 2018-03-05 15:41 | Inpatient (IN) | payer MEDICARE ==
[~2018-03-05] VITALS: Ht 175.3 cm; Wt 88.6 kg
[2018-03-05 17:33] LABS: Basophils # (auto) 0 uL; Basophils % (auto) 0.6 % (0.0-2.0); Eosinophils # (auto) 0.1 uL; Eosinophils % (auto) 1.9 % (0.0-7.0); Hematocrit 30.7 % (41.0-53.0); Lymphocytes # (auto) 0.8 uL; Lymphocytes % (auto) 11.7 % (10.0-50.0); Mean Corpuscular Hgb Conc. 32.6 g/dL (32.0-36.0); Mean Corpuscular Volume 83.1 fL (80.0-100.0); Monocytes # (auto) 1.1 uL; Monocytes % (auto) 15.4 % (0.0-12.0); Neutrophils # (auto) 4.9 uL; Neutrophils % (auto) 70.4 % (37.0-80.0); Nucleated Red Blood Cells % 0.1 %; Platelet Count (auto) 156 10^3/uL (140-450); Red Blood Cells 3.69 10^6/uL (4.5-5.90); Red Cell Distribution Width 16.9 % (11.8-14.3); White Blood Cell 6.9 10^3/uL (4.4-10.8)
[2018-03-05 17:53] LABS: Albumin 3.4 g/dL (3.4-5.0); BUN/Creatinine Ratio 15.7; Bilirubin, Total 0.4 mg/dL (0.2-1.0); Calcium 8.8 mg/dL (8.5-10.1); Potassium 4.8 mmol/L (3.5-5.1); Total Protein 7.8 g/dL (6.4-8.2)
[2018-03-05] MEDS ORDERED: KETOROLAC TROMETH 60MG/2ML VIAL IM ONE (23:00)
[2018-03-05] MEDS ORDERED: fentaNYL CITRATE 100 MCG/2 ML VL IV ONE (23:30)
[2018-03-05] MEDS ORDERED: VANCOMYCIN 1GM/250ML 250 ML IV ONE (23:30)
[2018-03-05] MEDS ORDERED: ONDANSETRON HCL 4 MG/2 ML VIAL IV ONE (23:30)
[2018-03-06] MEDS ORDERED: MORPHINE SULFATE 8mg/ml INJ SDV IV PRN (06:30)
[2018-03-06] MEDS ORDERED: NITROGLYCERIN 0.4 MG SL TAB SL PRN (06:30)
[2018-03-06] MEDS ORDERED: ONDANSETRON HCL 4 MG/2 ML VIAL IV PRN (06:30)
[2018-03-06] MEDS ORDERED: ACETAMINOPHEN 500 MG TAB PO PRN (06:30)
[2018-03-06] MEDS: HYDROcodone-ACET 5/325MG TAB PO PRN ×4 (06:40→21:53)
[2018-03-06 07:10] LABS: BUN/Creatinine Ratio 16.7; Potassium 5.1 mmol/L (3.5-5.1)
[2018-03-06 07:11] LABS: Basophils # (auto) 0 uL; Basophils % (auto) 0.6 % (0.0-2.0); Eosinophils # (auto) 0.1 uL; Eosinophils % (auto) 2.3 % (0.0-7.0); Hemoglobin 10.3 g/dL (13.5-17.5); Lymphocytes # (auto) 1.1 uL; Lymphocytes % (auto) 19.5 % (10.0-50.0); Mean Corpuscular Hemoglobin 27.3 pg (28.0-32.0); Mean Corpuscular Hgb Conc. 33.1 g/dL (32.0-36.0); Mean Corpuscular Volume 82.3 fL (80.0-100.0); Monocytes # (auto) 0.8 uL; Monocytes % (auto) 14.1 % (0.0-12.0); Neutrophils # (auto) 3.6 uL; Neutrophils % (auto) 63.5 % (37.0-80.0); Nucleated Red Blood Cells % 0.1 %; Platelet Count (auto) 145 10^3/uL (140-450); Red Blood Cells 3.76 10^6/uL (4.5-5.90); Red Cell Distribution Width 16.5 % (11.8-14.3); White Blood Cell 5.6 10^3/uL (4.4-10.8)
[2018-03-06] MEDS: FUROSEMIDE 40 MG TAB PO SCH (10:00)
[2018-03-06] MEDS: METOPROLOL SUCCINATE XL 50 MG TAB PO SCH (10:00)
[2018-03-06] MEDS: SPIRONOLACTONE 25 MG TAB PO SCH (10:00)
[2018-03-06 10:47] LABS: INR 1.4 (0.9-1.15); Partial Thromboplastin Time 36.7 sec (22.64-33.71); Prothrombin Time 15.3 sec (9.37-12.3)
[2018-03-06 10:48] VITALS: BP 109/57
[2018-03-06] MEDS: MORPHINE SULFATE 8mg/ml INJ SDV IV PRN (11:15)
[2018-03-06 15:49] LABS: Urine Bacteria NONE SEEN /hpf (None Seen); Urine Blood Negative /uL (Negative); Urine Specific Gravity 1.017 (1.001-1.035); Urine WBC 39 /hpf (0 - 3); Urine WBC Clumps PRESENT /hpf (None Seen)
[2018-03-06] MEDS: PIPERACILLIN-TAZOB 2.25GM 50 ML IV SCH ×3 (15:58→23:35)
[2018-03-06 17:00] VITALS: BP 119/67
[2018-03-06] MEDS ORDERED: WARFARIN SODIUM 2 MG TAB PO ONE (17:00)
[2018-03-06] MEDS: LACTULOSE 20Gm/30ML SOLN PO SCH (21:52)
[2018-03-06] MEDS: ATORVASTATIN 20 MG TAB PO SCH (21:53)
[2018-03-06 22:00] VITALS: BP 114/63
[2018-03-06] MEDS: FLUTICASONE PROP NASAL SPR 0.05 % (50MCG) 16GM EACHNOSTRI SCH (23:35)
[2018-03-07] MEDS: HYDROcodone-ACET 5/325MG TAB PO PRN ×3 (02:30→20:37)
[2018-03-07 05:00] VITALS: BP 122/70
[2018-03-07] MEDS: PIPERACILLIN-TAZOB 2.25GM 50 ML IV SCH ×3 (05:45→18:23)
[2018-03-07 06:15] LABS: Hematocrit 29.9 % (41.0-53.0); Hemoglobin 9.8 g/dL (13.5-17.5); Mean Corpuscular Hgb Conc. 32.7 g/dL (32.0-36.0); Mean Corpuscular Volume 82.3 fL (80.0-100.0); Platelet Count (auto) 133 10^3/uL (140-450); Red Blood Cells 3.63 10^6/uL (4.5-5.90); Red Cell Distribution Width 16.2 % (11.8-14.3); White Blood Cell 5.6 10^3/uL (4.4-10.8)
[2018-03-07 06:17] LABS: INR 1.16 (0.9-1.15); Partial Thromboplastin Time 34.5 sec (22.64-33.71); Prothrombin Time 12.7 sec (9.37-12.3)
[2018-03-07 06:18] LABS: Band Neutrophils % (manual) 0; Basophils % (manual) 0 (0.0-2.0); Blast Cells 0; Metamyelocytes % 0; Myelocytes % 0; Promyelocytes % 0; Reactive Lymphocytes 0
[2018-03-07 06:26] LABS: BUN/Creatinine Ratio 16.9; Calcium 8.9 mg/dL (8.5-10.1); Potassium 5.1 mmol/L (3.5-5.1)
[2018-03-07 06:40] LABS: Eosinophils % (manual) 2 (0-7); Lymphocytes % (manual) 28 (10.0-50.0); Monocytes % (manual) 21 (0-12)
[2018-03-07 09:00] VITALS: BP 124/73
[2018-03-07] MEDS: FLUTICASONE PROP NASAL SPR 0.05 % (50MCG) 16GM EACHNOSTRI SCH ×2 (10:03→22:43)
[2018-03-07] MEDS: FUROSEMIDE 40 MG TAB PO SCH (10:04)
[2018-03-07] MEDS: SPIRONOLACTONE 25 MG TAB PO SCH (10:05)
[2018-03-07] MEDS: METOPROLOL SUCCINATE XL 50 MG TAB PO SCH (10:06)
[2018-03-07] MEDS: ENOXAPARIN SOD 100 MG/1 ML SYRINGE SC SCH ×2 (10:13→22:00)
[2018-03-07] MEDS ORDERED: ASPirin 81 mg TAB PO ONE (12:30)
[2018-03-07 13:00] VITALS: BP 121/69
[2018-03-07] MEDS: SODIUM CHLORIDE 0.9% 1,000 ML IV SCH (13:40)
[2018-03-07 17:00] VITALS: BP 120/65
[2018-03-07 22:00] VITALS: BP 116/64
[2018-03-07] MEDS: LACTULOSE 20Gm/30ML SOLN PO SCH (22:00)
[2018-03-07] MEDS: ATORVASTATIN 20 MG TAB PO SCH (22:43)
[2018-03-08] MEDS: PIPERACILLIN-TAZOB 2.25GM 50 ML IV SCH ×5 (01:27→23:35)
[2018-03-08] MEDS: SODIUM CHLORIDE 0.9% 1,000 ML IV SCH (02:20)
[2018-03-08 05:15] VITALS: BP 116/79
[2018-03-08 06:12] LABS: Hematocrit 26.6 % (41.0-53.0); Hemoglobin 9.1 g/dL (13.5-17.5); Mean Corpuscular Hemoglobin 27.8 pg (28.0-32.0); Mean Corpuscular Hgb Conc. 34.2 g/dL (32.0-36.0); Mean Corpuscular Volume 81.3 fL (80.0-100.0); Platelet Count (auto) 122 10^3/uL (140-450); Red Blood Cells 3.27 10^6/uL (4.5-5.90); Red Cell Distribution Width 16.1 % (11.8-14.3); White Blood Cell 4.9 10^3/uL (4.4-10.8)
[2018-03-08 06:16] LABS: Band Neutrophils % (manual) 0; Basophils % (manual) 0 (0.0-2.0); Blast Cells 0; Metamyelocytes % 0; Myelocytes % 0; Promyelocytes % 0; Reactive Lymphocytes 0
[2018-03-08 06:17] LABS: INR 1.15 (0.9-1.15); Prothrombin Time 12.6 sec (9.37-12.3)
[2018-03-08 06:22] LABS: BUN/Creatinine Ratio 15.3; Calcium 8.6 mg/dL (8.5-10.1); Potassium 4.6 mmol/L (3.5-5.1)
[2018-03-08] MEDS: HYDROcodone-ACET 5/325MG TAB PO PRN (06:24)
[2018-03-08 08:53] LABS: Eosinophils % (manual) 1 (0-7); Lymphocytes % (manual) 14 (10.0-50.0); Monocytes % (manual) 12 (0-12)
[2018-03-08 09:00] VITALS: BP 126/54
[2018-03-08] MEDS ORDERED: SODIUM CHLORIDE 0.9% 1,000 ML IV SCH ×2 (09:30→15:00)
[2018-03-08] MEDS: METOPROLOL SUCCINATE XL 50 MG TAB PO SCH (10:00)
[2018-03-08] MEDS: FLUTICASONE PROP NASAL SPR 0.05 % (50MCG) 16GM EACHNOSTRI SCH ×2 (10:18→22:01)
[2018-03-08] MEDS: ASPirin 81 mg TAB PO SCH (10:18)
[2018-03-08] MEDS: FUROSEMIDE 40 MG TAB PO SCH (10:19)
[2018-03-08] MEDS: ENOXAPARIN SOD 80 MG/0.8ML SYRINGE SC SCH (10:20)
[2018-03-08] MEDS: D5W/SOD CHL 0.45% 1,000 ML IV SCH ×2 (11:38→14:31)
[2018-03-08 13:00] VITALS: BP 122/59
[2018-03-08 14:02] LABS: Creatinine, Urine 32 mg/dL (30.0-125.0); Sodium Urine 53 mmol/L (40-220)
[2018-03-08] MEDS: SENNA 8.6 MG TAB PO PRN (14:35)
[2018-03-08 17:00] VITALS: BP 110/58
[2018-03-08] MEDS: TAMSULOSIN HYDROCHLORIDE 0.4 MG CAP PO SCH (17:52)
[2018-03-08 19:35] VITALS: BP 149/66
[2018-03-08] MEDS: ATORVASTATIN 20 MG TAB PO SCH (22:00)
[2018-03-08] MEDS: LACTULOSE 20Gm/30ML SOLN PO SCH (22:03)
[2018-03-09] MEDS: HYDROcodone-ACET 5/325MG TAB PO PRN ×3 (02:03→21:58)
[2018-03-09] MEDS: D5W/SOD CHL 0.45% 1,000 ML IV SCH (04:10)
[2018-03-09] MEDS: PIPERACILLIN-TAZOB 2.25GM 50 ML IV SCH ×4 (05:25→23:56)
[2018-03-09 05:55] VITALS: BP 119/67
[2018-03-09 06:35] LABS: Basophils # (auto) 0 uL; Basophils % (auto) 0.4 % (0.0-2.0); Eosinophils # (auto) 0.1 uL; Eosinophils % (auto) 2.9 % (0.0-7.0); Hematocrit 26.3 % (41.0-53.0); Hemoglobin 8.8 g/dL (13.5-17.5); Lymphocytes # (auto) 0.9 uL; Lymphocytes % (auto) 21.1 % (10.0-50.0); Mean Corpuscular Hemoglobin 27.3 pg (28.0-32.0); Mean Corpuscular Hgb Conc. 33.3 g/dL (32.0-36.0); Mean Corpuscular Volume 81.8 fL (80.0-100.0); Monocytes # (auto) 0.9 uL; Neutrophils # (auto) 2.4 uL; Neutrophils % (auto) 55.7 % (37.0-80.0); Nucleated Red Blood Cells % 0.1 %; Platelet Count (auto) 107 10^3/uL (140-450); Red Blood Cells 3.21 10^6/uL (4.5-5.90); Red Cell Distribution Width 16.3 % (11.8-14.3); White Blood Cell 4.3 10^3/uL (4.4-10.8)
[2018-03-09 06:37] LABS: Monocytes % (auto) 19.9 % (0.0-12.0)
[2018-03-09 06:40] LABS: INR 1.07 (0.9-1.15); Prothrombin Time 11.7 sec (9.37-12.3)
[2018-03-09 06:49] LABS: BUN/Creatinine Ratio 14.5; Calcium 8.6 mg/dL (8.5-10.1); Phosphorus 3.2 mg/dL (2.5-4.90); Uric Acid 5.4 mg/dL (3.5-7.2)
[2018-03-09 09:00] VITALS: BP 144/57
[2018-03-09] MEDS: FLUTICASONE PROP NASAL SPR 0.05 % (50MCG) 16GM EACHNOSTRI SCH ×2 (09:57→21:57)
[2018-03-09] MEDS: ASPirin 81 mg TAB PO SCH (09:57)
[2018-03-09] MEDS: CLOPIDOGREL BISULFATE 75 MG TAB PO SCH (09:58)
[2018-03-09] MEDS: FUROSEMIDE 40 MG TAB PO SCH (09:58)
[2018-03-09] MEDS: SODIUM CHLORIDE 0.9% 1,000 ML IV SCH ×2 (09:59→22:35)
[2018-03-09] MEDS: ENOXAPARIN SOD 80 MG/0.8ML SYRINGE SC SCH (09:59)
[2018-03-09] MEDS: METOPROLOL SUCCINATE XL 50 MG TAB PO SCH (09:59)
[2018-03-09 13:00] VITALS: BP 169/91
[2018-03-09] MEDS: SENNA 8.6 MG TAB PO PRN (16:06)
[2018-03-09 17:49] VITALS: BP 140/64
[2018-03-09] MEDS: TAMSULOSIN HYDROCHLORIDE 0.4 MG CAP PO SCH (18:06)
[2018-03-09] MEDS: ASCORBIC ACID 500 MG TAB PO SCH (21:57)
[2018-03-09] MEDS: ATORVASTATIN 20 MG TAB PO SCH (21:58)
[2018-03-09 22:00] VITALS: BP 102/62
[2018-03-09] MEDS: LACTULOSE 20Gm/30ML SOLN PO SCH (22:00)
[2018-03-10 05:05] VITALS: BP 128/74
[2018-03-10 05:24] LABS: Hematocrit 26.3 % (41.0-53.0); Hemoglobin 8.8 g/dL (13.5-17.5); Mean Corpuscular Hemoglobin 27.3 pg (28.0-32.0); Mean Corpuscular Hgb Conc. 33.4 g/dL (32.0-36.0); Mean Corpuscular Volume 81.8 fL (80.0-100.0); Platelet Count (auto) 108 10^3/uL (140-450); Red Blood Cells 3.22 10^6/uL (4.5-5.90); Red Cell Distribution Width 16.5 % (11.8-14.3); White Blood Cell 4.1 10^3/uL (4.4-10.8)
[2018-03-10 05:27] LABS: Basophils % (manual) 0 (0.0-2.0); Blast Cells 0; Metamyelocytes % 0; Myelocytes % 0; Promyelocytes % 0; Reactive Lymphocytes 0
[2018-03-10 05:48] LABS: INR 1.1 (0.9-1.15)
[2018-03-10] MEDS: PIPERACILLIN-TAZOB 2.25GM 50 ML IV SCH ×3 (05:49→19:45)
[2018-03-10 06:00] LABS: Calcium 8.8 mg/dL (8.5-10.1); Potassium 4.3 mmol/L (3.5-5.1)
[2018-03-10 06:03] LABS: BUN/Creatinine Ratio 15.5
[2018-03-10 06:19] LABS: Band Neutrophils % (manual) 2; Eosinophils % (manual) 2 (0-7); Lymphocytes % (manual) 27 (10.0-50.0); Monocytes % (manual) 13 (0-12)
[2018-03-10 08:00] VITALS: BP 144/57
[2018-03-10] MEDS: ASPirin 81 mg TAB PO SCH (08:54)
[2018-03-10] MEDS: MULTIPLE VITAMIN TAB PO SCH (08:55)
[2018-03-10] MEDS: CLOPIDOGREL BISULFATE 75 MG TAB PO SCH (08:55)
[2018-03-10] MEDS: FUROSEMIDE 40 MG TAB PO SCH (08:55)
[2018-03-10] MEDS: ASCORBIC ACID 500 MG TAB PO SCH ×2 (08:56→22:07)
[2018-03-10] MEDS: ENOXAPARIN SOD 80 MG/0.8ML SYRINGE SC SCH (08:56)
[2018-03-10] MEDS: METOPROLOL SUCCINATE XL 50 MG TAB PO SCH (08:56)
[2018-03-10 09:00] VITALS: BP 122/64
[2018-03-10] MEDS: FLUTICASONE PROP NASAL SPR 0.05 % (50MCG) 16GM EACHNOSTRI SCH ×2 (10:00→22:06)
[2018-03-10] MEDS: SODIUM CHLORIDE 0.9% 1,000 ML IV SCH (11:55)
[2018-03-10 12:58] VITALS: BP 106/63
[2018-03-10] MEDS ORDERED: ANGIOMAX 250 MG VIAL IV ONE ×2 (16:36→17:19)
[2018-03-10] MEDS ORDERED: fentaNYL CITRATE 100 MCG/2 ML VL ONE (16:36)
[2018-03-10] MEDS ORDERED: MIDAZOLAM HCL 1MG/1ML-2 ML VIAL ONE (16:37)
[2018-03-10] MEDS ORDERED: SODIUM CHL 0.9% 50 ML ONE ×2 (16:37→17:19)
[2018-03-10] MEDS ORDERED: IODIXANOL 320MG/ML 100ML BTL IV ONE (16:50)
[2018-03-10] MEDS: LACTULOSE 20Gm/30ML SOLN PO SCH (22:06)
[2018-03-10] MEDS: ATORVASTATIN 20 MG TAB PO SCH (22:07)
[2018-03-10] MEDS: TAMSULOSIN HYDROCHLORIDE 0.4 MG CAP PO SCH (22:07)
[2018-03-10 22:38] VITALS: BP 96/55
[2018-03-11] MEDS: PIPERACILLIN-TAZOB 2.25GM 50 ML IV SCH ×5 (01:00→23:58)
[2018-03-11] MEDS: SODIUM CHLORIDE 0.9% 1,000 ML IV SCH ×2 (01:36→14:35)
[2018-03-11] MEDS: HYDROcodone-ACET 5/325MG TAB PO PRN ×3 (01:45→20:08)
[2018-03-11 05:05] VITALS: BP 120/64
[2018-03-11 06:47] LABS: INR 1.05 (0.9-1.15); Prothrombin Time 11.5 sec (9.37-12.3)
[2018-03-11 06:51] LABS: BUN/Creatinine Ratio 14.6; Calcium 8.7 mg/dL (8.5-10.1); Hematocrit 26.5 % (41.0-53.0); Mean Corpuscular Hemoglobin 28.1 pg (28.0-32.0); Mean Corpuscular Hgb Conc. 34.2 g/dL (32.0-36.0); Mean Corpuscular Volume 82.1 fL (80.0-100.0); Platelet Count (auto) 112 10^3/uL (140-450); Potassium 3.8 mmol/L (3.5-5.1); Red Blood Cells 3.22 10^6/uL (4.5-5.90); Red Cell Distribution Width 16.7 % (11.8-14.3); White Blood Cell 5.1 10^3/uL (4.4-10.8)
[2018-03-11 07:06] LABS: Band Neutrophils % (manual) 0; Basophils % (manual) 0 (0.0-2.0); Blast Cells 0; Metamyelocytes % 0; Myelocytes % 0; Promyelocytes % 0; Reactive Lymphocytes 0
[2018-03-11 08:00] VITALS: BP 135/53
[2018-03-11 08:56] VITALS: BP 137/53
[2018-03-11] MEDS: CLOPIDOGREL BISULFATE 75 MG TAB PO SCH (09:51)
[2018-03-11] MEDS: ASPirin 81 mg TAB PO SCH (09:51)
[2018-03-11] MEDS: ASCORBIC ACID 500 MG TAB PO SCH ×2 (09:51→22:11)
[2018-03-11] MEDS: MULTIPLE VITAMIN TAB PO SCH (09:52)
[2018-03-11] MEDS: FUROSEMIDE 40 MG TAB PO SCH (09:52)
[2018-03-11] MEDS: METOPROLOL SUCCINATE XL 50 MG TAB PO SCH (09:53)
[2018-03-11] MEDS: FLUTICASONE PROP NASAL SPR 0.05 % (50MCG) 16GM EACHNOSTRI SCH ×2 (09:59→22:00)
[2018-03-11] MEDS: ENOXAPARIN SOD 80 MG/0.8ML SYRINGE SC SCH (10:00)
[2018-03-11 11:52] LABS: Eosinophils % (manual) 2 (0-7); Lymphocytes % (manual) 14 (10.0-50.0); Monocytes % (manual) 17 (0-12)
[2018-03-11 13:00] VITALS: BP 135/53
[2018-03-11 17:00] VITALS: BP 130/56
[2018-03-11] MEDS: TAMSULOSIN HYDROCHLORIDE 0.4 MG CAP PO SCH (17:46)
[2018-03-11] MEDS: SENNA 8.6 MG TAB PO PRN (18:43)
[2018-03-11 22:00] VITALS: BP_SYST 112; BP_SYST 120; BP_DIAS 63; BP_DIAS 69
[2018-03-11] MEDS: ATORVASTATIN 20 MG TAB PO SCH (22:10)
[2018-03-11] MEDS: LACTULOSE 20Gm/30ML SOLN PO SCH (22:11)
[2018-03-12] MEDS: HYDROcodone-ACET 5/325MG TAB PO PRN ×4 (00:51→22:09)
[2018-03-12] MEDS: SODIUM CHLORIDE 0.9% 1,000 ML IV SCH ×2 (04:18→17:37)
[2018-03-12 04:51] VITALS: BP 114/65
[2018-03-12] MEDS: PIPERACILLIN-TAZOB 2.25GM 50 ML IV SCH ×4 (05:49→23:56)
[2018-03-12 06:30] LABS: INR 1.04 (0.9-1.15); Prothrombin Time 11.3 sec (9.37-12.3)
[2018-03-12 08:33] LABS: BUN/Creatinine Ratio 14.8; Calcium 8.4 mg/dL (8.5-10.1); Potassium 4.1 mmol/L (3.5-5.1)
[2018-03-12 09:00] VITALS: BP 117/62
[2018-03-12] MEDS: MORPHINE SULFATE 8mg/ml INJ SDV IV PRN (09:34)
[2018-03-12] MEDS: FLUTICASONE PROP NASAL SPR 0.05 % (50MCG) 16GM EACHNOSTRI SCH ×2 (10:00→22:00)
[2018-03-12] MEDS: MULTIPLE VITAMIN TAB PO SCH (10:12)
[2018-03-12] MEDS: CLOPIDOGREL BISULFATE 75 MG TAB PO SCH (10:12)
[2018-03-12] MEDS: ASPirin 81 mg TAB PO SCH (10:12)
[2018-03-12] MEDS: FUROSEMIDE 40 MG TAB PO SCH (10:13)
[2018-03-12] MEDS: ASCORBIC ACID 500 MG TAB PO SCH ×2 (10:14→22:09)
[2018-03-12] MEDS: ENOXAPARIN SOD 80 MG/0.8ML SYRINGE SC SCH (10:14)
[2018-03-12] MEDS: METOPROLOL SUCCINATE XL 50 MG TAB PO SCH (10:14)
[2018-03-12 13:00] VITALS: BP 107/55
[2018-03-12 17:00] VITALS: BP 112/58
[2018-03-12] MEDS: TAMSULOSIN HYDROCHLORIDE 0.4 MG CAP PO SCH (17:37)
[2018-03-12 22:00] VITALS: BP 108/62
[2018-03-12] MEDS: ATORVASTATIN 20 MG TAB PO SCH (22:08)
[2018-03-12] MEDS: LACTULOSE 20Gm/30ML SOLN PO SCH (22:09)
[2018-03-13] MEDS: HYDROcodone-ACET 5/325MG TAB PO PRN ×3 (02:33→11:41)
[2018-03-13 04:45] VITALS: BP 112/59
[2018-03-13] MEDS: PIPERACILLIN-TAZOB 2.25GM 50 ML IV SCH ×3 (05:49→17:32)
[2018-03-13 06:45] LABS: Potassium 3.6 mmol/L (3.5-5.1)
[2018-03-13 06:46] LABS: Hemoglobin 7.5 g/dL (13.5-17.5); Red Blood Cells 2.71 10^6/uL (4.5-5.90); White Blood Cell 4.5 10^3/uL (4.4-10.8)
[2018-03-13 06:48] LABS: Hematocrit 22.2 % (41.0-53.0); Mean Corpuscular Hemoglobin 27.6 pg (28.0-32.0); Mean Corpuscular Hgb Conc. 33.6 g/dL (32.0-36.0); Mean Corpuscular Volume 82.1 fL (80.0-100.0); Platelet Count (auto) 86 10^3/uL (140-450); Red Cell Distribution Width 16.5 % (11.8-14.3)
[2018-03-13 06:51] LABS: BUN/Creatinine Ratio 13.2; Calcium 8.4 mg/dL (8.5-10.1)
[2018-03-13 07:15] LABS: Band Neutrophils % (manual) 0; Basophils % (manual) 0 (0.0-2.0); Blast Cells 0; Metamyelocytes % 0; Myelocytes % 0; Promyelocytes % 0; Reactive Lymphocytes 0
[2018-03-13 08:00] VITALS: BP 107/55
[2018-03-13] MEDS: FLUTICASONE PROP NASAL SPR 0.05 % (50MCG) 16GM EACHNOSTRI SCH (10:00)
[2018-03-13] MEDS ORDERED: ENOXAPARIN SOD 120 MG/0.8 ML SYRINGE SC SCH (10:00)
[2018-03-13] MEDS: METOPROLOL SUCCINATE XL 50 MG TAB PO SCH (10:00)
[2018-03-13] MEDS: ASPirin 81 mg TAB PO SCH (10:08)
[2018-03-13] MEDS: MULTIPLE VITAMIN TAB PO SCH (10:08)
[2018-03-13] MEDS: CLOPIDOGREL BISULFATE 75 MG TAB PO SCH (10:08)
[2018-03-13] MEDS: ASCORBIC ACID 500 MG TAB PO SCH (10:08)
[2018-03-13] MEDS: FUROSEMIDE 40 MG TAB PO SCH (10:10)
[2018-03-13 10:36] LABS: Hemoglobin 7.9 g/dL (13.5-17.5)
[2018-03-13 10:40] LABS: Mean Corpuscular Hemoglobin 27.3 pg (28.0-32.0); Mean Corpuscular Hgb Conc. 32.9 g/dL (32.0-36.0); Mean Corpuscular Volume 83.1 fL (80.0-100.0); Platelet Count (auto) 102 10^3/uL (140-450); Red Blood Cells 2.89 10^6/uL (4.5-5.90); White Blood Cell 5.4 10^3/uL (4.4-10.8)
[2018-03-13 10:53] LABS: Band Neutrophils % (manual) 0; Basophils % (manual) 0 (0.0-2.0); Blast Cells 0; Metamyelocytes % 0; Myelocytes % 0; Promyelocytes % 0; Reactive Lymphocytes 0
[2018-03-13 12:34] VITALS: BP 145/52
[2018-03-13 13:52] LABS: Eosinophils % (manual) 2 (0-7); Lymphocytes % (manual) 26 (10.0-50.0); Monocytes % (manual) 13 (0-12)
[2018-03-13 13:56] LABS: Eosinophils % (manual) 2 (0-7); Lymphocytes % (manual) 21 (10.0-50.0); Monocytes % (manual) 20 (0-12)
[2018-03-13] MEDS: TAMSULOSIN HYDROCHLORIDE 0.4 MG CAP PO SCH (17:32)
== END 2018-03-13 18:10 | disposition home or self-care (01) | DRG 252 ==
LOC: ER 15:44 → TELE 15:45 → TELE-EAST 03-06 09:58 → OVERFLOW 03-13 11:27 → TELE-EAST 03-13 11:34
PROVIDERS: ADMIT Nurse Practitioner Family; ATTEND Internal Medicine
PROC: 047Q3ZZ Dilation of Left Anterior Tibial Artery, Percutaneous Approach (ICD-10-PCS; principal; 2018-03-10)
PROC: 047S3ZZ Dilation of Left Posterior Tibial Artery, Percutaneous Approach (ICD-10-PCS; 2018-03-10)
PROC: 047U3ZZ Dilation of Left Peroneal Artery, Percutaneous Approach (ICD-10-PCS; 2018-03-10)
PROC: B41G1ZZ Fluoroscopy of Left Lower Extremity Arteries using Low Osmolar Contrast (ICD-10-PCS; 2018-03-10)
PROC: B41F1ZZ Fluoroscopy of Right Lower Extremity Arteries using Low Osmolar Contrast (ICD-10-PCS; 2018-03-10)
DX: I70.262 Atherosclerosis of native arteries of extremities with gangrene, left leg (principal); N17.0 Acute kidney failure with tubular necrosis; D69.6 Thrombocytopenia, unspecified; I13.0 Hypertensive heart and chronic kidney disease with heart failure and stage 1 through stage 4 chronic kidney disease, or unspecified chronic kidney disease; I48.91 Unspecified atrial fibrillation; I50.9 Heart failure, unspecified; E66.01 Morbid (severe) obesity due to excess calories; N18.3 Chronic kidney disease, stage 3 (moderate); Z99.81 Dependence on supplemental oxygen; N39.0 Urinary tract infection, site not specified; S92.512A Displaced fracture of proximal phalanx of left lesser toe(s), initial encounter for closed fracture; L03.032 Cellulitis of left toe; J44.9 Chronic obstructive pulmonary disease, unspecified; E78.5 Hyperlipidemia, unspecified; K42.9 Umbilical hernia without obstruction or gangrene; E78.00 Pure hypercholesterolemia, unspecified; K59.00 Constipation, unspecified; I25.10 Atherosclerotic heart disease of native coronary artery without angina pectoris; X58.XXXA Exposure to other specified factors, initial encounter; N40.0 Benign prostatic hyperplasia without lower urinary tract symptoms; K21.9 Gastro-esophageal reflux disease without esophagitis; Z86.73 Personal history of transient ischemic attack (TIA), and cerebral infarction without residual deficits; I25.2 Old myocardial infarction; Z98.61 Coronary angioplasty status; Z80.7 Family history of other malignant neoplasms of lymphoid, hematopoietic and related tissues; Z81.8 Family history of other mental and behavioral disorders; Z82.0 Family history of epilepsy and other diseases of the nervous system; Z82.49 Family history of ischemic heart disease and other diseases of the circulatory system; Z83.3 Family history of diabetes mellitus; Z87.891 Personal history of nicotine dependence; Z95.2 Presence of prosthetic heart valve; Z79.899 Other long term (current) drug therapy; Z68.28 Body mass index [BMI] 28.0-28.9, adult; Z88.8 Allergy status to other drugs, medicaments and biological substances; Z88.1 Allergy status to other antibiotic agents; Z90.89 Acquired absence of other organs; Z79.01 Long term (current) use of anticoagulants; Y93.89 Activity, other specified; Y92.89 Other specified places as the place of occurrence of the external cause; Y99.8 Other external cause status
CPT/HCPCS: 29515; 36415; 37228; 71045; 73630; 73700; 75716; 76775; 80048; 80053; 81001; 82140; 82570; 83605; 84100; 84300; 84550; 85007; 85025; 85027; 85610; 85730; 87086; 93005; 93306; 93926; 96365; 96366; 96372; 96375; 99152; 99153; C1769; J1885; J2250; J2270; J2405; J2543; Q9967

== ENCOUNTER 2018-04-23 14:26 | Inpatient (IN) | payer MEDICARE ==
[~2018-04-23] VITALS: Ht 177.8 cm; Wt 86.6 kg
[~2018-04-23 14:26] MED LIST changes: -AMI200T NG; +AMOX-263 PO; +ASCO500T11 PO; +ASPI81TA27 PO; +ATOR1TAB PO; -ATOR20TA50 PO; -CAR3125T NG; -DOXY-216 PO; +ENO100SY SC; +METO25TA62 PO; +TAMS0.4C36 PO; -WARF6TAB21 PO
[2018-04-23 15:12] LABS: Basophils # (auto) 0 uL; Eosinophils # (auto) 0.4 uL; Hematocrit 27.9 % (41.0-53.0); Hemoglobin 9.2 g/dL (13.5-17.5); Mean Corpuscular Hgb Conc. 32.9 g/dL (32.0-36.0); Monocytes # (auto) 0.9 uL; Platelet Count (auto) 105 10^3/uL (140-450)
[2018-04-23 15:13] LABS: Basophils % (auto) 0.4 % (0.0-2.0); Eosinophils % (auto) 5.3 % (0.0-7.0); Lymphocytes # (auto) 0.7 uL; Lymphocytes % (auto) 10.4 % (10.0-50.0); Mean Corpuscular Hemoglobin 26.6 pg (28.0-32.0); Mean Corpuscular Volume 80.8 fL (80.0-100.0); Monocytes % (auto) 13.4 % (0.0-12.0); Neutrophils # (auto) 4.8 uL; Neutrophils % (auto) 70.5 % (37.0-80.0); Red Blood Cells 3.45 10^6/uL (4.5-5.90); Red Cell Distribution Width 16.9 % (11.8-14.3); White Blood Cell 6.7 10^3/uL (4.4-10.8)
[2018-04-23 15:30] LABS: Alanine Aminotransferase 17 U/L (16-61); Alkaline Phosphatase 113 U/L (45-117); Anion Gap 7 (5-15); Aspartate Aminotransferase 19 U/L (15-37); BUN/Creatinine Ratio 14.4; Bilirubin, Total 0.4 mg/dL (0.2-1.0); Blood Urea Nitrogen 21 mg/dL (7-18); Calcium 8.5 mg/dL (8.5-10.1); Carbon Dioxide 30 mmol/L (21-32); Chloride 102 mmol/L (98-107); GFR African American 59 mL/min; GFR Non-African American 49 mL/min; Glucose 109 mg/dL (74-106); Magnesium 2.3 mg/dL (1.6-2.6); Potassium 4.6 mmol/L (3.5-5.1); Sodium 139 mmol/L (136-145); Total Protein 6.9 g/dL (6.4-8.2)
[2018-04-23] MEDS ORDERED: MORPHINE SULFATE 8mg/ml INJ SDV IV PRN (17:30)
[2018-04-23] MEDS ORDERED: ACETAMINOPHEN 500 MG TAB PO PRN (17:30)
[2018-04-23] MEDS ORDERED: MORPHINE SULF(PF) 0.5MG/ML 10ML VIAL IV PRN (17:30)
[2018-04-23] MEDS ORDERED: PROMETHAZINE HCL 25 MG/ML 1ML IV PRN (17:30)
[2018-04-23] MEDS ORDERED: DOCUSATE SOD 100 MG CAP PO PRN (17:30)
[2018-04-23] MEDS ORDERED: ZOLPIDEM TARTRATE 5 MG TAB PO PRN (17:30)
[2018-04-23] MEDS ORDERED: NITROGLYCERIN 0.4 MG SL TAB SL PRN (17:30)
[2018-04-23] MEDS ORDERED: ALBUTEROL SULF 2.5 MG/0.5ML(0.5%) NEB SOLN NEB PRN (17:30)
[2018-04-23] MEDS: PIPERACILLIN-TAZOB 3.375GM 100 ML IV SCH (18:00)
[2018-04-23] MEDS: TAMSULOSIN HYDROCHLORIDE 0.4 MG CAP PO SCH (18:00)
[2018-04-23] MEDS: DOXYCYCLINE 100MG/250ML 250 ML IV SCH (18:30)
[2018-04-23] MEDS: ALBUTEROL SULF 2.5 MG/0.5ML(0.5%) NEB SOLN NEB SCH (18:50)
[2018-04-23] MEDS: IPRATROPIUM BROM 0.5 MG/2.5ML INH SOL NEB SCH (18:50)
[2018-04-23] MEDS: ASCORBIC ACID 500 MG TAB PO SCH (21:54)
[2018-04-23] MEDS: SENNA 8.6 MG TAB PO SCH (21:54)
[2018-04-23] MEDS: CARVEDILOL 3.125 MG TAB PO SCH (21:54)
[2018-04-23] MEDS: ATORVASTATIN 20 MG TAB PO SCH (21:54)
[2018-04-23] MEDS ORDERED: CLOTRIMAZOLE 1 % CREAM 15GM TOP SCH (22:00)
[2018-04-24] VITALS (7 sets, daily range): BP systolic 137–157; BP diastolic 51–73
[2018-04-24] MEDS: IPRATROPIUM BROM 0.5 MG/2.5ML INH SOL NEB SCH ×4 (00:03→18:57)
[2018-04-24] MEDS: ALBUTEROL SULF 2.5 MG/0.5ML(0.5%) NEB SOLN NEB SCH ×4 (00:03→18:57)
[2018-04-24] MEDS: PIPERACILLIN-TAZOB 3.375GM 100 ML IV SCH ×5 (00:18→23:35)
[2018-04-24] MEDS: HYDROcodone-ACET 5/325MG TAB PO PRN ×3 (00:29→13:41)
[2018-04-24] MEDS: SENNA 8.6 MG TAB PO SCH ×3 (06:00→22:02)
[2018-04-24 06:22] LABS: Basophils # (auto) 0 uL; Eosinophils # (auto) 0.4 uL; Hemoglobin 8.3 g/dL (13.5-17.5); Lymphocytes # (auto) 1.1 uL; Mean Corpuscular Hemoglobin 27.1 pg (28.0-32.0); Mean Corpuscular Hgb Conc. 33.6 g/dL (32.0-36.0); Neutrophils # (auto) 3.4 uL
[2018-04-24 06:24] LABS: Basophils % (auto) 0.6 % (0.0-2.0); Eosinophils % (auto) 5.9 % (0.0-7.0); Hematocrit 24.7 % (41.0-53.0); Lymphocytes % (auto) 18.7 % (10.0-50.0); Mean Corpuscular Volume 80.6 fL (80.0-100.0); Monocytes % (auto) 17.6 % (0.0-12.0); Neutrophils % (auto) 57.2 % (37.0-80.0); Nucleated Red Blood Cells % 0.1 %; Red Blood Cells 3.06 10^6/uL (4.5-5.90); Red Cell Distribution Width 17.1 % (11.8-14.3)
[2018-04-24] MEDS: DOXYCYCLINE 100MG/250ML 250 ML IV SCH ×2 (06:32→17:24)
[2018-04-24 06:34] LABS: Platelet Count (auto) 99 10^3/uL (140-450)
[2018-04-24 06:50] LABS: Albumin 2.9 g/dL (3.4-5.0); Bilirubin, Total 0.6 mg/dL (0.2-1.0); Calcium 8.4 mg/dL (8.5-10.1); Potassium 4.4 mmol/L (3.5-5.1); Total Protein 6.1 g/dL (6.4-8.2)
[2018-04-24] MEDS: ASPirin 81 mg TAB PO SCH (09:41)
[2018-04-24] MEDS: CHOLECALCIFEROL (VITD3) 1,000 UNIT TAB PO SCH (09:42)
[2018-04-24] MEDS: FUROSEMIDE 40 MG/4 ML VIAL IV SCH (09:42)
[2018-04-24] MEDS: ASCORBIC ACID 500 MG TAB PO SCH ×2 (09:42→22:02)
[2018-04-24] MEDS: CARVEDILOL 3.125 MG TAB PO SCH ×2 (09:43→22:00)
[2018-04-24] MEDS: POTASSIUM CHL 20 Meq TABLET PO SCH (09:43)
[2018-04-24] MEDS: CLOPIDOGREL BISULFATE 75 MG TAB PO SCH (09:43)
[2018-04-24] MEDS: NITROGLYCERIN 0.2MG/HR TOPICAL PATCH TD SCH (09:44)
[2018-04-24] MEDS ORDERED: ASPirin-EC 81 mg tab PO SCH (10:00)
[2018-04-24] MEDS ORDERED: ENOXAPARIN SOD 150 MG/1 ML SYRINGE SC SCH (10:00)
[2018-04-24] MEDS ORDERED: LORazepam 0.5 MG TAB PO PRN (14:15)
[2018-04-24] MEDS ORDERED: ALPRAZolam 0.25 MG TAB PO PRN (14:45)
[2018-04-24] MEDS: cloNIDine HCL 0.1 MG TAB PO PRN (15:08)
[2018-04-24] MEDS: TAMSULOSIN HYDROCHLORIDE 0.4 MG CAP PO SCH (17:24)
[2018-04-24] MEDS: ENOXAPARIN SOD 100 MG/1 ML SYRINGE SC SCH (22:00)
[2018-04-24] MEDS: ATORVASTATIN 20 MG TAB PO SCH (22:02)
[2018-04-25] VITALS (7 sets, daily range): BP systolic 133–181; BP diastolic 55–66
[2018-04-25] MEDS: IPRATROPIUM BROM 0.5 MG/2.5ML INH SOL NEB SCH ×4 (00:17→18:41)
[2018-04-25] MEDS: ALBUTEROL SULF 2.5 MG/0.5ML(0.5%) NEB SOLN NEB SCH ×4 (00:18→18:41)
[2018-04-25] MEDS: HYDROcodone-ACET 5/325MG TAB PO PRN ×3 (03:43→21:37)
[2018-04-25] MEDS: PIPERACILLIN-TAZOB 3.375GM 100 ML IV SCH ×4 (05:48→23:54)
[2018-04-25] MEDS: SENNA 8.6 MG TAB PO SCH ×3 (05:48→21:37)
[2018-04-25] MEDS: DOXYCYCLINE 100MG/250ML 250 ML IV SCH ×2 (06:24→18:05)
[2018-04-25 08:15] LABS: Hemoglobin 8.7 g/dL (13.5-17.5); Mean Corpuscular Hemoglobin 26.3 pg (28.0-32.0); Mean Corpuscular Hgb Conc. 33.4 g/dL (32.0-36.0); Mean Corpuscular Volume 78.7 fL (80.0-100.0); Platelet Count (auto) 97 10^3/uL (140-450); Red Cell Distribution Width 16.8 % (11.8-14.3); White Blood Cell 5.6 10^3/uL (4.4-10.8)
[2018-04-25 08:17] LABS: Band Neutrophils % (manual) 0
[2018-04-25 08:18] LABS: Basophils % (manual) 0 (0.0-2.0); Blast Cells 0; Metamyelocytes % 0; Myelocytes % 0; Promyelocytes % 0; Reactive Lymphocytes 0
[2018-04-25] MEDS: NITROGLYCERIN 0.2MG/HR TOPICAL PATCH TD SCH (10:00)
[2018-04-25] MEDS: CHOLECALCIFEROL (VITD3) 1,000 UNIT TAB PO SCH (10:01)
[2018-04-25] MEDS: ASCORBIC ACID 500 MG TAB PO SCH ×2 (10:01→21:37)
[2018-04-25] MEDS: ASPirin 81 mg TAB PO SCH (10:01)
[2018-04-25] MEDS: CLOPIDOGREL BISULFATE 75 MG TAB PO SCH (10:01)
[2018-04-25] MEDS: CARVEDILOL 3.125 MG TAB PO SCH ×2 (10:03→21:38)
[2018-04-25] MEDS: POTASSIUM CHL 20 Meq TABLET PO SCH (10:03)
[2018-04-25] MEDS: ENOXAPARIN SOD 100 MG/1 ML SYRINGE SC SCH ×2 (10:03→21:39)
[2018-04-25] MEDS: FUROSEMIDE 40 MG/4 ML VIAL IV SCH (10:03)
[2018-04-25 12:00] LABS: Eosinophils % (manual) 8 (0-7); Lymphocytes % (manual) 10 (10.0-50.0); Monocytes % (manual) 8 (0-12)
[2018-04-25] MEDS: cloNIDine HCL 0.1 MG TAB PO PRN (13:48)
[2018-04-25] MEDS: LACTULOSE 20Gm/30ML SOLN PO PRN (13:49)
[2018-04-25] MEDS: TAMSULOSIN HYDROCHLORIDE 0.4 MG CAP PO SCH (17:20)
[2018-04-25] MEDS: ATORVASTATIN 20 MG TAB PO SCH (21:37)
[2018-04-26] VITALS (7 sets, daily range): BP systolic 129–157; BP diastolic 55–69
[2018-04-26] MEDS: IPRATROPIUM BROM 0.5 MG/2.5ML INH SOL NEB SCH ×4 (00:33→19:35)
[2018-04-26] MEDS: ALBUTEROL SULF 2.5 MG/0.5ML(0.5%) NEB SOLN NEB SCH ×4 (00:33→19:36)
[2018-04-26 06:02] LABS: Hemoglobin 9.5 g/dL (13.5-17.5); White Blood Cell 5.2 10^3/uL (4.4-10.8)
[2018-04-26 06:04] LABS: Mean Corpuscular Hemoglobin 26.5 pg (28.0-32.0); Mean Corpuscular Hgb Conc. 33.7 g/dL (32.0-36.0); Mean Corpuscular Volume 78.6 fL (80.0-100.0); Platelet Count (auto) 98 10^3/uL (140-450); Red Blood Cells 3.56 10^6/uL (4.5-5.90); Red Cell Distribution Width 16.9 % (11.8-14.3)
[2018-04-26 06:09] LABS: Basophils % (manual) 0 (0.0-2.0); Blast Cells 0; Metamyelocytes % 0; Myelocytes % 0; Promyelocytes % 0; Reactive Lymphocytes 0
[2018-04-26 06:11] LABS: Albumin 3.2 g/dL (3.4-5.0); Calcium 8.5 mg/dL (8.5-10.1); Potassium 3.3 mmol/L (3.5-5.1)
[2018-04-26 06:13] LABS: BUN/Creatinine Ratio 15.7
[2018-04-26 06:15] LABS: Bilirubin, Total 0.7 mg/dL (0.2-1.0); Total Protein 7.4 g/dL (6.4-8.2)
[2018-04-26] MEDS: SENNA 8.6 MG TAB PO SCH ×3 (06:19→21:49)
[2018-04-26] MEDS: PIPERACILLIN-TAZOB 3.375GM 100 ML IV SCH ×3 (06:19→17:59)
[2018-04-26] MEDS: DOXYCYCLINE 100MG/250ML 250 ML IV SCH ×2 (06:20→17:59)
[2018-04-26] MEDS: cloNIDine HCL 0.1 MG TAB PO PRN (06:31)
[2018-04-26 08:03] LABS: Band Neutrophils % (manual) 4; Eosinophils % (manual) 4 (0-7); Lymphocytes % (manual) 18 (10.0-50.0); Monocytes % (manual) 20 (0-12)
[2018-04-26] MEDS: ASPirin 81 mg TAB PO SCH (09:01)
[2018-04-26] MEDS: POTASSIUM CHL 20 Meq TABLET PO SCH (09:01)
[2018-04-26] MEDS: ASCORBIC ACID 500 MG TAB PO SCH ×2 (09:01→21:51)
[2018-04-26] MEDS: CLOPIDOGREL BISULFATE 75 MG TAB PO SCH (09:01)
[2018-04-26] MEDS: CARVEDILOL 3.125 MG TAB PO SCH ×2 (09:02→21:48)
[2018-04-26] MEDS: FUROSEMIDE 40 MG/4 ML VIAL IV SCH (09:02)
[2018-04-26] MEDS: ENOXAPARIN SOD 100 MG/1 ML SYRINGE SC SCH ×2 (09:02→21:49)
[2018-04-26] MEDS: CHOLECALCIFEROL (VITD3) 1,000 UNIT TAB PO SCH (09:02)
[2018-04-26] MEDS: NITROGLYCERIN 0.2MG/HR TOPICAL PATCH TD SCH (09:03)
[2018-04-26] MEDS: LACTULOSE 20Gm/30ML SOLN PO PRN (09:05)
[2018-04-26] MEDS ORDERED: POTASSIUM CHL 10% (20 MEQ/15ML) 15ml ORAL SOLN PO ONE (10:00)
[2018-04-26] MEDS ORDERED: BISACODYL 10 MG RECT SUPP PR ONE (10:15)
[2018-04-26] MEDS: TAMSULOSIN HYDROCHLORIDE 0.4 MG CAP PO SCH (18:02)
[2018-04-26] MEDS: ATORVASTATIN 20 MG TAB PO SCH (21:49)
[2018-04-26] MEDS: HYDROcodone-ACET 5/325MG TAB PO PRN (22:48)
[2018-04-27] MEDS: PIPERACILLIN-TAZOB 3.375GM 100 ML IV SCH ×5 (00:09→23:08)
[2018-04-27] MEDS: ALBUTEROL SULF 2.5 MG/0.5ML(0.5%) NEB SOLN NEB SCH ×4 (00:24→18:43)
[2018-04-27] MEDS: IPRATROPIUM BROM 0.5 MG/2.5ML INH SOL NEB SCH ×4 (00:24→18:43)
[2018-04-27 05:06] VITALS: BP 145/55
[2018-04-27] MEDS: HYDROcodone-ACET 5/325MG TAB PO PRN (05:15)
[2018-04-27] MEDS: SENNA 8.6 MG TAB PO SCH ×4 (05:32→22:00)
[2018-04-27 05:33] LABS: Hematocrit 25.3 % (41.0-53.0); Hemoglobin 8.5 g/dL (13.5-17.5); Mean Corpuscular Hemoglobin 26.6 pg (28.0-32.0); Mean Corpuscular Hgb Conc. 33.5 g/dL (32.0-36.0); Mean Corpuscular Volume 79.3 fL (80.0-100.0); Platelet Count (auto) 95 10^3/uL (140-450); Red Blood Cells 3.19 10^6/uL (4.5-5.90); Red Cell Distribution Width 16.7 % (11.8-14.3)
[2018-04-27 05:34] LABS: Band Neutrophils % (manual) 0; Basophils % (manual) 0 (0.0-2.0); Blast Cells 0; Eosinophils % (manual) 0 (0-7); Metamyelocytes % 0; Myelocytes % 0; Promyelocytes % 0; Reactive Lymphocytes 0
[2018-04-27 05:53] LABS: BUN/Creatinine Ratio 14.1; Bilirubin, Total 0.6 mg/dL (0.2-1.0); Calcium 8.6 mg/dL (8.5-10.1); Potassium 3.4 mmol/L (3.5-5.1); Total Protein 6.7 g/dL (6.4-8.2)
[2018-04-27 06:06] LABS: Lymphocytes % (manual) 20 (10.0-50.0); Monocytes % (manual) 26 (0-12)
[2018-04-27] MEDS: DOXYCYCLINE 100MG/250ML 250 ML IV SCH ×2 (06:41→17:51)
[2018-04-27 08:00] VITALS: BP 139/63
[2018-04-27 08:27] VITALS: BP 139/63
[2018-04-27] MEDS: ENOXAPARIN SOD 100 MG/1 ML SYRINGE SC SCH ×2 (09:03→21:45)
[2018-04-27] MEDS: FUROSEMIDE 40 MG/4 ML VIAL IV SCH (09:03)
[2018-04-27] MEDS: ASCORBIC ACID 500 MG TAB PO SCH ×2 (09:04→21:45)
[2018-04-27] MEDS: CARVEDILOL 3.125 MG TAB PO SCH ×2 (09:04→21:44)
[2018-04-27] MEDS: POTASSIUM CHL 20 Meq TABLET PO SCH (09:05)
[2018-04-27] MEDS: CHOLECALCIFEROL (VITD3) 1,000 UNIT TAB PO SCH (09:05)
[2018-04-27] MEDS: NITROGLYCERIN 0.2MG/HR TOPICAL PATCH TD SCH (09:05)
[2018-04-27] MEDS: ASPirin 81 mg TAB PO SCH (09:05)
[2018-04-27] MEDS: CLOPIDOGREL BISULFATE 75 MG TAB PO SCH (09:05)
[2018-04-27 11:52] VITALS: BP 157/62
[2018-04-27 17:07] VITALS: BP 150/62
[2018-04-27] MEDS: TAMSULOSIN HYDROCHLORIDE 0.4 MG CAP PO SCH (17:51)
[2018-04-27] MEDS: ATORVASTATIN 20 MG TAB PO SCH (21:45)
[2018-04-27 22:00] VITALS: BP 150/64
[2018-04-28] MEDS: HYDROcodone-ACET 5/325MG TAB PO PRN ×2 (00:03→21:23)
[2018-04-28] MEDS: IPRATROPIUM BROM 0.5 MG/2.5ML INH SOL NEB SCH ×4 (00:48→18:13)
[2018-04-28] MEDS: ALBUTEROL SULF 2.5 MG/0.5ML(0.5%) NEB SOLN NEB SCH ×4 (00:48→18:13)
[2018-04-28 04:57] VITALS: BP 157/59
[2018-04-28] MEDS: PIPERACILLIN-TAZOB 3.375GM 100 ML IV SCH ×4 (05:06→23:39)
[2018-04-28] MEDS: SENNA 8.6 MG TAB PO SCH ×3 (05:21→21:11)
[2018-04-28] MEDS: DOXYCYCLINE 100MG/250ML 250 ML IV SCH (06:30)
[2018-04-28] MEDS ORDERED: MIDAZOLAM HCL 5 MG/ML-1ML VIAL IV ONE (08:00)
[2018-04-28] MEDS ORDERED: LIDOCAINE VISCOUS 2% 15ML UD PO ONE (08:00)
[2018-04-28] MEDS ORDERED: FLUMAZENIL 0.1 MG/ML INJ 10ML MDV IV ONE ×2 (08:00→08:19)
[2018-04-28] MEDS ORDERED: NALOXONE HCL 0.4 MG/ML VIAL IV ONE (08:00)
[2018-04-28] MEDS ORDERED: fentaNYL CITRATE 100 MCG/2 ML VL IV ONE (08:00)
[2018-04-28] MEDS ORDERED: MIDAZOLAM HCL 1MG/1ML-2 ML VIAL ONE (08:17)
[2018-04-28] MEDS ORDERED: fentaNYL CITRATE 100 MCG/2 ML VL ONE (08:17)
[2018-04-28] MEDS ORDERED: NALOXONE HCL 0.4 MG/ML VIAL ONE (08:19)
[2018-04-28] MEDS ORDERED: LIDOCAINE VISCOUS 2% 15ML UD ONE (08:19)
[2018-04-28 09:00] VITALS: BP 163/72
[2018-04-28] MEDS: POTASSIUM CHL 20 Meq TABLET PO SCH (10:00)
[2018-04-28] MEDS ORDERED: ONDANSETRON HCL 4 MG/2 ML VIAL ONE (10:49)
[2018-04-28] MEDS: CHOLECALCIFEROL (VITD3) 1,000 UNIT TAB PO SCH (10:54)
[2018-04-28] MEDS: ASCORBIC ACID 500 MG TAB PO SCH ×2 (10:54→21:22)
[2018-04-28] MEDS: FUROSEMIDE 40 MG/4 ML VIAL IV SCH (10:54)
[2018-04-28] MEDS: CARVEDILOL 3.125 MG TAB PO SCH ×2 (10:55→21:24)
[2018-04-28] MEDS: NITROGLYCERIN 0.2MG/HR TOPICAL PATCH TD SCH (10:56)
[2018-04-28] MEDS ORDERED: ONDANSETRON HCL 4 MG/2 ML VIAL IV PRN (11:00)
[2018-04-28 11:03] LABS: Hemoglobin 8.4 g/dL (13.5-17.5); White Blood Cell 4.9 10^3/uL (4.4-10.8)
[2018-04-28 11:06] LABS: Hematocrit 26.3 % (41.0-53.0); Mean Corpuscular Volume 81.1 fL (80.0-100.0); Platelet Count (auto) 89 10^3/uL (140-450); Red Blood Cells 3.25 10^6/uL (4.5-5.90); Red Cell Distribution Width 17.4 % (11.8-14.3)
[2018-04-28 11:11] LABS: Band Neutrophils % (manual) 0; Basophils % (manual) 0 (0.0-2.0); Blast Cells 0; Metamyelocytes % 0; Myelocytes % 0; Promyelocytes % 0; Reactive Lymphocytes 0
[2018-04-28 11:30] LABS: Eosinophils % (manual) 2 (0-7); Lymphocytes % (manual) 19 (10.0-50.0); Monocytes % (manual) 16 (0-12)
[2018-04-28 11:33] LABS: BUN/Creatinine Ratio 13.3; Bilirubin, Total 0.7 mg/dL (0.2-1.0); Calcium 8.8 mg/dL (8.5-10.1); Potassium 3.7 mmol/L (3.5-5.1); Total Protein 6.9 g/dL (6.4-8.2)
[2018-04-28 13:00] VITALS: BP 148/61
[2018-04-28 16:54] VITALS: BP 153/70
[2018-04-28] MEDS: TAMSULOSIN HYDROCHLORIDE 0.4 MG CAP PO SCH (16:59)
[2018-04-28] MEDS: DOXYCYCLINE 100 MG TAB/CAP PO SCH (16:59)
[2018-04-28] MEDS: ASPirin 81 mg TAB PO SCH (16:59)
[2018-04-28] MEDS: CLOPIDOGREL BISULFATE 75 MG TAB PO SCH (17:00)
[2018-04-28] MEDS: ENOXAPARIN SOD 100 MG/1 ML SYRINGE SC SCH ×2 (17:00→21:09)
[2018-04-28 21:18] VITALS: BP 141/53
[2018-04-28] MEDS: ATORVASTATIN 20 MG TAB PO SCH (21:22)
[2018-04-29] VITALS (7 sets, daily range): BP systolic 140–154; BP diastolic 63–73
[2018-04-29] MEDS: ALBUTEROL SULF 2.5 MG/0.5ML(0.5%) NEB SOLN NEB SCH ×4 (00:37→18:31)
[2018-04-29] MEDS: IPRATROPIUM BROM 0.5 MG/2.5ML INH SOL NEB SCH ×4 (00:38→18:31)
[2018-04-29] MEDS: SENNA 8.6 MG TAB PO SCH ×3 (05:22→22:30)
[2018-04-29] MEDS: PIPERACILLIN-TAZOB 3.375GM 100 ML IV SCH ×3 (05:33→17:41)
[2018-04-29] MEDS: HYDROcodone-ACET 5/325MG TAB PO PRN ×2 (07:31→20:57)
[2018-04-29] MEDS ORDERED: PHENYLEPHRINE HCL 0.25 % NASAL SPRAY 15ML PRN (09:45)
[2018-04-29] MEDS: CARVEDILOL 3.125 MG TAB PO SCH ×5 (10:00→23:30)
[2018-04-29] MEDS: NITROGLYCERIN 0.2MG/HR TOPICAL PATCH TD SCH (10:36)
[2018-04-29] MEDS: FUROSEMIDE 40 MG/4 ML VIAL IV SCH (10:36)
[2018-04-29] MEDS: CHOLECALCIFEROL (VITD3) 1,000 UNIT TAB PO SCH (10:37)
[2018-04-29] MEDS: ENOXAPARIN SOD 100 MG/1 ML SYRINGE SC SCH ×2 (10:37→22:30)
[2018-04-29] MEDS: DOXYCYCLINE 100 MG TAB/CAP PO SCH ×2 (10:37→22:00)
[2018-04-29] MEDS: POTASSIUM CHL 20 Meq TABLET PO SCH (10:38)
[2018-04-29] MEDS: CLOPIDOGREL BISULFATE 75 MG TAB PO SCH (10:38)
[2018-04-29] MEDS: ASPirin 81 mg TAB PO SCH (10:38)
[2018-04-29] MEDS: ASCORBIC ACID 500 MG TAB PO SCH ×2 (10:38→22:30)
[2018-04-29] MEDS: TAMSULOSIN HYDROCHLORIDE 0.4 MG CAP PO SCH (17:41)
[2018-04-29] MEDS: ATORVASTATIN 20 MG TAB PO SCH (22:30)
[2018-04-29] MEDS ORDERED: PIPERACILLIN-TAZOB 3.375GM 100 ML IV ONE (22:46)
[2018-04-30] MEDS: CARVEDILOL 3.125 MG TAB PO SCH (00:14)
[2018-04-30] MEDS: PIPERACILLIN-TAZOB 3.375GM 100 ML IV SCH ×2 (00:14→05:31)
[2018-04-30] MEDS: ALBUTEROL SULF 2.5 MG/0.5ML(0.5%) NEB SOLN NEB SCH ×3 (00:25→11:05)
[2018-04-30] MEDS: IPRATROPIUM BROM 0.5 MG/2.5ML INH SOL NEB SCH ×3 (00:25→11:05)
[2018-04-30] MEDS: SENNA 8.6 MG TAB PO SCH ×2 (05:31→14:00)
[2018-04-30 05:32] VITALS: BP 146/59
[2018-04-30 08:00] VITALS: BP 159/71
[2018-04-30 08:27] VITALS: BP 159/71
[2018-04-30] MEDS: NITROGLYCERIN 0.2MG/HR TOPICAL PATCH TD SCH (10:00)
[2018-04-30] MEDS: ENOXAPARIN SOD 100 MG/1 ML SYRINGE SC SCH (10:00)
[2018-04-30] MEDS: POTASSIUM CHL 20 Meq TABLET PO SCH (10:00)
[2018-04-30] MEDS: DOXYCYCLINE 100 MG TAB/CAP PO SCH (10:38)
[2018-04-30] MEDS: FUROSEMIDE 40 MG/4 ML VIAL IV SCH (10:39)
[2018-04-30] MEDS: CLOPIDOGREL BISULFATE 75 MG TAB PO SCH (10:40)
[2018-04-30] MEDS: ASPirin 81 mg TAB PO SCH (10:40)
[2018-04-30] MEDS: CHOLECALCIFEROL (VITD3) 1,000 UNIT TAB PO SCH (10:41)
[2018-04-30] MEDS: ASCORBIC ACID 500 MG TAB PO SCH (10:41)
[2018-04-30 11:01] VITALS: BP 159/71
[2018-04-30] MEDS: HYDROcodone-ACET 5/325MG TAB PO PRN (13:32)
== END 2018-04-30 15:50 | disposition home or self-care (01) | DRG 291 ==
LOC: EDBD 14:26 → ER 14:26 → TELE 14:27 → TELE-CENTR 22:15 → CENTRAL 04-30 12:47
PROVIDERS: ADMIT Internal Medicine; ATTEND Family Medicine
PROC: B24BZZ4 Ultrasonography of Heart with Aorta, Transesophageal (ICD-10-PCS; principal; 2018-04-28)
DX: I13.0 Hypertensive heart and chronic kidney disease with heart failure and stage 1 through stage 4 chronic kidney disease, or unspecified chronic kidney disease (principal); J18.1 Lobar pneumonia, unspecified organism; I50.43 Acute on chronic combined systolic (congestive) and diastolic (congestive) heart failure; I69.354 Hemiplegia and hemiparesis following cerebral infarction affecting left non-dominant side; I82.511 Chronic embolism and thrombosis of right femoral vein; I82.532 Chronic embolism and thrombosis of left popliteal vein; J44.0 Chronic obstructive pulmonary disease with (acute) lower respiratory infection; T82.03XA Leakage of heart valve prosthesis, initial encounter; D63.8 Anemia in other chronic diseases classified elsewhere; D69.6 Thrombocytopenia, unspecified; I48.91 Unspecified atrial fibrillation; J44.9 Chronic obstructive pulmonary disease, unspecified; E03.9 Hypothyroidism, unspecified; E78.00 Pure hypercholesterolemia, unspecified; E78.5 Hyperlipidemia, unspecified; F02.80 Dementia in other diseases classified elsewhere, unspecified severity, without behavioral disturbance, psychotic disturbance, mood disturbance, and anxiety; F20.9 Schizophrenia, unspecified; F41.9 Anxiety disorder, unspecified; G30.9 Alzheimer's disease, unspecified; I25.10 Atherosclerotic heart disease of native coronary artery without angina pectoris; E66.3 Overweight; K59.00 Constipation, unspecified; G47.00 Insomnia, unspecified; N18.3 Chronic kidney disease, stage 3 (moderate); I08.2 Rheumatic disorders of both aortic and tricuspid valves; L89.159 Pressure ulcer of sacral region, unspecified stage; Z74.01 Bed confinement status; I25.2 Old myocardial infarction; Z80.7 Family history of other malignant neoplasms of lymphoid, hematopoietic and related tissues; Z81.8 Family history of other mental and behavioral disorders; Z82.0 Family history of epilepsy and other diseases of the nervous system; Z82.49 Family history of ischemic heart disease and other diseases of the circulatory system; Z83.3 Family history of diabetes mellitus; Z89.421 Acquired absence of other right toe(s); Z95.2 Presence of prosthetic heart valve; Z95.5 Presence of coronary angioplasty implant and graft; Z99.81 Dependence on supplemental oxygen; Z68.27 Body mass index [BMI] 27.0-27.9, adult; Z90.89 Acquired absence of other organs; Z89.412 Acquired absence of left great toe; Z88.1 Allergy status to other antibiotic agents; Z88.8 Allergy status to other drugs, medicaments and biological substances; Z79.899 Other long term (current) drug therapy; Z71.3 Dietary counseling and surveillance
CPT/HCPCS: 36415; 71045; 78582; 80053; 80061; 82550; 83735; 83880; 84443; 84484; 85007; 85025; 85027; 85379; 85652; 93005; 93306; 93312; 93970; 94640; 99152; J2250; J2405; J2543; J3490

== ENCOUNTER 2018-05-23 09:54 | Emergency (ER) | payer MEDICARE ==
[~2018-05-23] VITALS: Ht 175.3 cm; Wt 81.6 kg
[~2018-05-23 09:54] MED LIST changes: -AMOX-263 PO; -SACC250C PO
[2018-05-23 11:48] LABS: White Blood Cell 7.6 10^3/uL (4.4-10.8)
[2018-05-23 11:50] LABS: Hematocrit 33.6 % (41.0-53.0); Mean Corpuscular Hemoglobin 25.9 pg (28.0-32.0); Mean Corpuscular Hgb Conc. 32.8 g/dL (32.0-36.0); Platelet Count (auto) 144 10^3/uL (140-450); Red Blood Cells 4.25 10^6/uL (4.5-5.90); Red Cell Distribution Width 16.7 % (11.8-14.3)
[2018-05-23 11:59] LABS: Basophils % (manual) 0 (0.0-2.0); Blast Cells 0; Eosinophils % (manual) 0 (0-7); Metamyelocytes % 0; Myelocytes % 0; Promyelocytes % 0; Reactive Lymphocytes 0
[2018-05-23 12:13] LABS: Albumin 2.8 g/dL (3.4-5.0); BUN/Creatinine Ratio 15.3; Bilirubin, Total 0.6 mg/dL (0.2-1.0); Calcium 9.1 mg/dL (8.5-10.1); Potassium 4.5 mmol/L (3.5-5.1); Total Protein 7.7 g/dL (6.4-8.2)
[2018-05-23 12:45] LABS: Band Neutrophils % (manual) 1; Lymphocytes % (manual) 10 (10.0-50.0); Monocytes % (manual) 22 (0-12)
[2018-05-23 16:53] VITALS: BP 133/71
[2018-05-23] MEDS ORDERED: HYDROcodone-ACET 5/325MG TAB PO ONE (18:45)
== END 2018-05-23 20:10 | disposition home or self-care (01) ==
LOC: EDBD 09:54 → ER 09:56
DX: M75.52 Bursitis of left shoulder (principal); I12.9 Hypertensive chronic kidney disease with stage 1 through stage 4 chronic kidney disease, or unspecified chronic kidney disease; N18.3 Chronic kidney disease, stage 3 (moderate); R53.1 Weakness; E44.0 Moderate protein-calorie malnutrition; D53.9 Nutritional anemia, unspecified; I48.91 Unspecified atrial fibrillation; J44.9 Chronic obstructive pulmonary disease, unspecified; E78.5 Hyperlipidemia, unspecified; I25.2 Old myocardial infarction; Z95.2 Presence of prosthetic heart valve; Z86.73 Personal history of transient ischemic attack (TIA), and cerebral infarction without residual deficits; Z68.26 Body mass index [BMI] 26.0-26.9, adult; Z87.440 Personal history of urinary (tract) infections
CPT/HCPCS: 36415; 71101; 73030; 80053; 85007; 85027; 93005

== ENCOUNTER 2020-08-17 15:54 | Inpatient (IN) | payer MEDICARE ==
[~2020-08-17] VITALS: Ht 172.7 cm; Wt 91.0 kg
[~2020-08-17 15:54] MED LIST changes: +AMIO200T33 PO; +ASPI-543 PO; -ASPI81TA27 PO; +ATOR20TA50 PO; +CARV3.1240 PO; +CYA100I PO; +FURO20TA3 PO; -METO25TA62 PO; +METO25TA93 PO; +POTA-220 PO; +POTA10TA75 PO; -POTA20TA53 PO; +WARF6TAB21 PO
[2020-08-17] MEDS ORDERED: FUROSEMIDE 20 MG/2 ML VIAL IV ONE (16:15)
[2020-08-17] MEDS ORDERED: MORPHINE SULF INJ 2 MG/ML SYRINGE 1ML IV PRN ×3 (18:15→22:15)
[2020-08-17] MEDS ORDERED: NITROGLYCERIN 0.4 MG SL TAB SL PRN ×2 (18:15→22:15)
[2020-08-17 18:30] LABS: Red Cell Distribution Width 15.8 % (11.8-14.3)
[2020-08-17 18:32] LABS: Hematocrit 34.4 % (41.0-53.0); Hemoglobin 11.2 g/dL (13.5-17.5); Mean Corpuscular Hemoglobin 27.8 pg (28.0-32.0); Mean Corpuscular Hgb Conc. 32.6 g/dL (32.0-36.0); Mean Corpuscular Volume 85.2 fL (80.0-100.0); Platelet Count (auto) 58 10^3/uL (140-450); Red Blood Cells 4.04 10^6/uL (4.5-5.90); White Blood Cell 3.8 10^3/uL (4.4-10.8)
[2020-08-17 18:39] LABS: INR 1.99 (0.9-1.15); Partial Thromboplastin Time 43.1 sec (23.0-31.2)
[2020-08-17 18:43] LABS: Albumin 2.9 g/dL (3.4-5.0); BUN/Creatinine Ratio 15.1; Calcium 8.4 mg/dL (8.5-10.1)
[2020-08-17 18:46] LABS: Basophils % (manual) 0 (0.0-2.0); Blast Cells 0; Eosinophils % (manual) 0 (0-7); Metamyelocytes % 0; Myelocytes % 0; Promyelocytes % 0; Reactive Lymphocytes 0
[2020-08-17 18:48] LABS: Bilirubin, Total 0.8 mg/dL (0.2-1.0)
[2020-08-17 19:18] LABS: Urine Bacteria NONE SEEN /hpf (None Seen); Urine Blood Negative /uL (Negative); Urine Hyaline Cast FEW /lpf (0 - 2); Urine Mucus FEW (None Seen); Urine Specific Gravity 1.017 (1.001-1.035); Urine WBC 1 /hpf (0 - 3)
[2020-08-17 19:44] LABS: Band Neutrophils % (manual) 2; Lymphocytes % (manual) 15 (10.0-50.0); Monocytes % (manual) 33 (0-12)
[2020-08-17] MEDS ORDERED: levoFLOXacin 250MG 50 ML IV ONE (22:15)
[2020-08-17] MEDS ORDERED: ACETAMINOPHEN 325 MG TAB PO PRN ×2 (22:15→23:45)
[2020-08-17] MEDS ORDERED: DOCUSATE SOD 100 MG CAP PO PRN (22:15)
[2020-08-17] MEDS ORDERED: ONDANSETRON HCL 4 MG/2 ML VIAL IV PRN (22:15)
[2020-08-17] MEDS ORDERED: LORazepam 0.5 MG TAB PO PRN (22:15)
[2020-08-17] MEDS ORDERED: SODIUM CHLORIDE 0.9% 1,000 ML IV SCH (22:15)
[2020-08-17] MEDS ORDERED: HYDROcodone-ACET 5/325MG TAB PO PRN (22:15)
[2020-08-17] MEDS ORDERED: ALUM & MAG HYDROX-SIMETH LIQ(MAALOX) 30 ML PO PRN (22:15)
[2020-08-17] MEDS ORDERED: VITAMINS A & D (TOPICAL) OINT 5GM TOP PRN (22:15)
[2020-08-17] MEDS ORDERED: VITAMINS A & D (TOPICAL) OINT 5GM TOP ONE (22:15)
[2020-08-17 23:13] LABS: Amphetamine Screen, Urine NEGATIVE (NEGATIVE); Barbiturate Scree,Urine NEGATIVE (NEGATIVE); Benzodiazephine Screen, Urine NEGATIVE (NEGATIVE); Cannabinoid Screen, Urine NEGATIVE (NEGATIVE); Cocaine Screen, Urine NEGATIVE (NEGATIVE); Opiate Scree,Urine NEGATIVE (NEGATIVE); Phencyclidine Screen, Urine NEGATIVE (NEGATIVE)
[2020-08-17 23:30] VITALS: BP 105/63
[2020-08-17] MEDS ORDERED: ACETAMINOPHEN 500 MG TAB PO PRN (23:30)
[2020-08-17 23:35] VITALS: BP 111/61
[2020-08-17 23:59] LABS: Hematocrit 40.4 % (41.0-53.0); Hemoglobin 11.6 g/dL (13.5-17.5); Mean Corpuscular Hemoglobin 27.6 pg (28.0-32.0); Mean Corpuscular Hgb Conc. 28.7 g/dL (32.0-36.0); Mean Corpuscular Volume 96.3 fL (80.0-100.0); Platelet Count (auto) 65 10^3/uL (140-450); White Blood Cell 3.7 10^3/uL (4.4-10.8)
[2020-08-18 00:01] LABS: Band Neutrophils % (manual) 0; Basophils % (manual) 0 (0.0-2.0); Blast Cells 0; Eosinophils % (manual) 0 (0-7); Metamyelocytes % 0; Myelocytes % 0; Promyelocytes % 0; Reactive Lymphocytes 0
[2020-08-18 00:33] LABS: Lymphocytes % (manual) 40 (10.0-50.0); Monocytes % (manual) 5 (0-12)
[2020-08-18 00:41] LABS: BUN/Creatinine Ratio 14.3; Calcium 8.8 mg/dL (8.5-10.1); Potassium 3.8 mmol/L (3.5-5.1)
[2020-08-18 00:43] LABS: Bilirubin, Total 0.9 mg/dL (0.2-1.0); Total Protein 7.3 g/dL (6.4-8.2)
[2020-08-18 02:24] LABS: CRP High Sensitivity 10.9 mg/dL (< 0.3)
[2020-08-18 05:08] VITALS: BP 104/77
[2020-08-18] MEDS: ALBUTEROL SULF HFA 90MCG INH 200DOSE IN SCH ×3 (06:00→22:47)
[2020-08-18] MEDS ORDERED: FUROSEMIDE 20 MG/2 ML VIAL IV SCH (06:00)
[2020-08-18 06:22] LABS: Platelet Count (auto) 58 10^3/uL (140-450); White Blood Cell 3.6 10^3/uL (4.4-10.8)
[2020-08-18 06:25] LABS: Hematocrit 32.3 % (41.0-53.0); Hemoglobin 10.5 g/dL (13.5-17.5); Mean Corpuscular Hemoglobin 27.6 pg (28.0-32.0); Mean Corpuscular Hgb Conc. 32.7 g/dL (32.0-36.0); Mean Corpuscular Volume 84.4 fL (80.0-100.0); Red Blood Cells 3.83 10^6/uL (4.5-5.90); Red Cell Distribution Width 15.5 % (11.8-14.3)
[2020-08-18 06:30] LABS: INR 2.14 (0.9-1.15); Partial Thromboplastin Time 43.9 sec (23.0-31.2)
[2020-08-18 06:39] LABS: Cholesterol 80 mg/dL (< 200); HDL Cholesterol 41 mg/dL (40-59); LDL Cholesterol 38 mg/dL (< 100); Triglycerides 45 mg/dL (< 150)
[2020-08-18 06:40] LABS: Potassium 3.7 mmol/L (3.5-5.1)
[2020-08-18 06:44] LABS: Band Neutrophils % (manual) 0; Basophils % (manual) 0 (0.0-2.0); Blast Cells 0; Promyelocytes % 0; Reactive Lymphocytes 0
[2020-08-18 06:49] LABS: Albumin 2.8 g/dL (3.4-5.0); BUN/Creatinine Ratio 16.1; Bilirubin, Total 0.9 mg/dL (0.2-1.0); Calcium 8.4 mg/dL (8.5-10.1); Magnesium 2.4 mg/dL (1.6-2.6); Total Protein 6.5 g/dL (6.4-8.2)
[2020-08-18 07:12] LABS: Eosinophils % (manual) 1 (0-7); Lymphocytes % (manual) 16 (10.0-50.0); Metamyelocytes % 1; Monocytes % (manual) 46 (0-12); Myelocytes % 1
[2020-08-18 09:00] VITALS: BP 140/84
[2020-08-18] MEDS ORDERED: ASCORBIC ACID 500 MG TAB PO SCH (10:00)
[2020-08-18] MEDS ORDERED: CHOLECALCIFEROL (VITD3) 2,000 UNIT CAP PO SCH (10:00)
[2020-08-18] MEDS ORDERED: DOXYCYCLINE 100MG/250ML 250 ML IV SCH (10:00)
[2020-08-18] MEDS ORDERED: ATORVASTATIN 20 MG TAB PO SCH (10:00)
[2020-08-18] MEDS ORDERED: ENOXAPARIN SOD 40 MG/0.4 ML SYRINGE SC SCH (10:00)
[2020-08-18] MEDS: CARVEDILOL 3.125 MG TAB PO SCH ×2 (10:00→22:45)
[2020-08-18] MEDS ORDERED: levoFLOXacin 250MG 50 ML IV SCH (10:00)
[2020-08-18] MEDS: ZINC SULFATE 220mg CAP or TAB PO SCH (10:22)
[2020-08-18] MEDS: DexAMETHasone SOD PHOS 10MG/1ML VIAL INJ IV SCH (10:22)
[2020-08-18] MEDS: AMIODARONE HCL 200 MG TAB PO SCH (10:22)
[2020-08-18] MEDS: POTASSIUM CHL 20 Meq TABLET PO SCH (10:23)
[2020-08-18] MEDS: CYANOCOBALAMIN 500 MCG TAB PO SCH (10:23)
[2020-08-18] MEDS: CLOPIDOGREL BISULFATE 75 MG TAB PO SCH (10:24)
[2020-08-18] MEDS: ASCORBIC ACID 1,000 MG TAB PO SCH (10:24)
[2020-08-18] MEDS: CHOLECALCIFEROL (VITD3) 2,000 UNIT CAP PO SCH (10:24)
[2020-08-18 13:00] VITALS: BP 131/80
[2020-08-18] MEDS: BUDESONIDE (INHALATION) 180 MCG IH IN SCH ×2 (14:35→22:47)
[2020-08-18 17:00] VITALS: BP_SYST 135; BP_SYST 145; BP_DIAS 66; BP_DIAS 70
[2020-08-18] MEDS ORDERED: WARFARIN SODIUM 2 MG TAB PO ONE (17:00)
[2020-08-18] MEDS: MEROPENEM 1GM IVPB 100 ML IV SCH (17:36)
[2020-08-18] MEDS: FUROSEMIDE 20 MG/2 ML VIAL IV SCH (17:36)
[2020-08-18] MEDS ORDERED: PIPERACILLIN-TAZOB 3.375GM 100 ML IV SCH (18:00)
[2020-08-18 22:00] VITALS: BP 131/61
[2020-08-18] MEDS: TAMSULOSIN HYDROCHLORIDE 0.4 MG CAP PO SCH (22:45)
[2020-08-18] MEDS: ATORVASTATIN 20 MG TAB PO SCH (22:45)
[2020-08-19 05:00] VITALS: BP 140/68
[2020-08-19] MEDS: MEROPENEM 1GM IVPB 100 ML IV SCH ×2 (06:40→17:57)
[2020-08-19] MEDS: FUROSEMIDE 20 MG/2 ML VIAL IV SCH ×2 (06:41→17:56)
[2020-08-19] MEDS: ALBUTEROL SULF HFA 90MCG INH 200DOSE IN SCH ×3 (06:44→22:07)
[2020-08-19] MEDS: BUDESONIDE (INHALATION) 180 MCG IH IN SCH ×2 (06:45→22:07)
[2020-08-19 09:00] VITALS: BP 109/52
[2020-08-19] MEDS ORDERED: PANTOPRAZOLE 40 MG TAB PO SCH (10:00)
[2020-08-19] MEDS: CARVEDILOL 3.125 MG TAB PO SCH ×2 (10:00→22:12)
[2020-08-19] MEDS: DexAMETHasone SOD PHOS 10MG/1ML VIAL INJ IV SCH (10:26)
[2020-08-19] MEDS: ZINC SULFATE 220mg CAP or TAB PO SCH (10:26)
[2020-08-19] MEDS: AMIODARONE HCL 200 MG TAB PO SCH (10:27)
[2020-08-19] MEDS: POTASSIUM CHL 20 Meq TABLET PO SCH (10:28)
[2020-08-19] MEDS: CYANOCOBALAMIN 500 MCG TAB PO SCH (10:29)
[2020-08-19] MEDS: ASCORBIC ACID 1,000 MG TAB PO SCH (10:29)
[2020-08-19] MEDS: CHOLECALCIFEROL (VITD3) 2,000 UNIT CAP PO SCH (10:29)
[2020-08-19] MEDS: CLOPIDOGREL BISULFATE 75 MG TAB PO SCH (10:31)
[2020-08-19] MEDS: FAMOTIDINE 20 MG TAB PO SCH (11:54)
[2020-08-19 12:40] VITALS: BP 107/45
[2020-08-19 16:41] VITALS: BP 100/63
[2020-08-19 17:24] LABS: Hematocrit 37.2 % (41.0-53.0); Hemoglobin 12.2 g/dL (13.5-17.5); Mean Corpuscular Hemoglobin 27.6 pg (28.0-32.0); Mean Corpuscular Hgb Conc. 32.8 g/dL (32.0-36.0); Red Blood Cells 4.42 10^6/uL (4.5-5.90); White Blood Cell 4.5 10^3/uL (4.4-10.8)
[2020-08-19 17:28] LABS: INR 2.7 (0.9-1.15)
[2020-08-19 17:31] LABS: Albumin 2.7 g/dL (3.4-5.0); Calcium 8.4 mg/dL (8.5-10.1); Magnesium 2.5 mg/dL (1.6-2.6); Potassium 4.3 mmol/L (3.5-5.1)
[2020-08-19 17:32] LABS: Mean Corpuscular Volume 84.2 fL (80.0-100.0); Platelet Count (auto) 64 10^3/uL (140-450); Red Cell Distribution Width 15.7 % (11.8-14.3)
[2020-08-19 17:34] LABS: Bilirubin, Total 0.6 mg/dL (0.2-1.0); Total Protein 6.6 g/dL (6.4-8.2)
[2020-08-19 17:38] LABS: Band Neutrophils % (manual) 0; Basophils % (manual) 0 (0.0-2.0); Blast Cells 0; Eosinophils % (manual) 0 (0-7); Metamyelocytes % 0; Myelocytes % 0; Promyelocytes % 0; Reactive Lymphocytes 0
[2020-08-19] MEDS ORDERED: WARFARIN SODIUM 1 MG TAB PO ONE (18:00)
[2020-08-19 18:19] LABS: Lymphocytes % (manual) 10 (10.0-50.0); Monocytes % (manual) 10 (0-12)
[2020-08-19 22:00] VITALS: BP 134/56
[2020-08-19] MEDS: TAMSULOSIN HYDROCHLORIDE 0.4 MG CAP PO SCH (22:11)
[2020-08-19] MEDS: ATORVASTATIN 20 MG TAB PO SCH (22:11)
[2020-08-20] VITALS (7 sets, daily range): BP systolic 93–130; BP diastolic 56–62
[2020-08-20] MEDS: FUROSEMIDE 20 MG/2 ML VIAL IV SCH ×2 (05:33→19:02)
[2020-08-20] MEDS: MEROPENEM 1GM IVPB 100 ML IV SCH (05:33)
[2020-08-20] MEDS: ALBUTEROL SULF HFA 90MCG INH 200DOSE IN SCH ×3 (07:10→23:18)
[2020-08-20] MEDS: BUDESONIDE (INHALATION) 180 MCG IH IN SCH ×2 (07:10→23:18)
[2020-08-20] MEDS: DexAMETHasone SOD PHOS 10MG/1ML VIAL INJ IV SCH (08:53)
[2020-08-20] MEDS: FAMOTIDINE 20 MG TAB PO SCH (08:54)
[2020-08-20] MEDS: ZINC SULFATE 220mg CAP or TAB PO SCH (08:54)
[2020-08-20] MEDS: AMIODARONE HCL 200 MG TAB PO SCH (08:54)
[2020-08-20] MEDS: POTASSIUM CHL 20 Meq TABLET PO SCH (08:54)
[2020-08-20] MEDS: CYANOCOBALAMIN 500 MCG TAB PO SCH (08:55)
[2020-08-20] MEDS: CLOPIDOGREL BISULFATE 75 MG TAB PO SCH (08:55)
[2020-08-20] MEDS: CHOLECALCIFEROL (VITD3) 2,000 UNIT CAP PO SCH (08:56)
[2020-08-20] MEDS: ASCORBIC ACID 1,000 MG TAB PO SCH (08:56)
[2020-08-20] MEDS: CARVEDILOL 3.125 MG TAB PO SCH ×2 (10:00→22:00)
[2020-08-20 15:37] LABS: INR 3.27 (0.9-1.15)
[2020-08-20] MEDS: TAMSULOSIN HYDROCHLORIDE 0.4 MG CAP PO SCH (22:01)
[2020-08-20] MEDS: ATORVASTATIN 20 MG TAB PO SCH (22:01)
[2020-08-21] VITALS (7 sets, daily range): BP systolic 99–132; BP diastolic 52–74
[2020-08-21] MEDS: FUROSEMIDE 20 MG/2 ML VIAL IV SCH (06:01)
[2020-08-21 07:19] LABS: Hematocrit 33.9 % (41.0-53.0); Hemoglobin 11.2 g/dL (13.5-17.5); Mean Corpuscular Hemoglobin 27.7 pg (28.0-32.0); Mean Corpuscular Hgb Conc. 33.1 g/dL (32.0-36.0); Mean Corpuscular Volume 83.5 fL (80.0-100.0); Platelet Count (auto) 84 10^3/uL (140-450); Red Blood Cells 4.06 10^6/uL (4.5-5.90); Red Cell Distribution Width 15.9 % (11.8-14.3)
[2020-08-21 07:28] LABS: INR 3.02 (0.9-1.15)
[2020-08-21 07:43] LABS: Basophils % (manual) 0 (0.0-2.0); Blast Cells 0; Eosinophils % (manual) 0 (0-7); Metamyelocytes % 0; Myelocytes % 0; Promyelocytes % 0; Reactive Lymphocytes 0
[2020-08-21 07:47] LABS: Potassium 4.4 mmol/L (3.5-5.1)
[2020-08-21 07:48] LABS: Band Neutrophils % (manual) 3; Lymphocytes % (manual) 10 (10.0-50.0); Monocytes % (manual) 5 (0-12)
[2020-08-21 07:54] LABS: Albumin 2.8 g/dL (3.4-5.0); BUN/Creatinine Ratio 21.3; Bilirubin, Total 0.5 mg/dL (0.2-1.0); Calcium 8.7 mg/dL (8.5-10.1); Total Protein 6.6 g/dL (6.4-8.2)
[2020-08-21] MEDS: FAMOTIDINE 20 MG TAB PO SCH (09:32)
[2020-08-21] MEDS: CLOPIDOGREL BISULFATE 75 MG TAB PO SCH (09:32)
[2020-08-21] MEDS: CHOLECALCIFEROL (VITD3) 2,000 UNIT CAP PO SCH (09:32)
[2020-08-21] MEDS: ASCORBIC ACID 1,000 MG TAB PO SCH (09:32)
[2020-08-21] MEDS: POTASSIUM CHL 20 Meq TABLET PO SCH (09:32)
[2020-08-21] MEDS: CYANOCOBALAMIN 500 MCG TAB PO SCH (09:32)
[2020-08-21] MEDS: ZINC SULFATE 220mg CAP or TAB PO SCH (09:32)
[2020-08-21] MEDS: DexAMETHasone SOD PHOS 10MG/1ML VIAL INJ IV SCH (09:33)
[2020-08-21] MEDS: CARVEDILOL 3.125 MG TAB PO SCH ×2 (09:33→21:15)
[2020-08-21] MEDS: AMIODARONE HCL 200 MG TAB PO SCH (09:33)
[2020-08-21] MEDS: BUDESONIDE (INHALATION) 180 MCG IH IN SCH ×2 (10:00→22:17)
[2020-08-21] MEDS ORDERED: ERTAPENEM SOD INJ 1 GM in SODIUM CHL 0.9% 50 ML IV ONE (10:00)
[2020-08-21] MEDS: ALBUTEROL SULF HFA 90MCG INH 200DOSE IN SCH ×2 (14:35→22:17)
[2020-08-21] MEDS: TAMSULOSIN HYDROCHLORIDE 0.4 MG CAP PO SCH (21:16)
[2020-08-21] MEDS: ATORVASTATIN 20 MG TAB PO SCH (21:16)
[2020-08-22 05:00] VITALS: BP 122/64
[2020-08-22 06:25] LABS: INR 2.77 (0.9-1.15)
[2020-08-22 06:37] LABS: Potassium 4.3 mmol/L (3.5-5.1)
[2020-08-22 06:43] LABS: BUN/Creatinine Ratio 25.6; Calcium 8.6 mg/dL (8.5-10.1)
[2020-08-22] MEDS: BUDESONIDE (INHALATION) 180 MCG IH IN SCH (06:59)
[2020-08-22] MEDS: ALBUTEROL SULF HFA 90MCG INH 200DOSE IN SCH ×2 (06:59→14:28)
[2020-08-22 08:42] VITALS: BP 95/53
[2020-08-22] MEDS ORDERED: ERTAPENEM SOD INJ 0.5 GM in SODIUM CHL 0.9% 50 ML IV SCH (10:00)
[2020-08-22] MEDS ORDERED: FUROSEMIDE 20 MG/2 ML VIAL IV SCH (10:00)
[2020-08-22] MEDS: DexAMETHasone SOD PHOS 10MG/1ML VIAL INJ IV SCH (10:36)
[2020-08-22] MEDS: ZINC SULFATE 220mg CAP or TAB PO SCH (10:50)
[2020-08-22] MEDS: CLOPIDOGREL BISULFATE 75 MG TAB PO SCH (10:51)
[2020-08-22] MEDS: FAMOTIDINE 20 MG TAB PO SCH (10:51)
[2020-08-22] MEDS: CHOLECALCIFEROL (VITD3) 2,000 UNIT CAP PO SCH (10:51)
[2020-08-22] MEDS: ASCORBIC ACID 1,000 MG TAB PO SCH (10:51)
[2020-08-22] MEDS: CARVEDILOL 3.125 MG TAB PO SCH (10:51)
[2020-08-22] MEDS: CYANOCOBALAMIN 500 MCG TAB PO SCH (10:52)
[2020-08-22] MEDS: AMIODARONE HCL 200 MG TAB PO SCH (10:52)
[2020-08-22] MEDS ORDERED: ZINC220T6 PO (11:54)
[2020-08-22] MEDS ORDERED: METH4PAK PO (11:57)
[2020-08-22] MEDS ORDERED: FAMO20TA10 PO (11:57)
[2020-08-22] MEDS ORDERED: DOCU-94 PO (11:57)
[2020-08-22 12:17] VITALS: BP 112/62
[2020-08-22] MEDS ORDERED: WARFARIN SODIUM 1 MG TAB PO ONE (17:00)
[2020-08-22 17:27] VITALS: BP 97/58
[2020-08-23] MEDS ORDERED: ERTAPENEM SOD INJ 1 GM in SODIUM CHL 0.9% 50 ML IV SCH (10:00)
== END 2020-08-22 18:45 | DRG 871 ==
LOC: EDBD 15:54 → ER 15:54 → MERGE 15:55 → TELE 15:55 → TELE-EAST 23:25
PROVIDERS: ADMIT Hospitalist; ATTEND Internal Medicine
DX: A41.89 Other specified sepsis (principal); U07.1 COVID-19; N17.0 Acute kidney failure with tubular necrosis; J12.89 Other viral pneumonia; I50.43 Acute on chronic combined systolic (congestive) and diastolic (congestive) heart failure; J96.21 Acute and chronic respiratory failure with hypoxia; I13.0 Hypertensive heart and chronic kidney disease with heart failure and stage 1 through stage 4 chronic kidney disease, or unspecified chronic kidney disease; E87.1 Hypo-osmolality and hyponatremia; J44.0 Chronic obstructive pulmonary disease with (acute) lower respiratory infection; J44.1 Chronic obstructive pulmonary disease with (acute) exacerbation; N39.0 Urinary tract infection, site not specified; Z16.12 Extended spectrum beta lactamase (ESBL) resistance; I48.19 Other persistent atrial fibrillation; E44.0 Moderate protein-calorie malnutrition; E78.5 Hyperlipidemia, unspecified; N40.0 Benign prostatic hyperplasia without lower urinary tract symptoms; M19.90 Unspecified osteoarthritis, unspecified site; M81.0 Age-related osteoporosis without current pathological fracture; N18.30 Chronic kidney disease, stage 3 unspecified; Z95.2 Presence of prosthetic heart valve; Z79.01 Long term (current) use of anticoagulants; Z86.73 Personal history of transient ischemic attack (TIA), and cerebral infarction without residual deficits; D63.8 Anemia in other chronic diseases classified elsewhere; D69.6 Thrombocytopenia, unspecified; E05.90 Thyrotoxicosis, unspecified without thyrotoxic crisis or storm; E11.22 Type 2 diabetes mellitus with diabetic chronic kidney disease; G89.29 Other chronic pain; I25.10 Atherosclerotic heart disease of native coronary artery without angina pectoris; I25.5 Ischemic cardiomyopathy; K59.00 Constipation, unspecified; Q11.1 Other anophthalmos; Z79.02 Long term (current) use of antithrombotics/antiplatelets; Z79.899 Other long term (current) drug therapy; Z82.49 Family history of ischemic heart disease and other diseases of the circulatory system; Z82.5 Family history of asthma and other chronic lower respiratory diseases; Z83.3 Family history of diabetes mellitus; Z95.5 Presence of coronary angioplasty implant and graft; I25.2 Old myocardial infarction
CPT/HCPCS: 36415; 36600; 71045; 71250; 80048; 80053; 80061; 80307; 81001; 82728; 82805; 83036; 83605; 83615; 83735; 83880; 84439; 84443; 84484; 85007; 85027; 85379; 85610; 85730; 86141; 87040; 87081; 87086; 87088; 87186; 87426; 94640; 96365; 96375; 97110; 99291; G0378; J1100; J1335; J2185; J3490